=== PATIENT | male | born 1940 | race Caucasian/White ===

== ENCOUNTER 2018-09-04 10:40 | Inpatient (IN) | payer OTHER ==
[2018-09-04] MEDS ORDERED: NA CHLORIDE 0.9% 1,000 ML ONE (11:19)
[2018-09-04 11:30] LABS: Absolute Lymphocytes (CBC) 0.4 K/uL (0.7-4.9); Absolute Neutrophil 5.5 K/uL (1.8-8.0); Basophils % 0.4 % (0-1.3); Eosinophils % 0.8 % (0-4.4); Hematocrit 43.5 % (39.6-49.0); Lymphocytes % 6.2 % (15.3-44.8); Monocytes % 0.5 % (3.3-12.3); RBC Red Blood Cell Count 4.56 M/uL (4.33-5.43)
[2018-09-04 11:34] LABS: Protime INR 1.05
--- NOTE | 2018-09-04 11:40 | RAD REPORT ---
EXAM DESCRIPTION: RAD - Chest Single View - 09/04/2018 11:25 am CLINICAL HISTORY: COUGH Chest pain. COMPARISON: Chest Single View dated 07/28/2016; Chest Single View dated 06/23/2016; CHEST PA AND LAT 2 VIEW dated 10/09/2015; CHEST SINGLE VIEW dated 02/13/2015 FINDINGS: Portable technique limits examination quality. The lungs are grossly clear. Calcifications in the left lobe appear unchanged. The heart is normal in size with changes of prior CABG seen. IMPRESSION: No acute intrathoracic process suspected.
[2018-09-04 12:14] LABS: ALT/SGPT 27 U/L (12-78); AST/SGOT 22 U/L (15-37); Albumin 3.4 g/dL (3.4-5.0); Alkaline Phosphatase 58 U/L (45-117); BUN Blood Urea Nitrogen 27 mg/dL (7-18); Bicarbonate 23 mmol/L (21-32); Bilirubin Direct 0.2 mg/dL (0-0.2); Bilirubin Total 0.5 mg/dL (0.2-1.0); Glucose Level 130 mg/dL (74-106); NT PRO-BNP 237 pg/mL (<450); Potassium 3.4 mmol/L (3.5-5.1); Protein, Total 7.3 g/dL (6.4-8.2); Sodium Level 141 mmol/L (136-145); Troponin (Emerg Dept Use Only) < 0.02 ng/mL (0.0-0.045)
[2018-09-04 12:16] LABS: Blood Morphology Comment NOTED (NOT SEEN); Magnesium 1.1 mg/dL (1.8-2.4); Platelet Estimate ADEQ; Platelets, Giant FEW; Polychromasia 1+
[2018-09-04 13:46] LABS: Urine Bacteria >50 /HPF (NONE SEEN); Urine Culture Reflex Order REFLEXED; Urine RBC <5 /HPF (NONE SEEN)
[2018-09-04] MEDS ORDERED: POTASSIUM 25 MEQ EFFERV TAB ONE (13:47)
[2018-09-04] MEDS ORDERED: VANCOMYCIN 0 GM/0 ML BAG ONE (13:47)
[2018-09-04] MEDS ORDERED: LEVALBUTEROL 1.25 MG/3 ML NEB ONE (13:47)
[2018-09-04] MEDS ORDERED: NA CHLORIDE 0.9% 2,000 ML ONE (13:48)
[2018-09-04] MEDS ORDERED: CEFEPIME 0 GM/0 ML BAG IV ONE (13:48)
[2018-09-04] MEDS ORDERED: Magnesium Sulfate 2gm IVPB 2 G/50 ML BAG IV ONE (13:48)
--- NOTE | 2018-09-04 14:01 | EDPHYS ---
Physician Documentation [facility] Name: Ruel Kumari Age: 78 yrs Sex: Male : 1940 Arrival Date: 09/04/2018 Time: 10:40 Bed 6 Private MD: ED Physician Shaun Tomlinson HPI: 09/04 10:52 This 78 yrs old Male presents to ER via EMS with complaints of cough. cp 10:55 The patient or guardian reports cough, that is intermittent. cp 10:55 Onset: The symptoms/episode began/occurred this morning. Severity of symptoms: in the emergency department the symptoms are unchanged, despite home interventions. Associated signs and symptoms: Pertinent positives: pain bilateral leg. 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 - Social history:: Smoking status: Patient/guardian denies using tobacco. - Ebola Screening: : Patient negative for fever greater than or equal to 101.5 degrees Fahrenheit, and additional compatible Ebola Virus Disease symptoms Patient denies exposure to infectious person Patient denies travel to an Ebola-affected area in the 21 days before illness onset No symptoms or risks identified at this time. ROS: 11:00 Constitutional: Positive for low grade fever, Negative for body aches, poor PO intake. cp 11:00 Eyes: Negative for injury, pain, redness, and discharge. cp 11:00 Cardiovascular: Negative for chest pain, edema, palpitations. cp 11:00 Respiratory: Positive for cough, Negative for shortness of breath, wheezing. 11:00 Abdomen/GI: Positive for vomiting, diarrhea, Negative for abdominal pain, constipation, anorexia, dysphagia, black/tarry stool, rectal bleeding. 11:00 Back: Negative for pain at rest, pain with movement, radiated pain. 11:00 : Negative for hematuria, burning with urination. 11:00 Skin: Negative for cellulitis, rash. 11:00 Neuro: Positive for general weakness, Negative for altered mental status, headache. 11:00 ENT: Negative for drainage from ear(s), ear pain, sore throat, difficulty swallowing, cp difficulty handling secretions. 11:00 All other systems are negative. Exam: 11:03 ECG was reviewed by the Attending Physician. cp 11:05 Constitutional: The patient appears in no acute distress, alert, awake, cp non-diaphoretic, non-toxic, well developed, well nourished. 11:05 Head/Face: Normocephalic, atraumatic. cp 11:05 Eyes: Periorbital structures: appear normal, Pupils: equal, round, and reactive to light and accomodation, Extraocular movements: intact throughout, Conjunctiva: normal, no exudate, no injection, Sclera: no appreciated abnormality, Lids and lashes: appear normal, bilaterally. 11:05 ENT: External ear(s): are unremarkable, Ear canal(s): are normal, clear, TM's: bulging, is not appreciated, bilaterally, dullness, bilaterally, erythema, is not appreciated, bilaterally, Nose: is normal, Mouth: Lips: moist, Oral mucosa: moist, Posterior pharynx: Airway: no evidence of obstruction, patent, Tonsils: are normal in appearance, Uvula: midline, swelling, is not appreciated, erythema, is not appreciated, exudate, is not appreciated. 11:05 Neck: ROM/movement: is normal, is supple, without pain, no range of motions limitations, no meningismus, no nuchal rigidity. 11:05 Chest/axilla: Inspection: normal, Palpation: is normal, no crepitus, no tenderness. 11:05 Cardiovascular: Rate: tachycardic, Rhythm: regular, Heart sounds: murmur, not appreciated, Edema: is not appreciated, JVD: is not appreciated. 11:05 Respiratory: the patient does not display signs of respiratory distress, Respirations: normal, no use of accessory muscles, no retractions, no splinting, no tachypnea, labored breathing, is not present, Breath sounds: decreased breath sounds, that are mild, are located in both bases, rhonchi, are not appreciated, stridor, is not appreciated, wheezing: is not appreciated. 11:05 Abdomen/GI: Inspection: abdomen appears normal, Bowel sounds: normal, in all quadrants, Palpation: abdomen is soft and non-tender, in all quadrants, rebound tenderness, is not appreciated, involuntary guarding, is not appreciated. 11:05 Skin: cellulitis, is not appreciated, no rash present. 11:05 Neuro: Orientation: is normal, Mentation: is normal, Motor: no acute changes, weakness noted left arm and left leg from previous CVA. Vital Signs: 10:46 BP 171 / 76; Pulse 112; Resp 24; Temp 100.0; Pulse Ox 91% on R/A; Weight 72.57 kg; bp Height 5 ft. 6 in. (167.64 cm); 11:21 BP 129 / 80; Pulse 105; Resp 22 S; Pulse Ox 93% on 3 lpm NC; jl7 12:00 BP 120 / 64; Pulse 98; Resp 16 S; Pulse Ox 99% on 3 lpm NC; jl7 13:00 BP 139 / 80; Pulse 99; Resp 16 S; Pulse Ox 98% on R/A; jl7 14:00 BP 123 / 81; Pulse 98; Resp 16 S; Pulse Ox 98% on 3 lpm NC; jl7 14:30 BP 121 / 68; Pulse 98; Resp 16; Pulse Ox 100% on 3 lpm NC; jl7 15:00 BP 121 / 57; Pulse 96; Resp 16; Pulse Ox 98% on 3 lpm NC; jl7 16:00 BP 123 / 64; Pulse 102; Resp 18 S; Pulse Ox 96% on R/A; jl7 10:46 Body Mass Index 25.82 (72.57 kg, 167.64 cm) bp MDM: 10:45 Patient medically screened. mariah 14:00 Physician consultation: A Uri AL was contacted at 13:55, regarding admission, cp patient's condition, would like medications started, Levaquin and Metronidazole. 14:00 Data reviewed: vital signs, nurses notes, lab test result(s), EKG, radiologic studies, cp plain films, and as a result, I will admit patient. Test interpretation: by ED physician or midlevel provider: ECG, plain radiologic studies. Response to treatment: the patient's symptoms have markedly improved after treatment. 09/04 10:51 Order name: Lactate; Complete Time: 12:18 cp 09/04 12:18 Interpretation: Abnormal: LAC 3.3. cp 09/04 10:51 Order name: Influenza Screen (a \T\ B); Complete Time: 11:47 cp 09/04 12:07 Interpretation: Reviewed. cp 09/04 10:51 Order name: Basic Metabolic Panel; Complete Time: 12:18 cp 09/04 12:45 Interpretation: Normal except: K 3.4; GLUC 130; BUN 27; GFR 62; CA 8.3. cp / 10:51 Order name: CBC with Diff; Complete Time: 12:18 cp 09/04 11:48 Interpretation: Normal except: BERRY% 92.1; LYM% 6.2; MN% 0.5; LYMA 0.4; MNA 0.0. cp / 10:51 Order name: LFT's; Complete Time: 12:18 cp 09/04 10:51 Order name: Magnesium; Complete Time: 12:18 cp 09/04 12:45 Interpretation: Abnormal: MG 1.1. cp 09/04 10:51 Order name: NT PRO-BNP; Complete Time: 12:18 cp 09/04 10:51 Order name: PT-INR; Complete Time: 11:47 cp 09/04 10:51 Order name: Troponin (emerg Dept Use Only); Complete Time: 12:18 cp 09/04 10:51 Order name: Procalcitonin; Complete Time: 12:16 cp 09/04 12:16 Interpretation: Normal except: Procalcitonin 1.39. cp 09/04 10:51 Order name: Blood Culture Adult (2) cp / 12:16 Order name: Manual Differential; Complete Time: 12:18 EDMS 09/04 13:14 Order name: Urine Microscopic Only; Complete Time: 13:51 cp 09/04 10:51 Order name: XRAY Chest (1 view); Complete Time: 11:47 cp 09/04 11:47 Interpretation: Report review. cp 09/04 13:14 Order name: Urine Culture cp 09/04 13:17 Order name: Urine Dipstick--Ancillary (enter results) 09/04 13:59 Order name: Stool Culture cp 09/04 13:59 Order name: CDIFF 09/04 14:35 Order name: Basic Metabolic Panel EDMS 09/04 14:35 Order name: Basic Metabolic Panel EDMS 09/04 14:35 Order name: CBC with Automated Diff EDMS 09/04 14:35 Order name: CBC with Automated Diff EDMS 09/04 10:51 Order name: EKG; Complete Time: 10:52 cp 09/04 10:51 Order name: Cardiac monitoring; Complete Time: 11:23 cp 09/04 10:51 Order name: EKG - Nurse/Tech; Complete Time: 11:23 cp 09/04 10:51 Order name: IV Saline Lock; Complete Time: 11:23 cp 09/04 10:51 Order name: Labs collected and sent; Complete Time: 11:23 cp 09/04 10:51 Order name: O2 Per Protocol; Complete Time: 11:23 cp 09/04 10:51 Order name: O2 Sat Monitoring; Complete Time: 11:23 cp 09/04 11:52 Order name: Urine Dipstick-Ancillary (obtain specimen); Complete Time: 13:19 cp 09/04 12:32 Order name: Cath; Complete Time: 13:19 cp 09/04 13:59 Order name: Diet Regular; Complete Time: 14:00 cp EC:03 Rate is 113 beats/min. Rhythm is regular. [place] interval is normal. QRS interval is cp prolonged at 122 msec. QT interval is normal. T waves are Inverted in leads V2, V3. Interpreted by me. Reviewed by me. Administered Medications: 11:21 Drug: NS 0.9% 500 ml Route: IV; Rate: bolus; Site: right antecubital; jl7 12:00 Follow up: IV Status: Completed infusion jl7 11:21 Drug: NS 0.9% 1000 ml Route: IV; Rate: 100 ml/hr; Site: right antecubital; jl7 16:23 Follow up: IV Status: Infusion continued upon admission jl7 12:33 CANCELLED (Physician Discretion): NS 0.9% 1000 ml IV at 1 bolus Per protocol; 1000 mL cp bolus 13:30 Drug: NS 0.9% (30 ml/kg) 30 ml/kg Route: IV; Rate: bolus; Site: right antecubital; 7 15:30 Follow up: IV Status: Completed infusion [facility] 13:57 Not Given (Physician Discretion): Cefepime 1 grams IVPB at 200 ml/hr once over 30 mins; cp (mix in NS 100 mL) 13:57 Not Given (Physician Discretion): vancoMYCIN 1 grams IVPB once over 2 hrs cp 13:58 Drug: Potassium Effervescent Tablet 25 mEq Route: PO; jl7 15:30 Follow up: Response: No adverse reaction jl7 14:27 Drug: Magnesium Sulfate 2 grams Route: IVPB; Infused Over: 2 hrs; Site: right 7 antecubital; 15:30 Follow up: IV Status: Completed infusion [facility] 15:00 Drug: Xopenex (3) 1.25 mg Route: Inhalation; [facility] 15:29 Drug: LevaQUIN 750 mg Volume: 150 ml; Route: IVPB; Infused Over: 90 mins; Site: right 7 antecubital; 16:23 Follow up: Response: No adverse reaction; IV Status: Completed infusion 7 15:29 Drug: metroNIDAZOLE 500 mg Volume: 100 ml; Route: IVPB; Infused Over: 30 mins; Site: [facility] right antecubital; 15:59 Follow up: Response: No adverse reaction; IV Status: Completed infusion 7 Disposition: 09/05 09:18 Co-signature as Attending Physician, Shaun Tomlinson MD I agree with the assessment and mariah plan of care. Disposition: 09/04/18 14:00 Hospitalization ordered by Salma Grewal for Inpatient Admission. Preliminary diagnosis are Other specified sepsis, Diarrhea, unspecified, Hypomagnesemia, Vomiting, Urinary tract infection, site not specified. - Bed requested for Telemetry/MedSurg (Inpatient). - Status is Inpatient Admission. jl7 - Condition is Stable. - Problem is new. - Symptoms have improved. UTI on Admission? Yes Signatures: Dispatcher [employer] Chrystal Perea RN RN dw Anderson, Corey, MD MD cha Page, Corey, PA PA cp Leal, Jahala, RN RN jl7 Moy Perez RN RN bp Corrections: (The following items were deleted from the chart) 02/03 11:48 11:47 Normal except: BERRY% 92.1; LYM% 6.2; MN% 0.5; LYMA 0.4. cp cp 12:16 11:40 CBC Smear Scan ordered. EDMS EDMS 12:33 12:17 NS 0.9% 1000 ml IV at 1 bolus Per protocol; 1000 mL bolus ordered. cp cp 12:45 12:18 Normal except: K 3.4; GLUC 130; BUN 27; GFR 62. cp cp 14: 14:00 Hospitalization Ordered by A Uri AL for Inpatient Admission. Preliminary cp diagnosis is Other specified sepsis; Diarrhea, unspecified. Bed requested for Telemetry/MedSurg (Inpatient). Status is Inpatient Admission. Condition is Stable. Problem is new. Symptoms have improved. UTI on Admission? No. cp 14:16 14:01 09/04/2018 14:00 Hospitalization Ordered by A Uri AL for Inpatient Admission. cp Preliminary diagnosis is Other specified sepsis; Diarrhea, unspecified; Hypomagnesemia; Vomiting. Bed requested for Telemetry/MedSurg (Inpatient). Status is Inpatient Admission. Condition is Stable. Problem is new. Symptoms have improved. UTI on Admission? No. cp 15:18 14:16 09/04/2018 14:00 Hospitalization Ordered by A Uri AL for Inpatient Admission. dw Preliminary diagnosis is Other specified sepsis; Diarrhea, unspecified; Hypomagnesemia; Vomiting; Urinary tract infection, site not specified. Bed requested for Telemetry/MedSurg (Inpatient). Status is Inpatient Admission. Condition is Stable. Problem is new. Symptoms have improved. UTI on Admission? Yes. cp 16:30 15:18 09/04/2018 14:00 Hospitalization Ordered by A Uri AL for Inpatient Admission. jl7 Preliminary diagnosis is Other specified sepsis; Diarrhea, unspecified; Hypomagnesemia; Vomiting; Urinary tract infection, site not specified. Bed requested for Telemetry/MedSurg (Inpatient). Status is Inpatient Admission. Condition is Stable. Problem is new. Symptoms have improved. UTI on Admission? Yes. dw 09/05 14:23 11:00 Constitutional: Negative for body aches, chills, fever, poor PO intake, cp cp 14:23 11:00 Eyes: Negative for injury, pain, redness, and discharge, cp cp 14:23 11:00 ENT: Negative for drainage from ear(s), ear pain, sore throat, difficulty cp swallowing, difficulty handling secretions, cp 11:00 Cardiovascular: Negative for chest pain, edema, palpitations, cp cp 14 11: Neck: Negative for pain with movement, pain at rest, stiffness, tenderness, cp cp : Respiratory: Positive for cough, Negative for shortness of breath, wheezing, cp cp : Abdomen/GI: Positive for vomiting, diarrhea, Negative for abdominal pain, cp constipation, anorexia, black/tarry stool, rectal bleeding, cp Back: Negative for pain at rest, pain with movement, radiated pain, cp cp : Negative for hematuria, burning with urination, testicular pain cp cp Skin: Negative for cellulitis, diaphoresis, rash, cp cp Neuro: Positive for general weakness, Negative for altered mental status, cp headache, cp : All other systems are negative, cp cp
--- NOTE | 2018-09-04 14:01 | ER ---
Nurse's Notes [facility] Name: Ruel Kumari Age: 78 yrs Sex: Male : 1940 Arrival Date: 09/04/2018 Time: 10:40 Bed 6 Private MD: Diagnosis: Other specified sepsis;Diarrhea, unspecified;Hypomagnesemia;Vomiting;Urinary tract infection, site not specified Presentation: 09/04 10:41 Presenting complaint: EMS states: NAUSEA, VOMITING AND DIARRHEA SINCE 0900. Transition bp of care: patient was not received from another setting of care. Onset of symptoms was September 04, 2018 at 09:00. Risk Assessment: Do you want to hurt yourself or someone else? Patient reports no desire to harm self or others. Initial Sepsis Screen: Does the patient meet any 2 criteria? HR > 90 bpm. Does the patient have a suspected source of infection? No. Patient's initial sepsis screen is negative. Care prior to arrival: Medication(s) given: zofran 4 mg, IV initiated. 20 GA, in the right antecubital area, Glucose check: 180 Oxygen administered. via nasal cannula. 10:41 Method Of Arrival: EMS: [facility] bp 10:41 Acuity: MARLIN 3 bp Triage Assessment: 10:47 General: Appears in no apparent distress. comfortable, Behavior is cooperative, bp appropriate for age, anxious. Pain: Denies pain. GI: Reports diarrhea, nausea, vomiting. 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 - Social history:: Smoking status: Patient/guardian denies using tobacco. - Ebola Screening: : Patient negative for fever greater than or equal to 101.5 degrees Fahrenheit, and additional compatible Ebola Virus Disease symptoms Patient denies exposure to infectious person Patient denies travel to an Ebola-affected area in the 21 days before illness onset No symptoms or risks identified at this time. Screenin:49 Abuse screen: Denies threats or abuse. Denies injuries from another. Nutritional bp screening: No deficits noted. Tuberculosis screening: No symptoms or risk factors identified. Fall Risk None identified. Assessment: 10:48 General: SEE TRIAGE NOTE. GI: Abdomen is non-distended, Bowel sounds present X 4 quads. bp 12:00 Reassessment: Patient appears in no apparent distress at this time. No changes from 7 previously documented assessment. Patient and/or family updated on plan of care and expected duration. Pain level reassessed. Patient is alert, oriented x 3, equal unlabored respirations, skin warm/dry/pink. 13:00 Reassessment: Patient appears in no apparent distress at this time. Patient and/or jl7 family updated on plan of care and expected duration. Pain level reassessed. Patient is alert, oriented x 3, equal unlabored respirations, skin warm/dry/pink. 14:00 Reassessment: Patient appears in no apparent distress at this time. No changes from jl7 previously documented assessment. Patient and/or family updated on plan of care and expected duration. Pain level reassessed. Patient is alert, oriented x 3, equal unlabored respirations, skin warm/dry/pink. 15:00 Reassessment: Patient appears in no apparent distress at this time. No changes from jl7 previously documented assessment. Patient and/or family updated on plan of care and expected duration. Pain level reassessed. Patient is alert, oriented x 3, equal unlabored respirations, skin warm/dry/pink. Vital Signs: 10:46 BP 171 / 76; Pulse 112; Resp 24; Temp 100.0; Pulse Ox 91% on R/A; Weight 72.57 kg; bp Height 5 ft. 6 in. (167.64 cm); 11:21 BP 129 / 80; Pulse 105; Resp 22 S; Pulse Ox 93% on 3 lpm NC; jl7 12:00 BP 120 / 64; Pulse 98; Resp 16 S; Pulse Ox 99% on 3 lpm NC; jl7 13:00 BP 139 / 80; Pulse 99; Resp 16 S; Pulse Ox 98% on R/A; jl7 14:00 BP 123 / 81; Pulse 98; Resp 16 S; Pulse Ox 98% on 3 lpm NC; jl7 14:30 BP 121 / 68; Pulse 98; Resp 16; Pulse Ox 100% on 3 lpm NC; jl7 15:00 BP 121 / 57; Pulse 96; Resp 16; Pulse Ox 98% on 3 lpm NC; jl7 16:00 BP 123 / 64; Pulse 102; Resp 18 S; Pulse Ox 96% on R/A; jl7 10:46 Body Mass Index 25.82 (72.57 kg, 167.64 cm) bp ED Course: 10:40 Patient arrived in ED. bp 10:42 Triage completed. bp 10:44 Shaun Lozano PA is PHCP. cp 10:45 Shaun Tomlinson MD is Attending Physician. cp 10:48 Arm band placed on. bp 10:49 Patient has correct armband on for positive identification. Placed in gown. Bed in low bp position. Call light in reach. Side rails up X2. 11:03 Rona Talavera RN is Primary Nurse. jl7 11:26 XRAY Chest (1 view) In Process Unspecified. EDMS 13:18 Urine collected: Welch catheter specimen, clear, jaspreet colored. Welch cath inserted, jb1 using sterile technique, 16 Fr., by me, balloon inflated, to gravity drainage, urine specimen collected. 13:20 Maintain EMS IV. Dressing intact. Good blood return noted. Site clean \T\ dry. Gauge \T\ jl 7 site: 20 right AC. 14:00 Salma Grewal MD is Hospitalizing Provider. cp 16:24 No provider procedures requiring assistance completed. Patient admitted, IV remains in jl7 place. intact, No redness/swelling at site. Administered Medications: 11:21 Drug: NS 0.9% 500 ml Route: IV; Rate: bolus; Site: right antecubital; jl7 12:00 Follow up: IV Status: Completed infusion jl7 11:21 Drug: NS 0.9% 1000 ml Route: IV; Rate: 100 ml/hr; Site: right antecubital; jl7 16:23 Follow up: IV Status: Infusion continued upon admission jl7 12:33 CANCELLED (Physician Discretion): NS 0.9% 1000 ml IV at 1 bolus Per protocol; 1000 mL cp bolus 13:30 Drug: NS 0.9% (30 ml/kg) 30 ml/kg Route: IV; Rate: bolus; Site: right antecubital; jl7 15:30 Follow up: IV Status: Completed infusion jl7 13:57 Not Given (Physician Discretion): Cefepime 1 grams IVPB at 200 ml/hr once over 30 mins; cp (mix in NS 100 mL) 13:57 Not Given (Physician Discretion): vancoMYCIN 1 grams IVPB once over 2 hrs cp 13:58 Drug: Potassium Effervescent Tablet 25 mEq Route: PO; jl7 15:30 Follow up: Response: No adverse reaction jl7 14:27 Drug: Magnesium Sulfate 2 grams Route: IVPB; Infused Over: 2 hrs; Site: right 7 antecubital; 15:30 Follow up: IV Status: Completed infusion jl7 15:00 Drug: Xopenex (3) 1.25 mg Route: Inhalation; jl7 15:29 Drug: LevaQUIN 750 mg Volume: 150 ml; Route: IVPB; Infused Over: 90 mins; Site: right jl7 antecubital; 16:23 Follow up: Response: No adverse reaction; IV Status: Completed infusion jl7 15:29 Drug: metroNIDAZOLE 500 mg Volume: 100 ml; Route: IVPB; Infused Over: 30 mins; Site: [facility] right antecubital; 15:59 Follow up: Response: No adverse reaction; IV Status: Completed infusion jl7 Outcome: 14:00 Decision to Hospitalize by Provider. cp 16:29 Admitted to Tele accompanied by tech, family with patient, via stretcher, room 404, jl7 with chart, Report called to RAQUEL Mcqueen 16:29 Condition: stable jl7 16:29 Discharge instructions given to patient, family, Instructed on the need for admit, Demonstrated understanding of instructions. 16:30 Patient left the ED. jl7 Signatures: Dispatcher [employer] EDMS Cesar Castaneda jb1 Shaun Lozano PA PA Rnoa Castro RN RN jl7 Ana, Moy, RN RN bp
[2018-09-04 14:31] LABS: Urine Blood NEGATIVE (NEG); Urine Glucose NEGATIVE (NEG); Urine Protein NEGATIVE (NEG)
[2018-09-04] MEDS ORDERED: ONDANSETRON 4 MG/2 ML VIAL IV PRN ×2 (14:32→17:51)
[2018-09-04] MEDS ORDERED: METRONIDAZOLE 500mg IVPB 500 MG/100 ML BAG IV ONE (14:35)
[2018-09-04] MEDS ORDERED: Levofloxacin 750mg IV 750 MG/150 ML BAG IV ONE (14:35)
[2018-09-04 17:08] VITALS: BMI 24.5
[2018-09-04] MEDS ORDERED: GLUCAGON 1 MG/VIAL IM PRN (17:53)
[2018-09-04] MEDS ORDERED: D50W 25 GM/50 ML SYRINGE IV PRN (17:53)
[2018-09-04] MEDS: ENOXAPARIN 40 MG/0.4 ML SQ SCH (18:00)
[2018-09-04] MEDS: NA CHLORIDE 0.9% 1,000 ML IV SCH (18:27)
[2018-09-04] MEDS: ACETAMINOPHEN 500 MG TAB PO PRN (20:21)
[2018-09-04] MEDS: INSULIN -REGULAR HUMAN 50 UNIT/0.5 ML ML SQ SCH (20:22)
[2018-09-04] MEDS: DIPYRIDAMOLE/ASPIRIN CAP ER PO SCH (20:23)
[2018-09-04] MEDS: METOPROLOL TAR 25 MG TAB PO SCH (20:29)
[2018-09-04] MEDS ORDERED: POTASSIUM 25 MEQ EFFERV TAB PO ONE (21:00)
[2018-09-04] MEDS ORDERED: METOPROLOL TAR 25 MG TAB PO SCH (21:00)
[2018-09-05] MEDS: METRONIDAZOLE 500mg IVPB 500 MG/100 ML BAG IV SCH ×3 (01:28→17:32)
[2018-09-05 03:40] LABS: Absolute Lymphocytes (CBC) 0.7 K/uL (0.7-4.9); Absolute Monocytes 1.1 K/uL (0.1-1.3); Basophils % 0.3 % (0-1.3); Eosinophils % 0.2 % (0-4.4); Hematocrit 39.1 % (39.6-49.0); Lymphocytes % 4.8 % (15.3-44.8); MPV 11.1 fL (7.6-11.3); Monocytes % 7.2 % (3.3-12.3); RBC Red Blood Cell Count 4.06 M/uL (4.33-5.43)
[2018-09-05 03:49] LABS: Magnesium 1.8 mg/dL (1.8-2.4)
[2018-09-05 04:30] LABS: Blood Morphology Comment NOT SEEN (NOT SEEN); Platelet Estimate ADEQ; Urine White Blood Cell Casts OK
[2018-09-05] MEDS ORDERED: MAGNESIUM SULFATE 1 gm IVPB 1 GM/100 ML BAG IV ONE (04:36)
[2018-09-05] MEDS: NA CHLORIDE 0.9% 1,000 ML IV SCH (05:14)
[2018-09-05] MEDS: ACETAMINOPHEN 500 MG TAB PO PRN (05:14)
[2018-09-05] MEDS: NACHLORIDE 0.45% 1,000 ML IV SCH ×2 (07:18→21:20)
--- NOTE | 2018-09-05 07:24 | EKG ---
Test Date: 2018-09-04 Test Time: 10:49:04 Registered Art Therapist: SILVIO MEASUREMENT RESULTS: Intervals: Rate: 113 [place]: 168 QRSD: 122 QT: 370 QTc: 507 [place]: P: 61 AZ: 168 QRS: -51 T: 48 INTERPRETIVE STATEMENTS: Sinus tachycardia Left axis deviation Right bundle branch block Inferior infarct, age undetermined Abnormal ECG Compared to ECG 07/28/2016 14:12:59 Left-axis deviation now present Right bundle-branch block now present Myocardial infarct finding now present Sinus rhythm no longer present Electronically Signed On 09-05-18 07:19:57 [employer]CH SERV[employer]OCIATE by Pramod Galeano
[2018-09-05] MEDS: INSULIN -REGULAR HUMAN 50 UNIT/0.5 ML ML SQ SCH ×4 (07:30→21:00)
[2018-09-05] MEDS ORDERED: Levofloxacin 750mg IV 750 MG/150 ML BAG IV SCH (09:00)
[2018-09-05] MEDS ORDERED: CEFEPIME 1 GM/VIAL IV SCH (09:00)
[2018-09-05] MEDS ORDERED: LISINOPRIL 20 MG TAB PO SCH (09:00)
[2018-09-05] MEDS ORDERED: ROSUVASTATIN 10 MG TAB PO SCH (09:00)
--- NOTE | 2018-09-05 13:27 | RAD REPORT ---
EXAM DESCRIPTION: CTAbdomen Pelvis W Contrast - 09/05/2018 1:17 pm CLINICAL HISTORY: Abdominal pain. sepsis, vomiting, diarrhea COMPARISON: Abdomen Pelvis W Contrast dated 06/23/2016 TECHNIQUE: Biphasic CT imaging of the abdomen and pelvis was performed with 100 ml non-ionic IV cont rast. All CT scans are performed using dose optimization technique as appropriate and may include automated exposure control or mA/KV adjustment according to patient size. FINDINGS: Subsegmental atelectasis is present in both lung bases with small bilateral pleural effusi ons.Moderate axial hiatal hernia is seen. Diffuse fatty liver infiltration is seen. No focal lesion or biliary dilatation. The spleen, pancreas , adrenal glands and kidneys are within normal limits. No bowel obstruction, free air, free fluid or abscess. The appendix is not identified as a discrete structure, however, no secondary findings of appendicitis are identified. No evidence of significan t lymphadenopathy. No suspicious bony findings. Postsurgical changes are present in the right inguinal region. Moderate lumbosacral degenerative changes. IMPRESSION: Subsegmental atelectasis with trace pleural effusions in both lung bases. Diffuse fatty liver.
[2018-09-05] MEDS: ASPIRIN 81 MG CHEWABLE TABLET PO SCH (14:49)
[2018-09-05] MEDS: DIPYRIDAMOLE/ASPIRIN CAP ER PO SCH ×2 (14:49→23:17)
[2018-09-05] MEDS: METOPROLOL TAR 25 MG TAB PO SCH ×2 (14:49→23:18)
[2018-09-05] MEDS: NORTRIPTYLINE HCL 25 MG CAP PO SCH (14:50)
[2018-09-05] MEDS: CEFEPIME/SWI 1gm 1 GM/10 ML SYR IV SCH ×2 (14:50→23:18)
[2018-09-05] MEDS: LISINOPRIL 20 MG TAB PO SCH (14:50)
[2018-09-05] MEDS: MULTIVIT W/ MINERAL TAB PO SCH (14:50)
[2018-09-05] MEDS: ENOXAPARIN 40 MG/0.4 ML SQ SCH (17:00)
[2018-09-05] MEDS: ROSUVASTATIN 10 MG TAB PO SCH (23:17)
[2018-09-06] MEDS: METRONIDAZOLE 500mg IVPB 500 MG/100 ML BAG IV SCH (01:41)
[2018-09-06 04:38] LABS: Absolute Monocytes 1.1 K/uL (0.1-1.3); Absolute Neutrophil 10.6 K/uL (1.8-8.0); Basophils % 0.4 % (0-1.3); Eosinophils % 1.6 % (0-4.4); Hematocrit 41.2 % (39.6-49.0); Lymphocytes % 7.6 % (15.3-44.8); MPV 11.3 fL (7.6-11.3); Monocytes % 8.3 % (3.3-12.3); RBC Red Blood Cell Count 4.33 M/uL (4.33-5.43)
[2018-09-06 04:46] LABS: Bilirubin Total 0.4 mg/dL (0.2-1.0); Magnesium 1.8 mg/dL (1.8-2.4); Potassium 3.9 mmol/L (3.5-5.1); Protein, Total 6.8 g/dL (6.4-8.2)
[2018-09-06] MEDS: INSULIN -REGULAR HUMAN 50 UNIT/0.5 ML ML SQ SCH ×4 (07:30→21:00)
[2018-09-06] MEDS ORDERED: NACHLORIDE 0.45% 1,000 ML IV SCH (08:00)
[2018-09-06] MEDS ORDERED: MAGNESIUM SULFATE 1 gm IVPB 1 GM/100 ML BAG IV ONE (09:00)
[2018-09-06] MEDS ORDERED: POTASSIUM 25 MEQ EFFERV TAB PO ONE (09:00)
[2018-09-06] MEDS: MULTIVIT W/ MINERAL TAB PO SCH (11:00)
[2018-09-06] MEDS: ASPIRIN 81 MG CHEWABLE TABLET PO SCH (11:00)
[2018-09-06] MEDS: SITAGLIPTIN PHOS 100 MG TAB PO SCH (11:01)
[2018-09-06] MEDS: levoFLOXacin 750 MG TAB PO SCH (11:01)
[2018-09-06] MEDS: LISINOPRIL 20 MG TAB PO SCH (11:02)
[2018-09-06] MEDS: METOPROLOL TAR 25 MG TAB PO SCH ×2 (11:02→23:49)
[2018-09-06] MEDS: DIPYRIDAMOLE/ASPIRIN CAP ER PO SCH ×2 (11:03→23:48)
[2018-09-06] MEDS: NORTRIPTYLINE HCL 25 MG CAP PO SCH (11:04)
[2018-09-06] MEDS: PANTOPRAZOLE 40MG TABLET PO SCH ×2 (11:07→23:51)
[2018-09-06] MEDS: AMPICILLIN/SULBACT 3 GM in NA CHLORIDE 0.9% 100 ML IVPB SCH ×3 (13:17→23:48)
[2018-09-06] MEDS: ENOXAPARIN 40 MG/0.4 ML SQ SCH (17:26)
[2018-09-06] MEDS: HOME MED 1 EA UNK (Mirabegron [Myrbetriq] 50 MG) PO SCH (21:00)
[2018-09-06] MEDS: ROSUVASTATIN 10 MG TAB PO SCH (23:48)
--- NOTE | 2018-09-07 00:50 | PN ---
Date of Progress Note: 09/06/2018 Subjective: The patient was seen this morning for followup. He was feeling better this morning. No abdominal pain, nausea, vomiting, or diarrhea. His appetite is good. Yesterday, he did participate well with physical therapy. Denied any shortness of breath. Objective: Vital Signs: Reviewed. HEENT: Examination unremarkable. Lungs: Clear to auscultation. Heart: Sounds normal. Abdomen: Soft. Bowel sounds normal. No guarding, rigidity, tenderness, or distention. Extremities: No leg edema. Laboratory Data: White count 12.9, hemoglobin 13.8, and platelets 164. Urine culture growing Klebsi priscila. Blood culture gram-negative rods. Definite identification and sensitivity result pending. Ch emistry; sodium 141, potassium 3.9, chloride 110, bicarb 22, BUN 12, creatinine 1.02, glucose 201. P rocalcitonin 8.87. Impression: 1.Sepsis, gram-negative. 2.Urinary tract infection. 3.Hypertension. 4.Diabetes mellitus. Plan: We will go ahead and continue Levaquin according to sensitivity result, but change it to oral Levaquin. We will discontinue cefepime and discontinue metronidazole; and according to sensitivity r esult, we will start him on Unasyn. Clinically, the patient is improving. Procalcitonin level is hi gher today compared to time of admission, but I believe that is expected, and next procalcitonin I ex pect it to be normal. Clinically, the patient is improving very well. Ambulation was encouraged. W e will reduce IV fluid, and I will see him tomorrow for followup. Details and plan of treatment disc ussed with him. Plan is to continue IV antibiotic; and depending on the blood culture results, we will decide possible discharge by this weekend with oral antibiotics. KARIN/MODL Voice ID: [id number] Report ID: [id number]
[2018-09-07 05:09] LABS: Potassium 3.8 mmol/L (3.5-5.1)
[2018-09-07] MEDS ORDERED: POTASSIUM 25 MEQ EFFERV TAB PO ONE (05:19)
[2018-09-07 06:04] LABS: Absolute Lymphocytes (CBC) 1.7 K/uL (0.7-4.9); Absolute Monocytes 1.2 K/uL (0.1-1.3); Absolute Neutrophil 6.7 K/uL (1.8-8.0); Basophils % 0.5 % (0-1.3); Eosinophils % 3.5 % (0-4.4); Hematocrit 40.9 % (39.6-49.0); Lymphocytes % 16.9 % (15.3-44.8); MPV 11.4 fL (7.6-11.3); Monocytes % 11.9 % (3.3-12.3); RBC Red Blood Cell Count 4.35 M/uL (4.33-5.43)
[2018-09-07] MEDS: AMPICILLIN/SULBACT 3 GM in NA CHLORIDE 0.9% 100 ML IVPB SCH ×3 (06:07→17:47)
[2018-09-07] MEDS: INSULIN -REGULAR HUMAN 50 UNIT/0.5 ML ML SQ SCH ×4 (07:30→21:00)
[2018-09-07] MEDS: ASPIRIN 81 MG CHEWABLE TABLET PO SCH (09:43)
[2018-09-07] MEDS: METFORMIN HCL 850 MG TAB PO SCH ×2 (09:43→17:16)
[2018-09-07] MEDS: PANTOPRAZOLE 40MG TABLET PO SCH ×2 (09:43→21:08)
[2018-09-07] MEDS: SITAGLIPTIN PHOS 100 MG TAB PO SCH (09:43)
[2018-09-07] MEDS: NORTRIPTYLINE HCL 25 MG CAP PO SCH (09:43)
[2018-09-07] MEDS: levoFLOXacin 750 MG TAB PO SCH (09:43)
[2018-09-07] MEDS: METOPROLOL TAR 25 MG TAB PO SCH ×2 (09:44→21:08)
[2018-09-07] MEDS: MULTIVIT W/ MINERAL TAB PO SCH (09:44)
[2018-09-07] MEDS: DIPYRIDAMOLE/ASPIRIN CAP ER PO SCH ×2 (09:44→21:07)
[2018-09-07] MEDS: LISINOPRIL 20 MG TAB PO SCH (09:44)
[2018-09-07] MEDS: ENOXAPARIN 40 MG/0.4 ML SQ SCH (17:16)
[2018-09-07] MEDS: HOME MED 1 EA UNK (Mirabegron [Myrbetriq] 50 MG) PO SCH (21:00)
[2018-09-07] MEDS: ROSUVASTATIN 10 MG TAB PO SCH (21:08)
--- NOTE | 2018-09-08 00:14 | PN ---
Date of Progress Note: 09/07/2018 Subjective: The patient was seen this morning for followup. Lying in bed, not in any distress. No new complaints or problems reported. Last night, nurse called me regarding a fall and reported small skin tear on the left elbow area. This morning when I talked to the patient, he informs me that he actually was trying to get to open the door as his IV was beeping and he wanted to get some attention from the nursing staff and as he opened the door and was at the door all of a sudden nurse was tryin g to get inside his room and he actually lost his balance and fell down. Denies any pain anywhere fr om this fall. No hip pain, back pain. No head injury. He has a small skin tear on his left elbow, which was covered by Band-Aid yesterday. Objective: Vital Signs: Reviewed. HEENT: Unremarkable. Lungs: Clear to auscultation. Heart: Sounds normal. Abdomen: Soft. Bowel sounds normal. No guarding, rigidity, tenderness, distention. Extremities: No leg edema. Skin: A small skin tear on the left elbow. No active bleeding. No swelling. Laboratory Data: White count 9.9, hemoglobin 14.1, platelets 164. Sodium 142, potassium 3.8, chlori de 110, bicarb 22, BUN 13, creatinine 1.03, glucose 149, procalcitonin 5.59. Urine culture growing K lebsiella. Blood culture growing Enterobacter. Impression: 1.Septicemia, organism Enterobacter. 2.Urinary tract infection, organism Klebsiella. 3.Hypertension. 4.Diabetes mellitus. 5.Skin tear, left arm. Plan: No further intervention except topical application of Neosporin is needed for skin tear on the left elbow region. Continue current antibiotic which is Unasyn and Levaquin. I will see him tomorr ow for followup. Ambulation was encouraged. Possible discharge to go home in later part of this week. KARIN/MODL Voice ID: [id number] Report ID: [id number]
[2018-09-08] MEDS: AMPICILLIN/SULBACT 3 GM in NA CHLORIDE 0.9% 100 ML IVPB SCH ×4 (00:25→16:59)
[2018-09-08] MEDS: INSULIN -REGULAR HUMAN 50 UNIT/0.5 ML ML SQ SCH ×4 (07:30→21:00)
[2018-09-08] MEDS: METFORMIN HCL 850 MG TAB PO SCH ×2 (09:01→16:56)
[2018-09-08] MEDS: LISINOPRIL 20 MG TAB PO SCH (09:46)
[2018-09-08] MEDS: NORTRIPTYLINE HCL 25 MG CAP PO SCH (09:46)
[2018-09-08] MEDS: MULTIVIT W/ MINERAL TAB PO SCH (09:46)
[2018-09-08] MEDS: levoFLOXacin 750 MG TAB PO SCH (09:46)
[2018-09-08] MEDS: PANTOPRAZOLE 40MG TABLET PO SCH ×2 (09:46→21:16)
[2018-09-08] MEDS: ASPIRIN 81 MG CHEWABLE TABLET PO SCH (09:46)
[2018-09-08] MEDS: SITAGLIPTIN PHOS 100 MG TAB PO SCH (09:46)
[2018-09-08] MEDS: DIPYRIDAMOLE/ASPIRIN CAP ER PO SCH ×2 (09:47→21:16)
[2018-09-08] MEDS: METOPROLOL TAR 25 MG TAB PO SCH ×2 (09:47→21:16)
--- NOTE | 2018-09-08 10:55 | HP ---
Date of Admission: 09/05/2018 Chief Complaint: Chills, nausea, vomiting, diarrhea. Admitting Diagnosis: Urinary tract infection. History Of Present Illness: This is a 78-year-old male patient who was doing fine until yesterday, after he took a shower, all of a sudden started to have chills and was brought into the emergency room. reported that he had some nausea, vomiting, and diarrhea as well. Denies any cough, cold, or congestion. No abdominal pain. No urinary complaints. After the patient was evaluated in the emergency room, he was admitted to the hospital with this problem, and he was started on empiric antibiotics, IV fluid as we were concerned about possibility of sepsis after his evaluation in the emergency room. Overnight, after his care that was provided to him in the hospital, he has felt better this morning. When I saw him this morning, his was not present with him and he was by himself, reported that he is feeling better than yesterday. Allergies: NO KNOWN ALLERGIES. Medications: Aggrenox 1 capsule 2 times a day, aspirin 81 mg daily, rosuvastatin 10 mg daily, Januvia 100 mg daily with breakfast, lisinopril 20 mg daily, metformin 850 mg 2 times a day, metoprolol 25 mg 2 times a day, multivitamin daily, nortriptyline 25 mg daily, omeprazole 20 mg daily. He has taken Myrbetriq 50 mg p.o. daily. Review of Systems: Constitutional: As mentioned above. GI: As mentioned above. All other systems reviewed and negative. Past Medical History: Significant for hypertension, mixed hyperlipidemia, type 2 diabetes mellitus, carotid artery stenosis, benign prostatic hypertrophy, overactive bladder, and prior history of stroke, gastroesophageal reflux disease , coronary artery disease. Past Surgical History: Right carotid artery endarterectomy in 2004, coronary artery bypass surgery in 1995, and hernia repair in 2000. Family History: Significant for coronary artery disease, diabetes mellitus, stroke, asbestosis, hypertension. Social History: Negative for smoking and alcohol use. Physical Examination: Vital Signs: His last vital signs this morning, temperature 99.6, pulse 87, respiratory rate 18, blood pressure 126/60. When he first came in yesterday, temperature 100 degrees Fahrenheit, pulse 112, respiratory rate 24, blood pressure 171/76. His height is 5 feet 6 inches, weight 152 pounds. General: Awake, alert, oriented, not in distress. HEENT: Head atraumatic, normocephalic. Conjunctivae nonerythematous. Sclerae white. Mouth, no thrush or edema noted. Ears/Nose, no mass, lesion, discharge noted. Neck: Supple. No JVD, lymph nodes, bruit, thyromegaly noted. Lungs: Bilateral good equal air entry. Clear to auscultation. No rhonchi. No rales. Heart: Normal heart sounds, no murmur or gallop. Abdomen: Soft, bowel sounds normal. No guarding, rigidity, tenderness, mass, hepatosplenomegaly, distention, or bruit noted. Extremities: No leg edema. No calf tenderness. Skin: No rash, ulcer, cellulitis. Lymphatics: No lymph node enlargement in neck, supraclavicular, infraclavicular region. Neuro: Left-sided hemiparesis, which is old and chronic finding. Chest: Unremarkable. External Genitalia: Deferred. Rectal: Deferred. Laboratory Data: Yesterday white count 5.9, hemoglobin 14.8, platelets 206, 92 % neutrophils, and 6% bands. Today, white count 14.9, hemoglobin 13, platelets 162. INR 1.05. Yesterday, sodium 141, potassium 3.4, chloride 107, bicarb 23, BUN 27, creatinine 1.14, glucose 130, magnesium 1.1. Liver function tests unremarkable. Procalcitonin 1.39. Lactic acid was 4.9. This morning, sodium 144, potassium 4, chloride 110, bicarb 26, BUN 18, creatinine 1.16, glucose 151 , magnesium 1.8. Urinalysis from yesterday, more than 50 bacteria, 2+ ketones, otherwise it was negative. Chest x-ray, no acute cardiopulmonary changes noted. Electrocardiogram, no acute ST-T changes. The patient's both sets of blood culture this morning reported as gram-negative rods. Impression: 1. Sepsis. 2. Acute gastroenteritis. 3. Anemia, unspecified. 4. Hypertension. 5. Hypokalemia. 6. Mixed hyperlipidemia. 7. Type 2 diabetes mellitus. 8. Stroke with left-sided hemiparesis. 9. Carotid artery stenosis. 10. Coronary artery disease. 11. Gastroesophageal reflux disease. 12. Benign prostatic hypertrophy. 13. Overactive bladder. Plan: We will go ahead and admit the patient to hospital for further evaluation and management of this problem. The patient is appropriate for inpatient, and is expected to spend 2 midnights in the hospital. We will continue IV fluid. He received 2 L of IV fluid in the emergency room and then we were giving him normal saline at 75 cc/hour. We will change it to half- normal saline at 75 cc/hour after looking at this morning's chemistry results. Home medications will be continued per order. Diabetes will be managed with sliding scale. The patient was started on Levaquin and metronidazole yesterday. We will continue those 2 antibiotics and add cefepime as per ordered this morning. DVT prophylaxis will be given using Lovenox. We will consult Physical Therapy, and we will get a CAT scan of abdomen and pelvis done today, we will follow up on that result, and stool for C diff and culture is pending. Urine culture, preliminary results more than 100,000 colony, definite identification and sensitivity result pending. We will see the patient tomorrow for followup. Details and plan of treatment discussed with him. KARIN/LAUREN Voice ID: [id number]
[2018-09-08] MEDS: ENOXAPARIN 40 MG/0.4 ML SQ SCH (16:56)
[2018-09-08] MEDS: HOME MED 1 EA UNK (Mirabegron [Myrbetriq] 50 MG) PO SCH (21:00)
[2018-09-08] MEDS: ROSUVASTATIN 10 MG TAB PO SCH (21:16)
[2018-09-09] MEDS: AMPICILLIN/SULBACT 3 GM in NA CHLORIDE 0.9% 100 ML IVPB SCH ×5 (00:49→23:35)
[2018-09-09 06:26] LABS: Absolute Lymphocytes (CBC) 1.7 K/uL (0.7-4.9); Absolute Monocytes 1.2 K/uL (0.1-1.3); Basophils % 0.7 % (0-1.3); Eosinophils % 6.7 % (0-4.4); Hematocrit 39.8 % (39.6-49.0); MPV 10.2 fL (7.6-11.3); Monocytes % 11.7 % (3.3-12.3); RBC Red Blood Cell Count 4.18 M/uL (4.33-5.43)
[2018-09-09 06:30] LABS: Magnesium 1.7 mg/dL (1.8-2.4); Potassium 3.8 mmol/L (3.5-5.1)
[2018-09-09] MEDS ORDERED: MAGNESIUM SULFATE 1 gm IVPB 1 GM/100 ML BAG IV ONE (06:45)
[2018-09-09] MEDS ORDERED: POTASSIUM CL SA 10 MEQ TAB PO ONE (06:48)
[2018-09-09] MEDS: INSULIN -REGULAR HUMAN 50 UNIT/0.5 ML ML SQ SCH ×4 (07:30→21:00)
--- NOTE | 2018-09-09 07:52 | PN ---
Date of Progress Note: 09/08/2018 Subjective: The patient was seen this morning for followup. His was present with him. Objective: Vital Signs: Reviewed. General: He feels fine. Afebrile. Good appetite. HEENT Examination: Unremarkable. Lungs: Clear to auscultation. Heart: Sounds normal. Abdomen: Soft. Bowel sounds normal. No guarding, rigidity, tenderness, distention. Extremities: No leg edema. Impression: 1.Septicemia. 2.Urinary tract infection. 3.Stroke. 4.Hypertension. 5.Type 2 diabetes mellitus. Plan: We will continue current medications and antibiotics. Physical therapy to continue to help am bulate the patient. Plan is to discharge him to go home either Wednesday or Wednesday, and until that po int we will continue current antibiotics. Details and plan of treatment discussed with the patient a nd his . I also informed them that on outpatient basis continue to follow up with urologist for further evaluation and management of this urinary tract infection. I suspect that his urinary tract infection leading to this septicemia is likely due to probably him not able to empty his bladder com pletely, likely due to underlying enlarged prostate, and all these details were discussed with the patient as well as patient's . I will refer him to see urologist on outpatien t basis. KARIN/MODL Voice ID: [id number] Report ID: [id number]
[2018-09-09] MEDS: METFORMIN HCL 850 MG TAB PO SCH ×2 (11:14→16:41)
[2018-09-09] MEDS: LISINOPRIL 20 MG TAB PO SCH (11:15)
[2018-09-09] MEDS: MULTIVIT W/ MINERAL TAB PO SCH (11:15)
[2018-09-09] MEDS: DIPYRIDAMOLE/ASPIRIN CAP ER PO SCH ×2 (11:15→21:34)
[2018-09-09] MEDS: NORTRIPTYLINE HCL 25 MG CAP PO SCH (11:15)
[2018-09-09] MEDS: PANTOPRAZOLE 40MG TABLET PO SCH ×2 (11:15→21:36)
[2018-09-09] MEDS: levoFLOXacin 750 MG TAB PO SCH (11:16)
[2018-09-09] MEDS: METOPROLOL TAR 25 MG TAB PO SCH ×2 (11:16→21:34)
[2018-09-09] MEDS: ASPIRIN 81 MG CHEWABLE TABLET PO SCH (11:16)
[2018-09-09] MEDS: SITAGLIPTIN PHOS 100 MG TAB PO SCH (11:17)
[2018-09-09] MEDS: ENOXAPARIN 40 MG/0.4 ML SQ SCH (16:41)
[2018-09-09] MEDS: HOME MED 1 EA UNK (Mirabegron [Myrbetriq] 50 MG) PO SCH (21:00)
[2018-09-09] MEDS: ROSUVASTATIN 10 MG TAB PO SCH (21:35)
--- NOTE | 2018-09-09 23:03 | PN ---
Date of Progress Note: 09/09/2018 Subjective: Patient was seen this morning for followup. No new complaints or problems reported by edwina desai. Objective: GENERAL: Lying in bed, not in distress. VITAL SIGNS: Reviewed. HEENT: Unremarkable. LUNGS: Clear to auscultation. HEART: Sounds normal. ABDOMEN: Soft. Bowel sounds normal. No guarding, rigidity, tenderness, or distention. EXTREMITIES: No leg edema. Laboratory Data: White count 10.7, hemoglobin 13.6, platelets 233. Procalcitonin 1.51. Sodium 139, potassium 3.8, chloride 107, bicarb 24, BUN 20, creatinine 1.14, glucose 138, magnesium 1.7. Impression: 1.Septicemia. 2.Urinary tract infection. 3.Hypomagnesemia. 4.Hypertension. 5.Type 2 diabetes mellitus. Plan: We will continue current antibiotics. The patient's procalcitonin level is improving very wel l with appropriate antibiotic therapy. We will continue current medications and I will see him tomor row for followup. Replace magnesium per protocol. KARIN/MODL Voice ID: [id number] Report ID: [id number]
[2018-09-10] MEDS: AMPICILLIN/SULBACT 3 GM in NA CHLORIDE 0.9% 100 ML IVPB SCH ×3 (05:44→17:06)
[2018-09-10 06:48] LABS: Magnesium 1.9 mg/dL (1.8-2.4); Potassium 3.4 mmol/L (3.5-5.1)
[2018-09-10] MEDS: INSULIN -REGULAR HUMAN 50 UNIT/0.5 ML ML SQ SCH ×4 (07:30→20:37)
[2018-09-10] MEDS ORDERED: POTASSIUM CL SA 10 MEQ TAB PO ONE (09:00)
[2018-09-10] MEDS: METOPROLOL TAR 25 MG TAB PO SCH ×2 (09:32→20:36)
[2018-09-10] MEDS: METFORMIN HCL 850 MG TAB PO SCH ×2 (09:32→17:06)
[2018-09-10] MEDS: levoFLOXacin 750 MG TAB PO SCH (09:32)
[2018-09-10] MEDS: NORTRIPTYLINE HCL 25 MG CAP PO SCH (09:32)
[2018-09-10] MEDS: DIPYRIDAMOLE/ASPIRIN CAP ER PO SCH ×2 (09:32→20:36)
[2018-09-10] MEDS: LISINOPRIL 20 MG TAB PO SCH (09:33)
[2018-09-10] MEDS: ASPIRIN 81 MG CHEWABLE TABLET PO SCH (09:33)
[2018-09-10] MEDS: MULTIVIT W/ MINERAL TAB PO SCH (09:33)
[2018-09-10] MEDS: PANTOPRAZOLE 40MG TABLET PO SCH ×2 (09:33→20:36)
[2018-09-10] MEDS: SITAGLIPTIN PHOS 100 MG TAB PO SCH (09:33)
--- NOTE | 2018-09-10 13:30 | PN ---
Date of Progress Note: 09/10/2018 Subjective: The patient was seen this morning for followup. No new complaints or problems reported by patient. Lying in bed, not in distress. Objective: Vital Signs: Reviewed. HEENT: Unremarkable. Lungs: Clear to auscultation. Heart: Sounds normal. Abdomen: Soft. Bowel sounds normal. No guarding, rigidity, tenderness, distention. Extremity: No leg edema. Laboratory Data: Sodium 141, potassium 3.4, chloride 105, bicarb 27, BUN 21, creatinine 1.11, glucos e 139, magnesium 1.9. Impression: 1.Sepsis. 2.Urinary tract infection. 3.Hypokalemia. 4.Hypertension. 5.Type 2 diabetes mellitus. Plan: We will continue current antibiotic, which is Unasyn and Levaquin p.o. Replace potassium per protocol. We will repeat blood work tomorrow and if his condition is stable tomorrow, our plan is to discharge him to go home with oral antibiotics tomorrow. KARIN/MODL Voice ID: [id number] Report ID: [id number]
[2018-09-10] MEDS: ENOXAPARIN 40 MG/0.4 ML SQ SCH (17:06)
[2018-09-10] MEDS: ROSUVASTATIN 10 MG TAB PO SCH (20:36)
[2018-09-10] MEDS: HOME MED 1 EA UNK (Mirabegron [Myrbetriq] 50 MG) PO SCH (20:37)
[2018-09-11 04:35] VITALS: O2SAT 95
[2018-09-11] MEDS: AMPICILLIN/SULBACT 3 GM in NA CHLORIDE 0.9% 100 ML IVPB SCH ×4 (04:59→11:27)
[2018-09-11 06:14] LABS: Absolute Lymphocytes (CBC) 1.9 K/uL (0.7-4.9); Absolute Monocytes 1.4 K/uL (0.1-1.3); Absolute Neutrophil 8.1 K/uL (1.8-8.0); Basophils % 0.3 % (0-1.3); Eosinophils % 4.5 % (0-4.4); Hematocrit 39.9 % (39.6-49.0); Lymphocytes % 15.7 % (15.3-44.8); MPV 9.5 fL (7.6-11.3); Monocytes % 11.8 % (3.3-12.3); RBC Red Blood Cell Count 4.13 M/uL (4.33-5.43)
[2018-09-11 07:04] LABS: Potassium 3.6 mmol/L (3.5-5.1)
[2018-09-11] MEDS: INSULIN -REGULAR HUMAN 50 UNIT/0.5 ML ML SQ SCH ×2 (07:30→11:30)
[2018-09-11] MEDS ORDERED: POTASSIUM 25 MEQ EFFERV TAB PO ONE (09:00)
[2018-09-11] MEDS: ASPIRIN 81 MG CHEWABLE TABLET PO SCH (09:47)
[2018-09-11] MEDS: DIPYRIDAMOLE/ASPIRIN CAP ER PO SCH (09:47)
[2018-09-11] MEDS: LISINOPRIL 20 MG TAB PO SCH (09:47)
[2018-09-11] MEDS: MULTIVIT W/ MINERAL TAB PO SCH (09:48)
[2018-09-11] MEDS: PANTOPRAZOLE 40MG TABLET PO SCH (09:48)
[2018-09-11] MEDS: levoFLOXacin 750 MG TAB PO SCH (09:48)
[2018-09-11] MEDS: METOPROLOL TAR 25 MG TAB PO SCH (09:48)
[2018-09-11] MEDS: METFORMIN HCL 850 MG TAB PO SCH (09:49)
[2018-09-11] MEDS: NORTRIPTYLINE HCL 25 MG CAP PO SCH (09:49)
[2018-09-11] MEDS: SITAGLIPTIN PHOS 100 MG TAB PO SCH (09:55)
[2018-09-11 11:48] LABS: Absolute Lymphocytes (CBC) 1.6 K/uL (0.7-4.9); Absolute Monocytes 1.2 K/uL (0.1-1.3); Basophils % 0.6 % (0-1.3); Eosinophils % 3.6 % (0-4.4); Hematocrit 42.2 % (39.6-49.0); Lymphocytes % 14.2 % (15.3-44.8); MPV 9.8 fL (7.6-11.3); Monocytes % 10.3 % (3.3-12.3); RBC Red Blood Cell Count 4.41 M/uL (4.33-5.43)
[2018-09-11 13:15] VITALS: BP 137/73; TEMP 97.6
[2018-09-11] MEDS ORDERED: AMPICILLIN/SULBACT 3 GM in NA CHLORIDE 0.9% 100 ML IVPB SCH (14:00)
== END 2018-09-11 14:31 | disposition home or self-care (01) | DRG 872 ==
LOC: ER 10:40 → ERHOLD 14:31 → 4TH 15:54
PROVIDERS: ADMIT Internal Medicine; ATTEND Internal Medicine
DX: A41.9 Sepsis, unspecified organism (principal); N39.0 Urinary tract infection, site not specified; I69.354 Hemiplegia and hemiparesis following cerebral infarction affecting left non-dominant side; E78.2 Mixed hyperlipidemia; E11.9 Type 2 diabetes mellitus without complications; Z79.4 Long term (current) use of insulin; I65.29 Occlusion and stenosis of unspecified carotid artery; N40.0 Benign prostatic hyperplasia without lower urinary tract symptoms; N32.81 Overactive bladder; Z86.73 Personal history of transient ischemic attack (TIA), and cerebral infarction without residual deficits; K21.9 Gastro-esophageal reflux disease without esophagitis; I25.10 Atherosclerotic heart disease of native coronary artery without angina pectoris; Z95.1 Presence of aortocoronary bypass graft; K52.9 Noninfective gastroenteritis and colitis, unspecified; D64.9 Anemia, unspecified; E87.6 Hypokalemia; I10 Essential (primary) hypertension; E83.42 Hypomagnesemia
CPT/HCPCS: 36415; 51702; 71045; 74177; 80048; 80053; 80076; 81003; 81015; 82962; 83605; 83735; 83880; 84132; 84145; 84484; 85025; 85610; 87040; 87077; 87086; 87088; 87186; 87205; 87804; 93005; 96361; 96365; 96367; 97112; 97116; 97163; 97530; 99285; J0295; J0692; J1650; J3370; J3475; J7030; Q9967

== ENCOUNTER 2019-11-03 09:06 | Emergency (ER) | payer OTHER ==
--- NOTE | 2019-11-03 09:55 | RAD REPORT ---
EXAM DESCRIPTION: RAD - Elbow Left 2 View - 11/03/2019 9:50 am CLINICAL HISTORY: Left elbow pain status fall. FINDINGS: No fracture or dislocation is seen.
--- NOTE | 2019-11-03 09:59 | RAD REPORT ---
EXAM DESCRIPTION: RAD - Pelvis - 11/03/2019 9:51 am CLINICAL HISTORY: Pelvic pain status post injury FINDINGS: No fracture or dislocation is seen. Bones are osteoporotic If the patient continues to have symptoms to suggest an occult fracture then MRI would be recommended A 3 centimeter vague density abuts the proximal left femoral diaphysis. The border is sclerotic. It l ikely is benign. It is recommended that the patient have a followup x-ray of the proximal left femur in 3 months to assess stability
--- NOTE | 2019-11-03 10:04 | RAD REPORT ---
EXAM DESCRIPTION: RAD - Hip Left 2 View - 11/03/2019 9:51 am CLINICAL HISTORY: Left hip pain FINDINGS: No fracture or dislocation is seen. Bones are osteoporotic If the patient continues to have symptoms to suggest an occult fracture then MRI would be recommended A 3 centimeter vague density abuts the proximal left femoral diaphysis. The border is sclerotic. It l ikely is benign. It is recommended that the patient have a followup x-ray of the proximal left femur in 3 months to assess stability .
[2019-11-03 10:20] LABS: Absolute Lymphocytes (CBC) 1.8 K/uL (0.7-4.9); Basophils % 0.9 % (0-1.3); Hematocrit 38.8 % (39.6-49.0); Lymphocytes % 18.5 % (15.3-44.8); MPV 10.5 fL (7.6-11.3); RBC Red Blood Cell Count 4.01 M/uL (4.33-5.43)
[2019-11-03 10:36] LABS: Protime INR 0.94
--- NOTE | 2019-11-03 10:57 | ER ---
Nurse's Notes [facility] Name: Ruel Kumari Age: 79 yrs Sex: Male : 1940 Arrival Date: 11/03/2019 Time: 09:09 Bed 6 Private MD: Salma Grewal C Diagnosis: Contusion of left hip;Contusion of left elbow;Dehydration Presentation: 11/02 09:27 Chief complaint: Spouse and/or significant other states: pt had a fall last Wednesday, iw has been c/o pain to left hip since then, tripped and fell backwards last night, and again this morning, denies hitting head, also has pain and swelling to left elbow. Coronavirus screen: Patient denies fever greater than 100.4F, cough, shortness of breath, or difficulty breathing. Proceed with normal triage process. Ebola Screen: Patient negative for fever greater than or equal to 101.5 degrees Fahrenheit, and additional compatible Ebola Virus Disease symptoms Patient denies exposure to infectious person. Patient denies travel to an Ebola-affected area in the 21 days before illness onset. No symptoms or risks identified at this time. Initial Sepsis Screen: Does the patient meet any 2 criteria? No. Patient's initial sepsis screen is negative. Does the patient have a suspected source of infection? No. Patient's initial sepsis screen is negative. Risk Assessment: Do you want to hurt yourself or someone else? Patient reports no desire to harm self or others. 09:27 Method Of Arrival: Wheelchair iw 09:27 Acuity: MARLIN 4 iw Historical: - Allergies: 09:29 Bactrim; iw - Family history:: not pertinent. - Hospitalizations: : No recent hospitalization is reported. Screenin:50 Abuse screen: Denies threats or abuse. Nutritional screening: No deficits noted. em Tuberculosis screening: No symptoms or risk factors identified. Fall Risk Fall in past 12 months (25 points). IV access (20 points). Total Reeves Fall Scale indicates High Risk Score (45 or more points). Fall prevention measures have been instituted. Placed Close to Nursing Station 1:1 Attendant Assigned. Assessment: 09:37 Reassessment: currently in radiology. em 09:50 Reassessment: Patient appears in no apparent distress at this time. returned from em radiology. 09:50 General: Appears in no apparent distress. comfortable, Behavior is calm, cooperative, em Reports reports falling 2 days ago Denies fever. Pain: Complains of pain in pelvis and left elbow Pain currently is 4 out of 10 on a pain scale. at worst was 10 out of 10 on a pain scale. Pain began 2-3 days ago. Neuro: Level of Consciousness is awake, alert, obeys commands, Oriented to person, place, time, situation, Appropriate for age. Cardiovascular: Capillary refill < 3 seconds Patient's skin is warm and dry. Respiratory: Airway is patent Respiratory effort is even, unlabored, Respiratory pattern is regular, symmetrical. GI: Abdomen is flat. Derm: Skin is intact, is healthy with good turgor, Skin is pink, warm \T\ dry. 09:50 Musculoskeletal: Capillary refill < 3 seconds, Range of motion: limited in left hip. em 11:26 Reassessment: pending completion of IV NS, notified of pt discharge. em Vital Signs: 09:27 Pulse 72; Resp 16; Temp 97.9; Pulse Ox 100% on R/A; Weight 73.94 kg; Height 5 ft. 6 in. iw (167.64 cm); 09:45 BP 127 / 75; Pulse 72; Resp 18; Pulse Ox 99% on R/A; em 10:59 BP 137 / 74; Pulse 72; Resp 18; Pulse Ox 100% on R/A; em 09:27 Body Mass Index 26.31 (73.94 kg, 167.64 cm) iw ED Course: 09:09 Patient arrived in ED. ag5 09:10 Salma Grewal MD is Private Physician. ag5 09:12 Shiv Martinez MD is Attending Physician. rn 09:24 Rona Talavera RN is Primary Nurse. jl7 09:29 Triage completed. iw 09:45 XRAY Hip LEFT 2 view In Process Unspecified. EDMS 09:45 XRAY Pelvis In Process Unspecified. EDMS 09:45 Elbow Left 2 View In Process Unspecified. EDMS 09:45 Patient has correct armband on for positive identification. Bed in low position. Call em light in reach. Side rails up X2. Pulse ox on. NIBP on. 10:00 Initial lab(s) drawn, by me, sent to lab. Inserted saline lock: 22 gauge in right em antecubital area, using aseptic technique. Blood collected. 10:55 Salma Grewal MD is Referral Physician. rn 12:00 No provider procedures requiring assistance completed. IV discontinued, intact, em bleeding controlled, No redness/swelling at site. Pressure dressing applied. Administered Medications: 11:07 Drug: NS 0.9% 500 ml Route: IV; Rate: bolus; Site: right antecubital; em 12:00 Follow up: IV Status: Completed infusion; IV Intake: 500ml em Intake: 12:00 IV: 500ml; Total: 500ml. em Outcome: 10:57 Discharge ordered by MD. rn 12:00 Discharged to home via wheelchair. em 12:00 Condition: good 12:00 Discharge instructions given to patient, Instructed on discharge instructions, follow up and referral plans. Demonstrated understanding of instructions, follow-up care. 12:01 Patient left the ED. em Signatures: Dispatcher [employer] Blaze Hunt RN RN em Williams, Irene, RN RN iw Nieto, Roman, MD MD rn Leal, Jahala, RN RN jl7 G[place]in, Ajare [facility] [place]
--- NOTE | 2019-11-03 10:57 | EDPHYS ---
Physician Documentation [facility] Name: Ruel Kumari Age: 79 yrs Sex: Male : 1940 Arrival Date: 11/03/2019 Time: 09:09 Bed 6 Private MD: Salma Grewal C ED Physician Shiv Martinez HPI: 11/02 09:24 This 79 yrs old Male presents to ER via Unassigned with complaints of Fall rn Injury, Hip Pain. 09:24 Details of fall: The patient fell from an upright position, while walking. Onset: The rn symptoms/episode began/occurred 1 week(s) ago. Associated injuries: The patient sustained left hip and left elbow. Severity of symptoms: At their worst the symptoms were moderate, in the emergency department the symptoms are unchanged. The patient has not experienced similar symptoms in the past. Reports several falls over last week, big fall when tripped over floor fidencio, landed on left side, has been hurting since, daughter reports more falls since then. Reports isolated left hip and left elbow pain. No head or nieck/back injury or pain. No LOC. Takes aggrenox. . Historical: - Allergies: 09:29 Bactrim; iw - Family history:: not pertinent. - Hospitalizations: : No recent hospitalization is reported. ROS: 09:24 Constitutional: Negative for fever, chills, and weight loss, Eyes: Negative for injury, rn pain, redness, and discharge, Neck: Negative for injury, pain, and swelling, Cardiovascular: Negative for chest pain, palpitations, and edema, Respiratory: Negative for shortness of breath, cough, wheezing, and pleuritic chest pain, Abdomen/GI: Negative for abdominal pain, nausea, vomiting, diarrhea, and constipation, Back: Negative for injury and pain, MS/Extremity: + left hip injury and pain, + left elbow pain Skin: Negative for injury, rash, and discoloration, Neuro: Negative for headache, weakness, numbness, tingling, and seizure. Exam: 09:24 Constitutional: This is a well developed, well nourished patient who is awake, alert, rn and in no acute distress. Slow to move from wheelchair to bed. Head/Face: Normocephalic, atraumatic. Eyes: Pupils equal round and reactive to light, extra-ocular motions intact. Lids and lashes normal. Conjunctiva and sclera are non-icteric and not injected. Cornea within normal limits. Periorbital areas with no swelling, redness, or edema. Neck: Trachea midline, no thyromegaly or masses palpated, and no cervical lymphadenopathy. Supple, full range of motion without nuchal rigidity, or vertebral point tenderness. No Meningismus. Cardiovascular: Regular rate and rhythm. No pulse deficits. Respiratory: No increased work of breathing, no retractions or nasal flaring. Abdomen/GI: soft, non-tender Back: No spinal tenderness. No costovertebral tenderness. Full range of motion. MS/ Extremity: Pulses equal, no cyanosis. + able to stand with assistance, + mild left elbow pain and swelling, + left lateral hip tenderness without ecchymosis or swelling. No open wounds. Neuro: Awake and alert, GCS 15, oriented to person, place, time, and situation. Cranial nerves II-XII grossly intact. Motor strength 5/5 in all extremities. Sensory grossly intact. Cerebellar exam normal. Normal gait. Vital Signs: 09:27 Pulse 72; Resp 16; Temp 97.9; Pulse Ox 100% on R/A; Weight 73.94 kg; Height 5 ft. 6 in. iw (167.64 cm); 09:45 BP 127 / 75; Pulse 72; Resp 18; Pulse Ox 99% on R/A; em 10:59 BP 137 / 74; Pulse 72; Resp 18; Pulse Ox 100% on R/A; em 09:27 Body Mass Index 26.31 (73.94 kg, 167.64 cm) iw MDM: 09:14 Patient medically screened. rn 10:05 ED course: No fracture/dislocation of hip/pelvis/elbow. Scerlotic area on femur, unit manager rn reports likely benign, notified patient of incidental finding and given copies of xray reads. . 10:50 Differential diagnosis: contusion, fracture, sprain, strain. Data reviewed: vital rn signs, nurses notes, lab test result(s), radiologic studies, plain films, and as a result, I will discharge patient. Counseling: I had a detailed discussion with the patient and/or guardian regarding: the historical points, exam findings, and any diagnostic results supporting the discharge/admit diagnosis, lab results, radiology results, the need for outpatient follow up, to return to the emergency department if symptoms worsen or persist or if there are any questions or concerns that arise at home. Special discussion: I discussed with the patient/guardian in detail that at this point there is no indication for admission to the hospital. It is understood, however, that if the symptoms persist or worsen the patient needs to return immediately for re-evaluation. Based on the history and exam findings, there is no indication for further emergent testing or inpatient evaluation. I discussed with the patient/guardian the need to see the primary care provider for further evaluation of the symptoms. 11/02 09:24 Order name: CBC with Diff; Complete Time: 10:48 rn 11/02 09:24 Order name: Protime (+inr); Complete Time: 10:48 rn 11/02 09:24 Order name: Ptt, Activated; Complete Time: 10:48 rn 11/02 09:24 Order name: XRAY Hip LEFT 2 view; Complete Time: 10:05 rn 11/02 09:24 Order name: XRAY Pelvis; Complete Time: 10:05 rn 11/02 09:24 Order name: Basic Metabolic Panel; Complete Time: 10:48 rn 11/02 09:24 Order name: IV Start; Complete Time: 09:59 rn 11/02 09:44 Order name: Elbow Left 2 View; Complete Time: 10:05 EDMS Administered Medications: 11:07 Drug: NS 0.9% 500 ml Route: IV; Rate: bolus; Site: right antecubital; em 12:00 Follow up: IV Status: Completed infusion; IV Intake: 500ml em Disposition: 11/03/19 10:57 Discharged to Home. Impression: Contusion of left hip, Contusion of left elbow, Dehydration. - Condition is Stable. - Discharge Instructions: Contusion, Dehydration, Adult, Elbow Contusion. - Medication Reconciliation Form, Thank You Letter, Antibiotic Education, Prescription Opioid Use form. - Follow up: Salma Grewal MD; When: As needed; Reason: Recheck today's complaints, Re-evaluation by your physician. - Problem is new. - Symptoms have improved. Signatures: Dispatcher [employer] EDBlaze Edwards RN RN em Williams, Irene, RN RN iw Shiv Martinez MD MD rn Corrections: (The following items were deleted from the chart) 09:44 09:25 Elbow Left 3 View+RAD.RAD.BRZ ordered. EDMS EDMS 12:01 10:57 11/03/2019 10:57 Discharged to Home. Impression: Contusion of left hip; Contusion em of left elbow; Dehydration. Condition is Stable. Forms are Medication Reconciliation Form, Thank You Letter, Antibiotic Education, Prescription Opioid Use. Follow up: A Grewal; When: As needed; Reason: Recheck today's complaints, Re-evaluation by your physician. Problem is new. Symptoms have improved. rn
[2019-11-03] MEDS ORDERED: NA CHLORIDE 0.9% 500 ML ONE (11:11)
[2019-11-03 12:06] VITALS: TEMP 97.9
[2019-11-03 12:07] VITALS: BP 127/75; O2SAT 99
== END 2019-11-03 12:01 | disposition home or self-care (01) ==
LOC: ER 09:06
DX: S70.02XA Contusion of left hip, initial encounter (principal); S50.02XA Contusion of left elbow, initial encounter; E86.0 Dehydration; M81.0 Age-related osteoporosis without current pathological fracture; M25.852 Other specified joint disorders, left hip; W01.0XXA Fall on same level from slipping, tripping and stumbling without subsequent striking against object, initial encounter; Y93.01 Activity, walking, marching and hiking
CPT/HCPCS: 85025; 80048; 36415; 85610; 85730; 72170; 73502; 73070; 96360; 99284; J7040

== ENCOUNTER 2020-03-24 12:41 | Emergency (ER) | payer OTHER ==
[2020-03-24 14:41] LABS: Absolute Lymphocytes (CBC) 0.6 K/uL (0.7-4.9); Basophils % 0.4 % (0-1.3); Hematocrit 42.7 % (39.6-49.0); Lymphocytes % 6.1 % (15.3-44.8); MPV 10.7 fL (7.6-11.3); RBC Red Blood Cell Count 4.44 M/uL (4.33-5.43)
[2020-03-24 14:55] LABS: Urine Blood NEGATIVE (NEG); Urine Glucose NEGATIVE (NEG); Urine Protein 2+ (NEG); Urine Specific Gravity >1.030 (1.005-1.030); Urine pH 5.5 (5.0-7.0)
[2020-03-24 14:55] LABS: Albumin 3.8 g/dL (3.4-5.0); Bilirubin Total 0.6 mg/dL (0.2-1.0); Potassium 3.6 mmol/L (3.5-5.1); Protein, Total 8.5 g/dL (6.4-8.2)
[2020-03-24 15:00] LABS: Urine Bacteria 20-50 /HPF (NONE SEEN); Urine RBC NONE SEEN /HPF (NONE SEEN)
[2020-03-24 15:01] LABS: Urine Culture Reflex Order REFLEXED; Urine Mucus 2+ /HPF (NONE SEEN)
--- NOTE | 2020-03-24 15:13 | EDPHYS ---
Physician Documentation [facility] Name: Ruel Kumari Age: 80 yrs Sex: Male : 1940 Arrival Date: 03/24/2020 Time: 12:42 Bed 13 Private MD: Salma Grewal C ED Physician Shaun Tomlinson HPI: 03/24 14:07 This 80 yrs old Male presents to ER via Wheelchair with complaints of pm1 Possible UTI. 14:07 The patient presents with urinary symptoms, incontinence of urine. Patient reports that pm1 he does not have any complaints. His forced him to come to the ER for evaluation because she thinks that he has a UTI. He said that he is having urinary incontinence. Since his stroke, he has decreased control of his bladder. He is now wearing diapers. When the urine starts coming out, he has to squeeze the end of penis as he walks to the restroom to prevent getting wet. Historical: - Allergies: 13:15 Bactrim; jl7 - Home Meds: 13:15 Aggrenox 25-200 mg Oral CM12 1 cap 2 times per day [Active]; Crestor 10 mg Oral tab 1 jl7 tab once daily [Active]; nortriptyline 25 mg Oral cap [Active]; metformin 850 mg Oral tab 1 tab 2 times per day [Active]; Januvia 100 mg Oral tab 1 tab once daily [Active]; metoprolol tartrate 25 mg Oral tab 1 tab 2 times per day [Active]; Myrbetriq 50 mg Oral Tb24 1 tab once daily [Active]; lisinopril 20 mg Oral tab 1 tab once daily [Active]; Prilosec 10 mg Oral cpDR [Active]; - PMHx: 13:15 carotid artery sx; Diabetes - NIDDM; Hernia; High Cholesterol; Hypertension; Kidney jl7 stones; left side impairment; stroke; 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 - Social history:: Smoking status: Patient denies any tobacco usage or history of. ROS: 14:07 Constitutional: Negative for fever, chills, and weight loss, Eyes: Negative for injury, pm1 pain, redness, and discharge, ENT: Negative for injury, pain, and discharge, Neck: Negative for injury, pain, and swelling, Cardiovascular: Negative for chest pain, palpitations, and edema, Respiratory: Negative for shortness of breath, cough, wheezing, and pleuritic chest pain, Abdomen/GI: Negative for abdominal pain, nausea, vomiting, diarrhea, and constipation, Back: Negative for injury and pain. 14:07 MS/Extremity: Negative for injury and deformity, Skin: Negative for injury, rash, and discoloration, Neuro: Negative for headache, weakness, numbness, tingling, and seizure. 14:07 : Positive for bladder incontinence Negative for flank pain, burning with urination. Exam: 14:07 Constitutional: This is a well developed, well nourished patient who is awake, alert, pm1 and in no acute distress. Head/Face: Normocephalic, atraumatic. Chest/axilla: Normal chest wall appearance and motion. Nontender with no deformity. No lesions are appreciated. 14:07 Skin: Warm, dry with normal turgor. Normal color with no rashes, no lesions, and no evidence of cellulitis. 14:07 Cardiovascular: Exam negative for acute changes, Rate: normal, Rhythm: regular, Pulses: no pulse deficits are appreciated. 14:07 Respiratory: Exam negative for acute changes, respiratory distress, shortness of breath. 14:07 Abdomen/GI: Exam negative for acute changes, Inspection: abdomen appears normal, Palpation: abdomen is soft and non-tender, in all quadrants. 14:07 Neuro: Orientation: to person, place, situation, Mentation: is normal. Vital Signs: 13:08 BP 137 / 68; Pulse 78; Resp 17; Temp 98.7; Pulse Ox 94% ; Weight 68.04 kg; Pain 0/10; jl7 14:52 BP 120 / 61; Pulse 79; Resp 17 S; Pulse Ox 95% on R/A; jd3 15:31 BP 127 / 61; Pulse 79; Resp 18 S; Pulse Ox 96% on R/A; Pain 0/10; jd3 16:11 Pulse 78; Resp 17 S; Pulse Ox 97% on R/A; jd3 MDM: 14:00 Patient medically screened. pm1 14:29 Data reviewed: vital signs. pm1 15:12 Counseling: I had a detailed discussion with the patient and/or guardian regarding: the pm1 historical points, exam findings, and any diagnostic results supporting the discharge/admit diagnosis, lab results, the need for outpatient follow up, to return to the emergency department if symptoms worsen or persist or if there are any questions or concerns that arise at home. 15:16 ED course: Prior urine culture from September 2018 reviewed. Had sensitivity to pm1 quinolones, bactrim, and Augmentin. Will give the patient Rocephin in the ER. Patient allergic to sulfa. Will discharge home with Augmentin pending urine culture results. Will avoid quinolones due to possible musculoskeletal/connective tissue issues. 03/24 14:06 Order name: Urine Microscopic Only; Complete Time: 15:11 pm1 03/24 14:06 Order name: CBC with Diff pm1 03/24 14:06 Order name: CMP; Complete Time: 14:57 pm1 03/24 14:49 Order name: Urine Dipstick--Ancillary (enter results) ne 03/24 14:50 Order name: Urine Dipstick-Ancillary; Complete Time: 14:57 EDMS 03/24 15:01 Order name: Urine Culture EDWA 03/24 14:06 Order name: Urine Dipstick-Ancillary (obtain specimen); Complete Time: 14:49 pm1 03/24 14:25 Order name: Straight Cath; Complete Time: 14:49 jd3 Administered Medications: 15:24 Drug: Rocephin 1 grams Route: IV; Rate: calculated rate; Site: right antecubital; jd3 16:31 Follow up: Response: No adverse reaction; IV Status: Completed infusion; IV Intake: 23pmkg0 Disposition: 03/25 12:02 Co-signature as Attending Physician, Shaun Tomlinson MD I agree with the assessment and mariah plan of care. Disposition: 03/24/20 15:13 Discharged to Home. Impression: Urinary tract infection, site not specified. - Condition is Stable. - Discharge Instructions: Urinary Tract Infection, Adult. - Prescriptions for Augmentin 875- 125 mg Oral Tablet - take 1 tablet by ORAL route every 12 hours for 10 days; 20 tablet. - Medication Reconciliation Form, Thank You Letter, Antibiotic Education, Prescription Opioid Use form. - Follow up: Emergency Department; When: As needed; Reason: Worsening of condition. Follow up: Salma Grewal MD; When: 2 - 3 days; Reason: Recheck today's complaints, Continuance of care, Re-evaluation by your physician. - Problem is new. - Symptoms have improved. Signatures: Dispatcher [employer] EDMS Shaun Tomlinson, Antelmo Pathak MD, cha, TRADE FACILITATOR TRADE FACILITATOR pm1 Rona Talavera, RN RN jl7 Regis Florence RN RN jd3 Corrections: (The following items were deleted from the chart) 03/24 16:24 15:13 03/24/2020 15:13 Discharged to Home. Impression: Urinary tract infection, site jl7 not specified. Condition is Stable. Forms are Medication Reconciliation Form, Thank You Letter, Antibiotic Education, Prescription Opioid Use. Follow up: Emergency Department; When: As needed; Reason: Worsening of condition. Follow up: A Grewal; When: 2 - 3 days; Reason: Recheck today's complaints, Continuance of care, Re-evaluation by your physician. Problem is new. Symptoms have improved. pm1
--- NOTE | 2020-03-24 15:13 | ER ---
Nurse's Notes [facility] Name: Ruel Kumari Age: 80 yrs Sex: Male : 1940 Arrival Date: 03/24/2020 Time: 12:42 Bed 13 Private MD: Salma Grewal C Diagnosis: Urinary tract infection, site not specified Presentation: 03/24 13:08 Chief complaint: Spouse and/or significant other states: Mrs. Hoffmann reports urinary jl7 frequency "I think he has a UTI and is dehydrated. He was dizzy on Wednesday and weak yesterday. He seems to be taking longer to process things. 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 PT A\\T\\Ox2 to self and place in triage. Pt denies urinary symptoms. Coronavirus screen: Client denies travel out of the [place] in the last 14 days. At this time, the client does not indicate any symptoms associated with coronavirus-19. Ebola Screen: No symptoms or risks identified at this time. Initial Sepsis Screen: Does the patient meet any 2 criteria? No. Patient's initial sepsis screen is negative. Does the patient have a suspected source of infection? No. Patient's initial sepsis screen is negative. Risk Assessment: Do you want to hurt yourself or someone else? Patient reports no desire to harm self or others. Onset of symptoms was March 22, 2020. Care prior to arrival: None. Transition of care: patient was not received from another setting of care. 13:08 Method Of Arrival: Wheelchair jl7 13:08 Acuity: MARLIN 3 jl7 Triage Assessment: 13:15 General: Appears in no apparent distress. uncomfortable, Behavior is calm, cooperative, jl7 appropriate for age. Pain: Denies pain. Neuro: Level of Consciousness is awake, alert, obeys commands, Oriented to person, place. Cardiovascular: Patient's skin is warm and dry. Respiratory: Airway is patent Respiratory effort is even, unlabored, Respiratory pattern is regular, symmetrical. : Parent/caregiver report the patient having urinary frequency. Derm: Skin is pink, warm \\T\\ dry. Historical: - Allergies: 13:15 Bactrim; jl7 - Home Meds: 13:15 Aggrenox 25-200 mg Oral CM12 1 cap 2 times per day [Active]; Crestor 10 mg Oral tab 1 jl7 tab once daily [Active]; nortriptyline 25 mg Oral cap [Active]; metformin 850 mg Oral tab 1 tab 2 times per day [Active]; Januvia 100 mg Oral tab 1 tab once daily [Active]; metoprolol tartrate 25 mg Oral tab 1 tab 2 times per day [Active]; Myrbetriq 50 mg Oral Tb24 1 tab once daily [Active]; lisinopril 20 mg Oral tab 1 tab once daily [Active]; Prilosec 10 mg Oral cpDR [Active]; - PMHx: 13:15 carotid artery sx; Diabetes - NIDDM; Hernia; High Cholesterol; Hypertension; Kidney jl7 stones; left side impairment; stroke; 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 - Social history:: Smoking status: Patient denies any tobacco usage or history of. Screenin:50 Abuse screen: Denies threats or abuse. Nutritional screening: No deficits noted. jd3 Tuberculosis screening: No symptoms or risk factors identified. Fall Risk Ambulatory Aid- None/Bed Rest/Nurse Assist (0 pts). Gait- Normal/Bed Rest/Wheelchair (0 pts) Mental Status- Oriented to own ability (0 pts). Total Reeves Fall Scale indicates No Risk (0-24 pts). Assessment: 13:59 General: Appears in no apparent distress. comfortable, unkempt, Behavior is calm, jd3 cooperative, appropriate for age. Pain: Denies pain. Neuro: Level of Consciousness is awake, alert, obeys commands, confused, Oriented to person, place, pt appears at baseline. Cardiovascular: Capillary refill < 3 seconds Patient's skin is warm and dry. Respiratory: Airway is patent Respiratory effort is even, unlabored, Respiratory pattern is regular, symmetrical, Denies cough, shortness of breath. GI: No signs and/or symptoms were reported involving the gastrointestinal system. : Denies problem with system Parent/caregiver report the patient having pt's report pt with urinary frequency. EENT: No signs and/or symptoms were reported regarding the EENT system. Derm: Skin is intact, Skin is dry, Skin is normal, Skin temperature is warm. Musculoskeletal: No signs and/or symptoms reported regarding the musculoskeletal system. 15:29 Reassessment: Patient appears in no apparent distress at this time. No changes from jd3 previously documented assessment. Patient and/or family updated on plan of care and expected duration. Pain level reassessed. pt reports understanding of discharge instructions. awaiting family. will report discharge instructions to family as well on discharge. 16:11 Reassessment: Patient appears in no apparent distress at this time. Patient and/or jd3 family updated on plan of care and expected duration. Pain level reassessed. awaiting family for discharge. Vital Signs: 13:08 BP 137 / 68; Pulse 78; Resp 17; Temp 98.7; Pulse Ox 94% ; Weight 68.04 kg; Pain 0/10; jl7 14:52 BP 120 / 61; Pulse 79; Resp 17 S; Pulse Ox 95% on R/A; jd3 15:31 BP 127 / 61; Pulse 79; Resp 18 S; Pulse Ox 96% on R/A; Pain 0/10; jd3 16:11 Pulse 78; Resp 17 S; Pulse Ox 97% on R/A; jd3 ED Course: 12:42 Patient arrived in ED. ag5 12:43 Salma Grewal MD is Private Physician. ag5 13:14 Triage completed. jl7 13:15 Arm band placed on right wrist. Patient placed in waiting room, in a wheelchair, in jl7 view of staff members, Patient notified of wait time. 13:47 Regis Florence, RAQUEL is Primary Nurse. jd3 14:00 Antelmo Fernandes NP is PHCP. pm1 14:00 Shaun Tomlinson MD is Attending Physician. pm1 14:34 Inserted saline lock: 20 gauge in right antecubital area, using aseptic technique. jd3 Blood collected. 14:35 CBC with Diff Sent. jd3 14:35 CMP Sent. jd3 14:49 Straight cath inserted, using sterile technique, 16 Fr. Specimen obtained. Returned jd3 clear yellow urine. Patient tolerated well. 14:52 Patient has correct armband on for positive identification. Placed in gown. Bed in low jd3 position. Call light in reach. Side rails up X 1. Pulse ox on. NIBP on. 15:12 Salma Grewal MD is Referral Physician. pm1 16:30 No provider procedures requiring assistance completed. IV discontinued, intact, jd3 bleeding controlled, No redness/swelling at site. Pressure dressing applied. Administered Medications: 15:24 Drug: Rocephin 1 grams Route: IV; Rate: calculated rate; Site: right antecubital; jd3 16:31 Follow up: Response: No adverse reaction; IV Status: Completed infusion; IV Intake: [id number] Intake: 16:31 IV: 10ml; Total: 10ml. jd3 Outcome: 15:13 Discharge ordered by MD. pm1 16:24 Patient left the ED. jl7 16:30 Discharged to home via wheelchair, with family. jd3 16:30 Condition: stable 16:30 Discharge instructions given to patient, family, Instructed on discharge instructions, follow up and referral plans. medication usage, Demonstrated understanding of instructions, follow-up care, medications, Prescriptions given X 1. Signatures: Antelmo Fernandes NP CIVIL PREPAREDNESS TRAINING OFFICER pm1 Rona Talavera RN RN jl7 Regis Florence RN RN jd3 Lavon Parra ag5 Corrections: (The following items were deleted from the chart) 14:52 13:59 Neuro: Level of Consciousness is awake, alert, obeys commands, confused, Oriented jd3 to person, place, jd3 14:52 13:59 : Parent/caregiver report the patient having pt's report pt with urinary jd3 frequency jd3
[2020-03-24] MEDS ORDERED: CEFTRIAXONE/SWI 1gm 1 GM/10 ML SYR ONE (15:27)
[2020-03-24 17:10] LABS: Blood Morphology Comment NOT SEEN (NOT SEEN); Platelet Estimate ADEQ; Urine White Blood Cell Casts OK
== END 2020-03-24 16:24 | disposition home or self-care (01) ==
LOC: ER 12:41
DX: N39.0 Urinary tract infection, site not specified (principal); I10 Essential (primary) hypertension; E78.00 Pure hypercholesterolemia, unspecified; E11.9 Type 2 diabetes mellitus without complications; Z86.73 Personal history of transient ischemic attack (TIA), and cerebral infarction without residual deficits
CPT/HCPCS: 87088; 85025; 87086; 36415; 80053; J0696; 51702; 81003; 81015; 96365; 99284

== ENCOUNTER 2020-08-18 14:01 | Emergency (ER) | payer OTHER ==
--- NOTE | 2020-08-18 19:10 | ER ---
Nurse's Notes [facility] Name: Ruel Kumari Age: 80 yrs Sex: Male : 1940 Arrival Date: 08/18/2020 Time: 14:06 Bed 8 Private MD: Salma Grewal C Diagnosis: Urinary tract infection, site not specified Presentation: 08/18 14:16 Chief complaint: Patient states: Urinary frequency for a few days. His wrote that ll1 he gets frequent UTI's and responds well to Cipro. No pain or N/V/D. Coronavirus screen: Client denies travel out of the [place] in the last 14 days. At this time, the client does not indicate any symptoms associated with coronavirus-19. Ebola Screen: Patient denies travel to an Ebola-affected area in the 21 days before illness onset. Initial Sepsis Screen: Does the patient meet any 2 criteria? No. Patient's initial sepsis screen is negative. Does the patient have a suspected source of infection? Yes: Dysuria/Frequency/Urgency/UTI. Risk Assessment: Do you want to hurt yourself or someone else? Patient reports no desire to harm self or others. Onset of symptoms is unknown. 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 - Social history:: Smoking status: Patient denies any tobacco usage or history of. Screenin:45 Abuse screen: Denies threats or abuse. Nutritional screening: No deficits noted. em Tuberculosis screening: No symptoms or risk factors identified. Fall Risk None identified. Assessment: 15:50 General: Appears in no apparent distress. comfortable, Behavior is calm, cooperative, em appropriate for age, Denies fever. Pain: Denies pain. Neuro: Level of Consciousness is awake, alert, obeys commands, Oriented to person, place, time, situation, Appropriate for age. Cardiovascular: Capillary refill < 3 seconds Patient's skin is warm and dry. Respiratory: Airway is patent Respiratory effort is even, unlabored, Respiratory pattern is regular, symmetrical. : Reports inability to void, since 2 hours. Derm: Skin is intact, is healthy with good turgor, Skin is pink, warm \T\ dry. Musculoskeletal: Capillary refill < 3 seconds, Range of motion: intact in all extremities. 16:04 Reassessment: unable to void, bladder scan shows 0 mL, provider notified. em 17:17 Reassessment: pt reports he is unable to give UA at this time, provider notified, at em bedside. 18:38 Reassessment: Patient appears in no apparent distress at this time. pt unable to void em at this time, provider notified. 18:52 Reassessment: unable to void, bladder scan shows 201 mL, provider notified, received VO em for straight cath. Vital Signs: 14:16 BP 143 / 82; Pulse 75; Resp 16; Temp 97.1; Pulse Ox 94% on R/A; Weight 67.13 kg; Height ll1 5 ft. 6 in. (167.64 cm); Pain 0/10; 16:16 BP 138 / 76; Pulse 74; Resp 18; Pulse Ox 99% on R/A; em 18:50 BP 178 / 87; Pulse 78; Resp 18; Pulse Ox 99% on R/A; Pain 0/10; em 19:19 BP 166 / 87; Pulse 80; Resp 18; Temp 97.1; Pulse Ox 100% on R/A; mg2 14:16 Body Mass Index 23.89 (67.13 kg, 167.64 cm) ll1 ED Course: 14:06 Patient arrived in ED. rg4 14:06 Salma Grewal MD is Private Physician. rg4 14:17 Triage completed. ll1 14:17 Arm band placed on. ll1 15:26 Antelmo Fernandes NP is PHCP. pm1 15:26 Junior Hawk MD is Attending Physician. pm1 15:38 Blaze Leos, RAQUEL is Primary Nurse. em 15:45 Patient has correct armband on for positive identification. Adult w/ patient. em 19:05 Straight cath inserted, using sterile technique, 16 Fr. Specimen obtained. Returned em clear yellow urine. Patient tolerated well. 19:08 Urine Microscopic Only Sent. dh3 19:19 No provider procedures requiring assistance completed. Patient did not have IV access mg2 during this emergency room visit. Administered Medications: No medications were administered Outcome: 15:09 Discharge ordered by . kb 19:09 Discharge ordered by . pm1 19:19 Discharged to home ambulatory. mg2 19:19 Condition: stable 19:19 Discharge instructions given to patient, Instructed on discharge instructions, follow up and referral plans. medication usage, Demonstrated understanding of instructions, follow-up care, medications, Prescriptions given X 1. 19:20 Patient left the ED. mg2 Addendum: 08/21/2020 12:58 Addendum: Culture Results: Positive urine culture. No further action required. Bacteria s s sensitive to prescribed antibiotic. Signatures: Cinthia Miller, OUTPATIENT PROGRAM COORDINATOR-C OUTPATIENT PROGRAM COORDINATOR-Ckb Blaze Leos, RN RN em Sheyla Palomino RN RN ss Antelmo Fernandes, DAVY MANAGER FORMS pm1 Yeimy Lantigua 4 Vanesa Alarcon 3 Gume Guerrero RN RN mg2 John Quiles RN RN ll1
--- NOTE | 2020-08-18 19:10 | EDPHYS ---
Physician Documentation [facility] Name: Ruel Kumari Age: 80 yrs Sex: Male : 1940 Arrival Date: 08/18/2020 Time: 14:06 Bed 8 Private MD: Salma Grewal C ED Physician Junior Hawk HPI: 08/18 15:37 This 80 yrs old Male presents to ER via Ambulatory with complaints of Urinary pm1 Problem. 15:38 The patient presents with urinary symptoms, urinary frequency. Onset: The pm1 symptoms/episode began/occurred 2 day(s) ago. Modifying factors: The symptoms are alleviated by nothing, the symptoms are aggravated by nothing. Associated signs and symptoms: Pertinent negatives: abdominal pain, constipation, diarrhea, fever, nausea, vomiting, back pain. Severity of symptoms: in the emergency department the symptoms are unchanged. The patient has experienced similar episodes in the past, multiple times. 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 - Social history:: Smoking status: Patient denies any tobacco usage or history of. ROS: 15:38 Constitutional: Negative for fever, chills, and weight loss, Cardiovascular: Negative pm1 for chest pain, palpitations, and edema, Respiratory: Negative for shortness of breath, cough, wheezing, and pleuritic chest pain, Abdomen/GI: Negative for abdominal pain, nausea, vomiting, diarrhea, and constipation, Back: Negative for injury and pain. 15:38 MS/Extremity: Negative for injury and deformity. 15:38 : Positive for urinary frequency, Negative for flank pain, burning with urination. Exam: 15:38 Constitutional: This is a well developed, well nourished patient who is awake, alert, pm1 and in no acute distress. Head/Face: Normocephalic, atraumatic. 15:38 Back: No spinal tenderness. No costovertebral tenderness. Full range of motion. Skin: Warm, dry with normal turgor. Normal color with no rashes, no lesions, and no evidence of cellulitis. 15:38 Cardiovascular: Exam negative for acute changes, Rate: normal, Rhythm: regular, Pulses: no pulse deficits are appreciated. 15:38 Respiratory: Exam negative for acute changes, respiratory distress, shortness of breath. 15:38 Abdomen/GI: Inspection: abdomen appears normal, Palpation: abdomen is soft and non-tender. 15:38 Neuro: Exam negative for acute changes, Orientation: is normal, Mentation: is normal. Vital Signs: 14:16 BP 143 / 82; Pulse 75; Resp 16; Temp 97.1; Pulse Ox 94% on R/A; Weight 67.13 kg; Height ll1 5 ft. 6 in. (167.64 cm); Pain 0/10; 16:16 BP 138 / 76; Pulse 74; Resp 18; Pulse Ox 99% on R/A; em 18:50 BP 178 / 87; Pulse 78; Resp 18; Pulse Ox 99% on R/A; Pain 0/10; em 19:19 BP 166 / 87; Pulse 80; Resp 18; Temp 97.1; Pulse Ox 100% on R/A; mg2 14:16 Body Mass Index 23.89 (67.13 kg, 167.64 cm) ll1 MDM: 15:09 Patient medically screened. kb 15:37 Data reviewed: vital signs. pm1 19:07 ED course: Patient with complaints of urinary frequency. He wanted to provide a urine pm1 sample and leave with a prescription for cipro. Patient with difficulty providing a urine sample and did not want catherization initially which explains the long duration of his ER visit. 19:09 Counseling: I had a detailed discussion with the patient and/or guardian regarding: the pm1 historical points, exam findings, and any diagnostic results supporting the discharge/admit diagnosis, lab results, the need for outpatient follow up, to return to the emergency department if symptoms worsen or persist or if there are any questions or concerns that arise at home. 08/18 14:20 Order name: Urine Microscopic Only kb 08/18 19:15 Order name: Urine Dipstick--Ancillary (enter results) eb 08/18 14:20 Order name: Urine Dipstick-Ancillary (obtain specimen); Complete Time: 19:07 kb 08/18 19:07 Order name: Straight Cath; Complete Time: 19:08 em Administered Medications: No medications were administered Disposition: 08/18/20 19:09 Discharged to Home. Impression: Urinary tract infection, site not specified. - Condition is Stable. - Discharge Instructions: Urinary Tract Infection, Adult. - Prescriptions for Cipro 500 mg Oral Tablet - take 1 tablet by ORAL route every 12 hours for 7 days; 14 tablet. - Medication Reconciliation Form, Thank You Letter, Antibiotic Education, Prescription Opioid Use form. - Follow up: Emergency Department; When: As needed; Reason: Worsening of condition. Follow up: Private Physician; When: 2 - 3 days; Reason: Recheck today's complaints, Continuance of care, Re-evaluation by your physician. - Problem is new. - Symptoms have improved. Addendum: 08/19/2020 20:10 Co-signature as Attending Physician, Junior Hawk MD. m a2 Signatures: Dispatcher [employer] EDCinthia Acuna, SWAPNA-C ACCOUNTING MANAGER-Blaze Garcia, RN RN em Antelmo Fernandes, DAVY SOCIAL WORK ASSISTANT pm1 Junior Hawk MD MD ma2 Gume Guerrero RN RN mg2 John Quiles RN RN ll1 Corrections: (The following items were deleted from the chart) 08/18 15:09 15:09 08/18/2020 15:09 Discharged to Home. Impression: Synovial cyst of popliteal space kb [Nick], left knee. Condition is Stable. Forms are Medication Reconciliation Form, Thank You Letter, Antibiotic Education, Prescription Opioid Use. Follow up: Emergency Department; When: As needed; Reason: Worsening of condition. Follow up: Private Physician; When: 2 - 3 days; Reason: Recheck today's complaints, Continuance of care, Re-evaluation by your physician. kb 19:20 19:09 08/18/2020 19:09 Discharged to Home. Impression: Urinary tract infection, site mg2 not specified. Condition is Stable. Discharge Instructions: Urinary Tract Infection, Adult. Prescriptions for Cipro 500 mg Oral Tablet - take 1 tablet by ORAL route every 12 hours for 7 days; 14 tablet. and Forms are Medication Reconciliation Form, Thank You Letter, Antibiotic Education, Prescription Opioid Use. Follow up: Emergency Department; When: As needed; Reason: Worsening of condition. Follow up: Private Physician; When: 2 - 3 days; Reason: Recheck today's complaints, Continuance of care, Re-evaluation by your physician. Problem is new. Symptoms have improved. pm1
[2020-08-18 19:21] LABS: Urine Blood TRACE (NEG); Urine Glucose NEGATIVE (NEG); Urine Protein NEGATIVE (NEG)
[2020-08-18 19:27] VITALS: TEMP 97.1
[2020-08-18 19:31] LABS: Urine Bacteria 20-50 /HPF (NONE SEEN); Urine RBC <5 /HPF (NONE SEEN)
[2020-08-18 19:32] VITALS: BP 166/87; O2SAT 100
== END 2020-08-18 19:20 | disposition home or self-care (01) ==
LOC: ER 14:01
DX: N39.0 Urinary tract infection, site not specified (principal); I10 Essential (primary) hypertension; Z86.73 Personal history of transient ischemic attack (TIA), and cerebral infarction without residual deficits; Z88.1 Allergy status to other antibiotic agents
CPT/HCPCS: 51702; 81003; 81015; 87077; 87086; 87088; 87186; 99283

== ENCOUNTER 2021-02-15 15:07 | Emergency (ER) | payer OTHER ==
--- NOTE | 2021-02-15 16:19 | RAD REPORT ---
EXAM DESCRIPTION: RAD - Chest Single View - 02/15/2021 4:06 pm CLINICAL HISTORY: possible covid COMPARISON: Chest Single View dated 09/04/2018; Chest Single View dated 07/28/2016; Chest Single View dated 06/23/2016; CHEST PA AND LAT 2 VIEW dated 10/09/2015 FINDINGS: No evidence of edema or pneumonia. Several calcified nodules are present in the left lung. The heart size is within normal limits.No acute osseous abnormality. No significant pleural effusio ns or pneumothorax. Sternotomy. IMPRESSION: No acute cardiopulmonary disease.
[2021-02-15 16:37] LABS: Absolute Lymphocytes (CBC) 1.1 K/uL (0.7-4.9); Basophils % 0.7 % (0-1.3); Lymphocytes % 16.7 % (15.3-44.8); MPV 10.1 fL (7.6-11.3); RBC Red Blood Cell Count 4.49 M/uL (4.33-5.43)
[2021-02-15 17:00] LABS: Potassium 3.9 mmol/L (3.5-5.1)
[2021-02-15] MEDS ORDERED: METHYLPREDNISOLONE 125 MG INJ ONE (18:37)
[2021-02-15] MEDS ORDERED: NA CHLORIDE 0.9% 500 ML ONE (18:37)
--- NOTE | 2021-02-15 19:37 | RAD REPORT ---
EXAM DESCRIPTION: CT - Thorax Wo Con - 02/15/2021 7:25 pm CLINICAL HISTORY: COVID COMPARISON: Chest Single View dated 02/15/2021 FINDINGS: There are some scattered wedge-shaped ground-glass opacities in the right lung, most focal ly within the medial aspect of the right lower lobe. . The left lung is clear. No edema is identified . Sternotomy. Multivessel coronary artery disease. Small moderate hiatal hernia. Cardiomegaly. Puncta te nonobstructing stone left kidney. Sternotomy. No acute fractures are identified. IMPRESSION: Scattered nonspecific ground-glass opacities in the right lung could reflect pneumonia, including Covid-19 though it is typically bilateral. No pulmonary edema or other acute findings iden tified.
[2021-02-15 20:18] LABS: Urine Blood Negative (Negative); Urine Glucose Negative (Negative); Urine Protein Negative (Negative); Urine pH 5.5 (5.0-7.0)
[2021-02-15] MEDS ORDERED: LIDOCAINE VISCOUS 2% SOLN 15 ML UDC ONE (20:23)
--- NOTE | 2021-02-15 21:10 | RAD REPORT ---
EXAM DESCRIPTION: CT - Head Brain Wo Cont - 02/15/2021 9:00 pm CLINICAL HISTORY: CONFUSED COMPARISON: Abdomen Pelvis W Contrast dated 12/23/2020; Abdomen Pelvis W Contrast dated 12/12/2020 ; Abdomen Pelvis W Contrast dated 10/05/2020; Abdomen Pelvis W Contrast dated 09/22/2020Head Brain W o Cont dated 07/28/2016; HEAD BRAIN W O CONTRAST dated 02/13/2015 FINDINGS: No acute intracranial hemorrhage. Sequela of remote basal ganglia and chou radiata infar cts which are predominantly on the right side. No acute large vascular territory infarct identified. No hemorrhage is seen. No mass effect or midline shift. No hydrocephalus. No mastoid effusion. Parana tahir sinuses are well aerated. IMPRESSION: No acute intracranial abnormality. Remote infarcts.
[2021-02-15 21:11] LABS: Protime INR 0.97
[2021-02-15] MEDS ORDERED: CEFTRIAXONE/SWI 1gm 1 GM/10 ML SYR ONE (21:15)
[2021-02-15] MEDS ORDERED: AZITHROMYCIN 500 MG INJ IVPB ONE (21:15)
[2021-02-15] MEDS ORDERED: NA CHLORIDE 0.9% 250 ML ONE (21:15)
[2021-02-15 21:16] LABS: Urine Bacteria >50 /HPF (NONE SEEN); Urine RBC <5 /HPF (NONE SEEN)
[2021-02-15 21:20] LABS: ALT/SGPT 33 U/L (12-78); AST/SGOT 27 U/L (15-37); Albumin 3.1 g/dL (3.4-5.0); Alkaline Phosphatase 38 U/L (45-117); Bilirubin Direct 0.1 mg/dL (0-0.2); Bilirubin Total 0.3 mg/dL (0.2-1.0); Protein, Total 6.9 g/dL (6.4-8.2); Troponin (Emerg Dept Use Only) < 0.02 ng/mL (0.0-0.045)
--- NOTE | 2021-02-16 00:24 | ER ---
Nurse's Notes [facility] Name: Ruel Kumari Age: 80 yrs Sex: Male : 1940 Arrival Date: 02/15/2021 Time: 15:11 Bed 6 Private MD: Salma Grewal C Diagnosis: COVID, Pneumonia, Confusion Presentation: 02/15 15:27 Chief complaint: Patient states: Lethargic, no appetite, confusion for 3 days. No ll1 fever. History of UTI's. tested positive for covid this past week. Coronavirus screen: Client denies travel out of the [place] in the last 14 days. At this time, the client does not indicate any symptoms associated with coronavirus-19. Ebola Screen: Patient denies travel to an Ebola-affected area in the 21 days before illness onset. Initial Sepsis Screen: Does the patient meet any 2 criteria? No. Patient's initial sepsis screen is negative. Does the patient have a suspected source of infection? No. Patient's initial sepsis screen is negative. Risk Assessment: Do you want to hurt yourself or someone else? Patient reports no desire to harm self or others. Onset of symptoms was February 13, 2021. 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 Flu vaccine is not up to date. - Social history:: Smoking status: Patient denies any tobacco usage or history of. - Family history:: not pertinent. - Hospitalizations: : No recent hospitalization is reported. Screenin:33 Abuse screen: Denies threats or abuse. Denies injuries from another. Nutritional hb screening: No deficits noted. Tuberculosis screening: No symptoms or risk factors identified. Fall Risk Total Reeves Fall Scale indicates Low Risk Score (25-44 pts). Fall prevention measures have been instituted. Side Rails Up X 2 Frequent Obs/Assesments occuring As available Patient and Family Educated on Fall Prevention Program and strategies. Assessment: 16:00 General: Appears in no apparent distress. Behavior is calm, cooperative. Pain: Denies hb pain. Neuro: Level of Consciousness is confused, lethargic, Oriented to person, place. Cardiovascular: Patient's skin is warm and dry. Respiratory: Respiratory effort is even, unlabored, Respiratory pattern is regular, symmetrical. GI: No signs and/or symptoms were reported involving the gastrointestinal system. : No signs and/or symptoms were reported regarding the genitourinary system. EENT: No signs and/or symptoms were reported regarding the EENT system. Derm: Skin is pink, warm \T\ dry. Musculoskeletal: No signs and/or symptoms reported regarding the musculoskeletal system. 17:27 Reassessment: Patient appears in no apparent distress at this time. No changes from hb previously documented assessment. Patient and/or family updated on plan of care and expected duration. Pain level reassessed. 18:34 Reassessment: Patient appears in no apparent distress at this time. No changes from hb previously documented assessment. Patient and/or family updated on plan of care and expected duration. Pain level reassessed. 19:23 Reassessment: wheeled to CT. em 20:00 Reassessment: Patient appears in no apparent distress at this time. No changes from em previously documented assessment. Patient and/or family updated on plan of care and expected duration. Pain level reassessed. Patient states feeling better. 22:37 Reassessment: Patient appears in no apparent distress at this time. No changes from em previously documented assessment. Patient is alert, oriented x 3, equal unlabored respirations, skin warm/dry/pink. 23:59 Reassessment: pending acceptance from a facility that will take covid pts, none em available at this time. 02/16 01:13 Reassessment: report given to RAQUEL Coats at [facility], pending EMS transportation. em 02:50 Reassessment: report given to [facility]. em Vital Signs: 02/15 15:27 BP 129 / 62; Pulse 73; Resp 17; Temp 97.4; Pulse Ox 95% on R/A; Weight 65.77 kg; Height ll1 5 ft. 9 in. (175.26 cm); Pain 0/10; 17:28 BP 133 / 83; Pulse 75; Resp 17; Pulse Ox 100% on R/A; tw2 18:35 BP 139 / 64; Pulse 74; Resp 15; Pulse Ox 97% on R/A; hb 21:12 BP 137 / 73; Pulse 78; Resp 18; Pulse Ox 100% on R/A; em 22:37 BP 111 / 57; Pulse 77; Resp 16; Pulse Ox 96% on R/A; em 02/16 00:01 BP 131 / 67; Pulse 76; Resp 16; Pulse Ox 96% on R/A; em 02/15 15:27 Body Mass Index 21.41 (65.77 kg, 175.26 cm) ll1 ED Course: 02/15 15:11 Patient arrived in ED. ds1 15:11 Salma Grewal MD is Private Physician. ds1 15:13 Bed in low position. Call light in reach. route jumper on. Pulse ox on. NIBP on. tw2 15:20 Janine Tariq, RN is Primary Nurse. hb 15:25 Shiv Martinez MD is Attending Physician. rn 15:29 Triage completed. ll1 15:29 Arm band placed on Patient placed in an exam room, on a stretcher. ll1 16:06 XRAY Chest (1 view) In Process Unspecified. EDMS 16:18 Inserted saline lock: 20 gauge in right antecubital area, using aseptic technique. dh4 Blood collected. 19:02 Attending Physician role handed off by Shiv Martinez MD 7 19:02 Román Duffy MD is Attending Physician. mh7 19:25 CT Chest Wo Con In Process Unspecified. EDMS 20:10 Straight cath inserted, using sterile technique, 16 Fr. Specimen obtained. Returned em clear yellow urine. Patient tolerated well. 20:50 EKG done, by ED staff, reviewed by Román Duffy MD. em 21:01 CT Head Brain wo Cont In Process Unspecified. EDMS 23:49 Initiated transfer at [facility] with Susanna Iglesias. tt3 02/16 00:06 Call was connected with Dr. Duffy for consultation. tt3 00:11 Susanna Iglesias gave admin approval. The accepting physician is Dr. Charles. The pt is tt3 going to [facility]. Nurse to call report to . Face sheet and MOT to be faxed to per Susanna's request. 00:25 No provider procedures requiring assistance completed. em 02:59 Patient transferred, IV remains in place. em Administered Medications: 02/15 16:32 Drug: NS 0.9% 500 ml Route: IV; Rate: bolus; Site: right antecubital; hb 20:26 Follow up: IV Status: Completed infusion; IV Intake: 500ml em 18:35 Drug: SOLU-Medrol (methylPrednisoLONE) 125 mg Route: IVP; Site: left antecubital; hb 20:26 Follow up: Response: No adverse reaction em 18:36 Drug: NS 0.9% 500 ml Route: IV; Rate: bolus; Site: left antecubital; hb 20:26 Follow up: IV Status: Completed infusion; IV Intake: 500ml em 21:40 Drug: Rocephin (cefTRIAXone) 1 grams Route: IV; Rate: per protocol; Site: right em antecubital; 22:52 Follow up: Response: No adverse reaction; IV Status: Completed infusion; IV Intake: 10mlem 21:42 Drug: Zithromax (azithromycin) 500 mg Route: IVPB; Infused Over: 1 hrs; Site: right em antecubital; 22:53 Follow up: Response: No adverse reaction; IV Status: Completed infusion; IV Intake: em 250ml 02/16 00:29 Not Given (Physician Discretion): Ivermectin 12 mg PO once; as a single dose em Intake: 02/15 20:26 IV: 500ml; Total: 500ml. em 20:26 IV: 500ml; Total: 1000ml. em 22:52 IV: 10ml; Total: 1010ml. em 22:53 IV: 250ml; Total: 1260ml. em Outcome: 02/16 00:24 ER care complete, transfer ordered by mhElliot 02:58 Transferred by ground EMS Transfer form completed. X-rays sent w/ patient. Note: [facility] jessica Wesley 02:58 Condition: stable 02:58 Instructed on the need for admit, Demonstrated understanding of instructions. 03:00 Patient left the ED. em Addendum: 02/19/2021 08:55 Addendum: Culture Results: Positive urine culture. Phone call Attempt #1 Faxed culture s s report to [facility]. Signatures: Dispatcher [employer] EDBlaze Edwards RN RN Pilar Dempsey ds1 Shiv Martinez MD MD rn Smirch, Shelby, RN RN ss Baxter, Heather, RN RN Gely Torres RN RN 2 James Driver [facility] John Quiles RN RN 1 Román Duffy MD MD mh7 Kenton Garnett tt3 Corrections: (The following items were deleted from the chart) 02/16 00:14 02/15 23:49 Initiated transfer at [facility] with tt3 tt3 02/16 00:25 02/15 20:50 EKG done, by ED staff, reviewed by Janine Tariq RN em
--- NOTE | 2021-02-16 00:24 | EDPHYS ---
Physician Documentation [facility] Name: Ruel Kumari Age: 80 yrs Sex: Male : 1940 Arrival Date: 02/15/2021 Time: 15:11 Bed 6 Private MD: Salma Grewal C ED Physician Román Duffy HPI: 02/15 15:34 This 80 yrs old Male presents to ER via Wheelchair with complaints of rn Confusion, Lethargic. 15:34 The patient presents with confusion, disorientation. Onset: The symptoms/episode rn began/occurred 3 day(s) ago. Possible causes: unknown. Associated signs and symptoms: Pertinent positives: confusion, fatigue, Pertinent negatives: abdominal pain, chest pain, diarrhea, headache, seizure, vomiting. Current symptoms: In the emergency department the patient's symptoms are unchanged from the initial presentation. The patient has experienced similar episodes in the past. The patient has not recently seen a physician. Family reports confusion and weakness for 3 days or so, tested + for COVID today, patient reports fatigue, generalized weakness, decreased appetite. No chest or abdominal pain. No vomiting/diarrhea. No sob.. 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 Flu vaccine is not up to date. - Social history:: Smoking status: Patient denies any tobacco usage or history of. - Family history:: not pertinent. - Hospitalizations: : No recent hospitalization is reported. ROS: 15:34 Constitutional: Negative for fever, chills, and weight loss, Eyes: Negative for injury, rn pain, redness, and discharge, ENT: Negative for injury, pain, and discharge, Neck: Negative for injury, pain, and swelling, Cardiovascular: Negative for chest pain, palpitations, and edema, Respiratory: Negative for shortness of breath, cough, wheezing, and pleuritic chest pain, Abdomen/GI: Negative for abdominal pain, nausea, vomiting, diarrhea, and constipation, Back: Negative for injury and pain, MS/Extremity: Negative for injury and deformity, Skin: Negative for injury, rash, and discoloration, Neuro: Negative for headache, numbness, tingling, and seizure. Exam: 15:34 Constitutional: This is a well developed, well nourished patient who is awake, alert, rn and in no acute distress. Head/Face: Normocephalic, atraumatic. Eyes: Periorbital areas with no swelling, redness, or edema. ENT: Dry MM, no stridor Cardiovascular: Regular rate and rhythm. No pulse deficits. Respiratory: No increased work of breathing, no retractions or nasal flaring. Abdomen/GI: Soft, non-tender Skin: Warm, dry MS/ Extremity: Pulses equal, no cyanosis Neuro: Awake and alert, GCS 15, oriented to person, place. Vital Signs: 15:27 BP 129 / 62; Pulse 73; Resp 17; Temp 97.4; Pulse Ox 95% on R/A; Weight 65.77 kg; Height ll1 5 ft. 9 in. (175.26 cm); Pain 0/10; 17:28 BP 133 / 83; Pulse 75; Resp 17; Pulse Ox 100% on R/A; tw2 18:35 BP 139 / 64; Pulse 74; Resp 15; Pulse Ox 97% on R/A; hb 21:12 BP 137 / 73; Pulse 78; Resp 18; Pulse Ox 100% on R/A; em 22:37 BP 111 / 57; Pulse 77; Resp 16; Pulse Ox 96% on R/A; em 02/16 00:01 BP 131 / 67; Pulse 76; Resp 16; Pulse Ox 96% on R/A; em 02/15 15:27 Body Mass Index 21.41 (65.77 kg, 175.26 cm) ll1 MDM: 02/15 15:25 Patient medically screened. rn 18:24 Differential Diagnosis: electrolyte abnormality, hypoglycemia, pneumonia, sepsis, UTI, rn volume depletion, COVID. Data reviewed: vital signs, nurses notes, lab test result(s), radiologic studies, plain films, and as a result, I will admit patient. Counseling: I had a detailed discussion with the patient and/or guardian regarding: the historical points, exam findings, and any diagnostic results supporting the discharge/admit diagnosis, lab results, radiology results, the need for further work-up and treatment in the hospital. Response to treatment: There is no appreciated change of the patient's symptoms at this time, and as a result, I will admit patient. Admission orders: after a detailed discussion of the patient's condition and case, the admit orders are written by me. ED course: Pt reevaluated, COVID +, + mild dehydration, more lethargic than when came in, family states altered, will admit for COVID and delirium/dehydration.. 18:34 ED course: Consulted with Dr. Grewal, states believes has current UTI, to give rocephin rn if UA shows UTI, requests CT chest to see if infiltrate, and if needs admission to consult with household appliance mechanic if need for transfer. . 02/15 15:32 Order name: CBC with Diff; Complete Time: 16:46 02/15 15:32 Order name: Basic Metabolic Panel; Complete Time: 17:32 02/15 15:32 Order name: Urine Culture 02/15 15:32 Order name: Urine Microscopic Only; Complete Time: 21:19 02/15 15:32 Order name: Procalcitonin; Complete Time: 18:14 02/15 15:32 Order name: Blood Culture Adult (2) 02/15 15:32 Order name: Lactate; Complete Time: 17:32 02/15 17:32 Order name: SARS-COV-2 RT PCR; Complete Time: 17:32 [facility] 02/15 20:15 Order name: Lactate Sepsis 2 HR Follow-up; Complete Time: 20:18 [facility] 02/15 20:18 Order name: Urine Dipstick-Ancillary; Complete Time: 20:19 [facility] 02/15 20:20 Order name: LFT's; Complete Time: 21:21 [facility] 02/15 20:20 Order name: Protime (+inr); Complete Time: 21:21 [facility] 02/15 20:20 Order name: Ptt, Activated; Complete Time: 21:21 [facility] 02/15 15:32 Order name: IV Start; Complete Time: 16:18 02/15 15:32 Order name: Urine Dipstick-Ancillary (obtain specimen); Complete Time: 20:26 02/15 15:32 Order name: XRAY Chest (1 view); Complete Time: 16:46 02/15 18:35 Order name: CT Chest Wo Con; Complete Time: 19:59 rn 02/15 20:19 Order name: CT Head Brain wo Cont; Complete Time: 21:11 [facility] 02/15 20:20 Order name: Troponin (emerg Dept Use Only); Complete Time: 21:21 [facility] 02/15 20:20 Order name: EKG - Nurse/Tech; Complete Time: 20:50 [facility] 02/15 20:21 Order name: Cath; Complete Time: 20:21 em Administered Medications: 16:32 Drug: NS 0.9% 500 ml Route: IV; Rate: bolus; Site: right antecubital; hb 20:26 Follow up: IV Status: Completed infusion; IV Intake: 500ml em 18:35 Drug: SOLU-Medrol (methylPrednisoLONE) 125 mg Route: IVP; Site: left antecubital; hb 20:26 Follow up: Response: No adverse reaction em 18:36 Drug: NS 0.9% 500 ml Route: IV; Rate: bolus; Site: left antecubital; hb 20:26 Follow up: IV Status: Completed infusion; IV Intake: 500ml em 21:40 Drug: Rocephin (cefTRIAXone) 1 grams Route: IV; Rate: per protocol; Site: right em antecubital; 22:52 Follow up: Response: No adverse reaction; IV Status: Completed infusion; IV Intake: 10mlem 21:42 Drug: Zithromax (azithromycin) 500 mg Route: IVPB; Infused Over: 1 hrs; Site: right em antecubital; 22:53 Follow up: Response: No adverse reaction; IV Status: Completed infusion; IV Intake: em 250ml 02/16 00:29 Not Given (Physician Discretion): Ivermectin 12 mg PO once; as a single dose em Disposition Summary: 02/16/21 00:24 Transfer Ordered Transfer Location: Other Acute Care Facility [facility] Reason: Higher level of care [facility] Condition: Stable mh Problem: new mh7 Symptoms: have improved mh7 Accepting Physician: Dr. Charles(02/16/21 03:00) em Diagnosis - COVID, Pneumonia, Confusion mh7 Discharge Instructions: - Discharge Summary Sheet rn - COVID-19 rn - 10 Things You Can Do to Manage Your COVID-19 Symptoms at Home - [facility] [place] rn Forms: - Medication Reconciliation Form 7 - SBAR form mh7 Prescriptions: - Prednisone 20 mg Oral Tablet - take 1 tablet by ORAL route as directed for 14 days Take 2 tablets by mouth rn daily for 7 days, followed by 1 tablet by mouth daily for 7 days, total of 14 days.; 21 tablet; Refills: 0, Product Selection Permitted Signatures: Dispatcher [employer] [facility] Blaze Leos RN RN em Nieto, Roman, MD MD rn Baxter, Heather, RN RN John Quiles RN RN [facility] Román Duffy MD MD 7 Corrections: (The following items were deleted from the chart) 02/15 16:42 15:33 CORONAVIRUS+MR.LAB.BRZ ordered. [facility] 18:29 15:34 Constitutional: This is a well developed, well nourished patient who is awake, rn alert, and in no acute distress. Head/Face: Normocephalic, atraumatic. Eyes: Periorbital areas with no swelling, redness, or edema. ENT: Dry MM, no stridor Cardiovascular: Regular rate and rhythm. No pulse deficits. Respiratory: No increased work of breathing, no retractions or nasal flaring. Abdomen/GI: Soft, non-tender Skin: Warm, dry MS/ Extremity: Pulses equal, no cyanosis Neuro: Awake and alert, GCS 15, oriented to person, place. Cranial nerves II-XII grossly intact. Motor strength 4/5 in all extremities. Sensory grossly intact. Cerebellar exam normal. rn 02/16 03:00 00:24 Dr. Charles mh7
[2021-02-16 03:30] VITALS: TEMP 98.7
[2021-02-16 03:37] VITALS: BP 107/63; O2SAT 96
== END 2021-02-16 03:00 ==
LOC: ER 15:07
DX: U07.1 COVID-19 (principal); J12.82 Pneumonia due to coronavirus disease 2019; I10 Essential (primary) hypertension; Z88.1 Allergy status to other antibiotic agents; Z95.1 Presence of aortocoronary bypass graft
CPT/HCPCS: 96365; 96361; 93005; 87040 ×2; 87088; 85025; 87086; 80048; 36415; 85610; 80076; 83605 ×2; 85730; 87077; 87186; 84484; 84145; 70450; 71250; 71045; 51702; 96375; 99285; U0003; J0456; J0696; J7050; J7040; J2930; 81003; 81015

== ENCOUNTER 2021-02-21 08:48 | Inpatient (IN) | payer OTHER ==
--- NOTE | 2021-02-27 16:34 | R.PREADM ---
PRE-ADMISSION SCREENING FORM SCREENING DATE AND TIME 02/27/2021 13:54 (CDT) ANTICIPATED REHAB ADMISSION DATE 03/01/2021 REFERRING FACILITY [facility] REFERRAL DATE AND TIME 02/20/2021 13:54 (CDT) REFERRAL ROOM# 521T ACUTE ADMIT DATE 02/28/2021 Previous Rehabilitation(s): No. 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 CLINICAL LIAISON Maddison Burroughs PHYSICIAN REVIEWER Dr. Jamaal Madrigal M.D. MR# [id number] NAME SIMON BRANDT ADDRESS [address] [address] [facility] [id number] DATE OF 1940 AGE 81 SSN# [id number] GENDER male MARITAL STATUS ADMIT FROM 02 - [facility] PRE-HOSPITAL LIVING SETTING 01 - Home (private home/apt. board/care, assisted living, chcf, transitional living) HOME TYPE AND DETAILS Type of home: single family house # of levels in the residence: 1 # of steps within the residence: 0 # of steps to enter the residence: 0 PRE-HOSPITAL LIVING WITH Family/Relatives FAMILY SUPPORT Yes PRIMARY FAMILY CONTACT NAME FILEMON BRANDT PRIMARY FAMILY CONTACT PHONE PRIMARY FAMILY CONTACT RELATIONSHIP Spouse PHONE PRIMARY FAMILY CONTACT ON ADM.? no IS PRIMARY FAMILY CONTACT AUTH. REP.? no 1ST EMERGENCY CONTACT FILEMON BRANDT 1ST CONTACT PHONE 1ST CONTACT RELATIONSHIP Spouse PHONE 1ST CONTACT ON ADM. no IS 1ST CONTACT AUTH. REP.? no PHONE 2ND CONTACT ON ADM.? no PATIENT EMPLOYMENT STATUS Retired (for age) PATIENT EMPLOYER No Employer PAYOR INFORMATION: 1ST PAYOR NAME Jose 1ST PAYOR PHONE [phone] 1ST PAYOR INJURY/ILLNESS DUE TO ACCIDENT? No ANOTHER [employer] PARTY RESPONSIBLE? No PRIMARY REHAB/ACUTE DIAGNOSIS: POST COVID-19 ONSET DATE 02/16/2021 REHAB IMPAIRMENT CATEGORY (UYEN): 15 Pulmonary does NOT meet 60% rule PRIMARY DIAGNOSIS-RELATED SURGERIES: N/A COMORBID REHAB/ACUTE DIAGNOSES: - Non-Tiered COVID-19 (U07.1) WEAKNESS AMS SUMMARY OF ACUTE HOSPITALIZATION: Pt. is a 81 yo Right-handed male. On 02/16/2021 he was admitted to [facility] with diagnosis POST COVID-19. His impairment category is Pulmonary Disorders 10 - Other Pulmonary Disorders (10.9). Pre-morbidly, Pt. was independent/mod-I in Safety Awareness, Balance, Communication, and Self-Care; a nd he had good Endurance, Self-Care, Sphincter Control, and Transfers Control. Currently, he has deficits of Locomotion, Safety Awareness, Transfers Control, Self-Care, Communicati on, and Balance. Pt. is now referred to [facility] for acute in-patient rehabilitation in order to maximize patient's functional independence in activities of daily living, strength, ROM, and mobi lity. Patient has realistic goal of being discharged at assistance level 7-Ind to reside at Home with Fami ly/Relatives. PAST MEDICAL HISTORY AMS COVID-19 (U07.1) WEAKNESS HISTORY OF CVA ( LEFT SIDE) HISTORY OF CORONARY DISEASE HYPERLIPIDEMIA MEDICATION ALLERGIES: No Known Drug Allergies (NKDA) ENVIRONMENTAL ALLERGIES: - Substance Allergies None Known - Other Allergies None Known CODE STATUS: Full code WEIGHT/HEIGHT/BMI: WEIGHT 142 lbs BMI N/A DIET: - Diet Type Regular - Diet - Solid Texture Regular - Diet - Liquid Texture Regular - Tube Feed N/A REVIEW OF SYSTEMS: - Gen Alert and awake Lying in bed No apparent distress Oriented to: person, time, and place - Vital Signs Temperature: 94.5 F SBP/DBP: 133/75 Pulse: 65 Resp: 18 Vital signs stable, afebrile - CVS RRR VITAL SIGNS Temperature: 94.5 F SBP/DBP: 133/75 Pulse: 65 Resp: 18 Vital signs stable, afebrile MEDICATIONS/TREATMENT: Other- See attached MAR (Medication Administration Record). CURRENT SPHINCTER CONTROL: Pre-hospital bladder status: unspecified # of bladder accidents in the last 7 days prior to screenin Pre-hospital bowel status: unspecified # of bowel accidents in the last 7 days prior to screenin Last Bowel Movement Date: 02/27/2021 CURRENT LOCOMOTION STATUS: distance walked 35 feet with rolling walker DETAILED CURRENT FUNCTIONAL STATUS: - Bladder accident frequency: 7-Ind - No accidents in the past 7 days - Bowel accident frequency: 7-Ind - No accidents in the past 7 days - Walking score based on distance walked: 0(N/A) - Wheelchair score based on distance traveled: 0(N/A) QI SCORES: - Self-Care A. Eating 03-Partial/moderate assistance B. Oral hygiene 03-Partial/moderate assistance C. Toileting hygiene 03-Partial/moderate assistance E. Shower/bathe self 02-Substantial/maximal assistance F. Upper body dressing 03-Partial/moderate assistance G. Lower body dressing 02-Substantial/maximal assistance H. Putting on/taking off footwear 88-Not attempted due to medical condition or safety concerns - Mobility A. Roll left and right 03-Partial/moderate assistance B. Sit to lying 03-Partial/moderate assistance C. Lying to sitting on side of bed 03-Partial/moderate assistance D. Sit to stand 03-Partial/moderate assistance E. Chair/[id number] transfer 03-Partial/moderate assistance F. Toilet transfer 02-Substantial/maximal assistance G. Car transfer 88-Not attempted due to medical condition or safety concerns I. Walk 10 feet 02-Substantial/maximal assistance J. Walk 50 feet with two turns 88-Not attempted due to medical condition or safety concerns K. Walk 150 feet 88-Not attempted due to medical condition or safety concerns L. Walking 10 feet on uneven surfaces 88-Not attempted due to medical condition or safety concerns M. 1 step (curb) 88-Not attempted due to medical condition or safety concerns N. 4 steps 88-Not attempted due to medical condition or safety concerns O. 12 steps 88-Not attempted due to medical condition or safety concerns P. Picking up object 88-Not attempted due to medical condition or safety concerns R. Wheel 50 feet with two turns 88-Not attempted due to medical condition or safety concerns S. Wheel 150 feet 88-Not attempted due to medical condition or safety concerns - Bladder and Bowel Bladder continence Bowel continence - Endurance Fair - Balance Fair - Safety Awareness Fair CURRENT FUNC. DEFICITS: Self-Care, Mobility, Endurance, Balance, and Safety Awareness CURRENT / PREVIOUS ASSISTIVE DEVICES: Rolling Walker HISTORY OF FALLS. HAS THE PATIENT HAD TWO OR MORE FALLS IN THE PAST YEAR OR ANY FALL WITH INJURY IN T HE PAST YEAR?: No PRIOR SURGERY. DID THE PATIENT HAVE MAJOR SURGERY DURING THE 100 DAYS PRIOR TO ADMISSION?: No THERAPY NOTES FROM ACUTE CARE: Attached. SPECIAL NEEDS: - Safety Concerns Skin breakdown precautions needed due to skin breakdown risk PATIENT NEEDS ACTIVE AND ONGOING THERAPEUTIC INTERVENTION OF MULTIPLE THERAPY DISCIPLINES, INCLUDING: - Dietary and Nutrition Adequate Nutrition. Nutritional Education. Nutritional Supplements. PATIENT NEEDS CLOSE MEDICAL SUPERVISION BY A REHABILITATION PHYSICIAN FOR: Coordination of Treatment Team Medical and Co-Morbidity Management PATIENT REQUIRES 24X7 REHAB NURSING FOR MEDICAL AND FUNCTIONAL MGT. OF THE FOLLOWING DEFICITS: Disease Management Medication Management Patient/Family Education Providing Safe Environment PATIENT REQUIRES INTENSIVE, COORDINATED INTERDISCIPLINARY APPROACH TO REHAB: Arranging Home Equipment/Services Discharge Planning Family Intervention/Training Bookseamer Blindstitch/Case Management PATIENT REHAB POTENTIAL: Annabel BRANDT is able and expected to receive 3 hours of individualized therapy daily on at least 5 of every 7 days Annabel BRANDT's prognosis for significant practical improvement within a reasonable period of time appe ars Good Expected level of measurable improvement will be of a practical value to Annabel BRANDT's functional cap acity or adaptations to impairments Has a viable Discharge Plan Medically appropriate; condition is sufficiently stable to participate in intensive rehab program DISCHARGE PLAN: - Estimated Length of Stay (days) 11. - Consensus on plan Discharge plan has not been discussed with primary caregiver. Patient/Family is in agreement with the plan. Primary caregiver is in agreement with the plan. - Patient/Family Goals Return home independently. - Planned Living Setting Upon Discharge Home, to live with Family/Relatives. Transitional Living. RECOMMENDED CARE LEVEL: IRF RECOMMENDATION DETAILS: Recommended Admission to Comprehensive Rehabilitation Program to Increase Functional [facility] SCREENER'S COMPLETENESS CONFIRMATION: - Screening Confirmation The patient data collection on this preadmission screening form is finished PHYSICIANS REVIEW AND ADMISSION DETERMINATION Admit - Based on my review of the Pre-Admission Screening results, in my medical judgment and experie nce, I concur with the findings and recommend admission to [facility], as this patient requires an IRF level of care. SIGNATURE PANEL: Director Of Sports Performance - [electronically] signed by Maddison Burroughs on 02/27/2021 at 15:28 (CDT) Director Of Sports Performance - [electronically] signed by Pablo Carrion PT on 02/27/2021 at 15:38 (CDT) Physician Reviewer - [electronically] signed by Dr. Jamaal Madrigal M.D. on 02/27/2021 at 16:33 (CDT )
--- OUTSIDE RECORDS SUMMARY | 2021-02-27 19:47 | XMS REPORT | Continuity of Care Document ---
:1940 Author Organization [facility] t Address [address] [place] [address] Care Team Providers Name Role Phone Salma Merrill Attending Clinician Unavailable Garfield, Salma Admitting Clinician Unavailable Payers Payer Name Policy Type Policy Number Effective Date Expiration Date S ource Problems This patient has no known problems. Allergies, Adverse Reactions, Alerts Allergy Allergy Status Severity Reaction(s) Onset Inactive Treating Comm ents Source Name Type Date Date Clinician sulfamet DA Active MO 0 [facility] - [facility] 00:00: d 00 [facility] trimetho DA Active MO 0 [facility] prim 02-16 [facility] 00:00: d 00 [facility] Medications This patient has no known medications. Procedures This patient has no known procedures. Encounters Start End Encounter Admission Attending Care Care Encounter Source Date/Time Date/Time Type Type Clinicians Facility Department ID 2021-02-16 2021-02-27 Inpatient EM DEL MerrillJUNIOR CARD [id number] [facility] 04:54:00 18:50:00 Juve [id number] [facility] Results Test Description Test Time Test Comments Results Result Comments Source GLUBED 2021-02-27 16:39:00 Test Item Value Reference Range Interpretation Comme nts GLUBED (test code = GLUBED) 313 MG/DL 74-106 H [id number] 13:02:00 Test Item Value Reference Range Interpretation Comments GLUBED (test code = GLUBED) 275 MG/DL 74-106 H [id number] 05:42:00 Test Item Value Reference Range Interpretation Comments GLUBED (test code = GLUBED) 114 MG/DL 74-106 H [id number] 20:42:00 Test Item Value Reference Range Interpretation Comments GLUBED (test code = GLUBED) 212 MG/DL 74-106 H [id number] 17:55:00 Test Item Value Reference Range Interpretation Comments GLUBED (test code = GLUBED) 211 MG/DL 74-106 H [id number] 16:14:00 Test Item Value Reference Range Interpretation Comments GLUBED (test code = GLUBED) 314 MG/DL 74-106 H [id number] 12:45:00 Test Item Value Reference Range Interpretation Comments GLUBED (test code = GLUBED) 360 MG/DL 74-106 H COMPREHENSIVE METABOLIC [id number] 06:31:00 Test Item Value Reference Range Interpretation Comments SODIUM (test code = 139 mmol/L 137-145 N NA) POTASSIUM (test code 3.4 mmol/L 3.4-5.0 N = K) CHLORIDE (test code 106 mmol/L 98-107 N = CL) CARBON DIOXIDE (test 24 mmol/L 22-30 N code = CO2) GLUCOSE (test code = 118 mg/dL 74-106 H GLU) BLOOD UREA NITROGEN 32 mg/dL 9-20 H (test code = BUN) GLOMERULAR 86 >60 The estimated FILTRATION RATE glomerular f iltration (test code = GFR) rate is co mputed usingpatient ra ce, age (>18), sex, and serum creatinine. If anyof the needed data elements are mi ssing the Laboratory cannot compute an doroteo mation of the glomerul ar filtration rate . CREATININE (test 0.9 mg/dL 0.7-1.3 N code = CREAT) TOTAL PROTEIN (test 6.8 g/dL 6.3-8.2 N code = PROT) " A positive bias m ay occur for patients ta merced Eltrombopag(a b one marrow stimulan t used to treat thrombocytopeni a andaplastic anemia)." ALBUMIN (test code = 3.2 g/dL 3.5-5.0 L ALB) CALCIUM (test code = 8.1 mg/dL 8.4-10.2 L CA) BILIRUBIN TOTAL 0.4 mg/dL 0.2-1.3 N "A positive bias may (test code = BILT) occur for patients taking Eltrombo pag(a bone marrow sti mulant used to treat thrombocytopeni a andaplastic ane justo)." BILIRUBIN CONJUGATED 0 mg/dL 0-0.3 N "A posi tive bias may (test code = BILCON) occur f or patients taking Eltrombo pag(a bone marrow sti mulant used to treat thrombocytopeni a andaplastic ane justo)." C ONJUGATE D BILIRUBIN IS THE REPLACEMENT ASS AY FOR DIRECTBILIRUBIN . BILIRUBIN 0.4 mg/dL 0-1.1 N UNCONJUGATED (test code = BILUNC) SGOT/AST (test code 38 U/L 15-46 N = AST) SGPT/ALT (test code 31 U/L 0-34 N = ALT) ALKALINE PHOSPHATASE 52 U/L 38-126 N (test code = ALKP) COMPREHENSIVE METABOLIC [id number] 06:18:00 Test Item Value Reference Range Interpretation Comments SODIUM (test code = 139 mmol/L 137-145 N NA) POTASSIUM (test code 3.4 mmol/L 3.4-5.0 N = K) CHLORIDE (test code 106 mmol/L 98-107 N = CL) CARBON DIOXIDE (test 24 mmol/L 22-30 N code = CO2) GLUCOSE (test code = 118 mg/dL 74-106 H GLU) BLOOD UREA NITROGEN 32 mg/dL 9-20 H (test code = BUN) GLOMERULAR 86 >60 The estimated FILTRATION RATE glomerular f iltration (test code = GFR) rate is co mputed usingpatient ra ce, age (>18), sex, and serum creatinine. If anyof the needed data elements are mi ssing the Laboratory cannot compute an doroteo mation of the glomerul ar filtration rate . CREATININE (test 0.9 mg/dL 0.7-1.3 N code = CREAT) TOTAL PROTEIN (test 6.8 g/dL 6.3-8.2 N code = PROT) " A positive bias m ay occur for patients ta merecd Eltrombopag(a b one marrow stimulan t used to treat thrombocytopeni a andaplastic anemia)." ALBUMIN (test code = 3.2 g/dL 3.5-5.0 L ALB) CALCIUM (test code = 8.1 mg/dL 8.4-10.2 L CA) BILIRUBIN TOTAL 0.4 mg/dL 0.2-1.3 N "A positive bias may (test code = BILT) occur for patients taking Eltrombo pag(a bone marrow sti mulant used to treat thrombocytopeni a andaplastic ane justo)." BILIRUBIN CONJUGATED 0 mg/dL 0-0.3 N "A posi tive bias may (test code = BILCON) occur f or patients taking Eltrombo pag(a bone marrow sti mulant used to treat thrombocytopeni a andaplastic ane justo)." C ONJUGATE D BILIRUBIN IS THE REPLACEMENT ASS AY FOR DIRECTBILIRUBIN . BILIRUBIN 0.4 mg/dL 0-1.1 N UNCONJUGATED (test code = BILUNC) SGOT/AST (test code 38 U/L 15-46 N = AST) SGPT/ALT (test code U/L 0-34 = ALT) ALKALINE PHOSPHATASE 52 U/L 38-126 N (test code = ALKP) [id number] 05:56:00 Test Item Value Reference Range Interpretation Comments GLUBED (test code = GLUBED) 115 MG/DL 74-106 H CBC W/AUTO [id number] 05:52:00 Test Item Value Reference Range Interpretation Comments WHITE BLOOD CELL (test code = 13.1 x10 3/uL 5.0-12.0 H WBC) RED BLOOD CELL (test code = 3.87 x10 6/uL 4.70-6.10 L RBC) HEMOGLOBIN (test code = HGB) 12.5 g/dL 14.0-18.0 L HEMATOCRIT (test code = HCT) 35.7 % 37.0-49.0 L MEAN CELL VOLUME (test code = 92 fL 80-94 N MCV) MEAN CELL HGB (test code = 32.3 pg 27-31 H MCH) MEAN CELL HGB CONCENTRATION 35.0 g/dL 33-37 N (test code = MCHC) RED CELL DISTRIBUTION WIDTH 12.4 % 11.5-15.5 N (test code = RDW) PLATELET COUNT (test code = 347 x10 3/uL 130-400 N PLT) MEAN PLATELET VOLUME (test 11.0 fL 9.4-16.4 N code = MPV) NEUTROPHIL % (test code = NT%) 79.5 % 43-65 H IMMATURE GRANULOCYTE % (test 0.5 % 0.0-2.0 N code = IG%) LYMPHOCYTE % (test code = LY%) 12.0 % 20.5-45.5 L MONOCYTE % (test code = MO%) 7.6 % 5.5-11.7 N EOSINOPHIL % (test code = EO%) 0.2 % 0.9-2.9 L BASOPHIL % (test code = BA%) 0.2 % 0.2-1.0 N NUCLEATED RBC % (test code = 0.0 % 0-1.0 N NRBC%) NEUTROPHIL # (test code = NT#) 10.44 x10 3/uL 2.2-4.8 H IMMATURE GRANULOCYTE # (test 0.06 x10 3/uL 0-0.03 H code = IG#) LYMPHOCYTE # (test code = LY#) 1.58 x10 3/uL 1.3-2.9 N MONOCYTE # (test code = MO#) 1.00 x10 3/uL 0.3-0.8 H EOSINOPHIL # (test code = EO#) 0.02 x10 3/uL 0.0-0.2 N BASOPHIL # (test code = BA#) 0.02 x10 3/uL 0.0-0.1 N [id number] 20:38:00 Test Item Value Reference Range Interpretation Comments GLUBED (test code = GLUBED) 245 MG/DL 74-106 H [id number] 16:58:00 Test Item Value Reference Range Interpretation Comments GLUBED (test code = GLUBED) 304 MG/DL 74-106 H - XR CHEST 1 [id number] 16:35:00 [facility] WOODName: SIMON BRANDT : 1940 Sex: M FAX: Roman Vaughn [place]: St: ADM FAX: Jaden King MD [phone] Name: SIMON BRANDT [facility] : 1940 Age/S: 81/M [address] Unit #: [id number] Loc: [address] [place] [address] Phys: Jaden Oliva MD Acct: [id number] Dis Date: Status: ADM IN PHONE #: [phone] Exam Date: 02/25/2021 1610 FAX #: [phone] Reason: pnuemonia EXAMS: CPT CODE: [id number] XR CHEST 1 V 74435 EXAM: - XR CHEST 1 V Location code:C3 HISTORY: Pneumonia COMPARISON: 02/22/2021 FINDINGS: Single AP view of the chest is provided. Multiple bilateral pulmonary opacities are again seen. There is no pneumothorax or significant effusion. No additional interval change. IMPRESSION: 1. No significant interval change. at 8552 Reported and signed by: Roverto Matta MD CC: Roman Gayle MD; Jaden Oliva MD Technologist: Mariely Boss [facility] Date/Time/By: 02/25/2021 (9492) : By: [email or web address] PAGE 1 Signed Report FAX:Roman Vaughn [place]: St: [facility] FAX: Jaden Dave MD [phone] Name: SIMON BRANDT [facility] Maryjane : 1940 Age/S: 81/M [address] Unit #: [id number] Loc: Abhinav[address] [place] [address] Phys: Jaden Oliva MD Acct: [id number] Dis Date: Status: ADM IN PHONE #: [phone] Exam Date: 02/25/2021 1610 FAX #: [phone] Reason: pnuemonia EXAMS: CPT CODE: [id number] XR CHEST 1 V 16320 <Continued> Orig Print D/T: S: 02/25/2021 (3012) PAGE2 Signed [id number] 12:24:00 Test Item Value Reference Range Interpretation Comments GLUBED (test code = GLUBED) 233 MG/DL 74-106 H COMPREHENSIVE METABOLIC [id number] 05:49:00 Test Item Value Reference Range Interpretation Comments SODIUM (test code = 140 mmol/L 137-145 N NA) POTASSIUM (test code 3.6 mmol/L 3.4-5.0 N = K) CHLORIDE (test code 104 mmol/L 98-107 N = CL) CARBON DIOXIDE (test 25 mmol/L 22-30 N code = CO2) GLUCOSE (test code = 99 mg/dL 74-106 N GLU) BLOOD UREA NITROGEN 35 mg/dL 9-20 H (test code = BUN) GLOMERULAR 76 >60 The estimated FILTRATION RATE glomerular f iltration (test code = GFR) rate is co mputed usingpatient ra ce, age (>18), sex, and serum creatinine. If anyof the needed data elements are mi ssing the Laboratory cannot compute an doroteo mation of the glomerul ar filtration rate . CREATININE (test 1.0 mg/dL 0.7-1.3 N code = CREAT) TOTAL PROTEIN (test 7.4 g/dL 6.3-8.2 N code = PROT) " A positive bias m ay occur for patients ta merced Eltrombopag(a b one marrow stimulan t used to treat thrombocytopeni a andaplastic anemia)." ALBUMIN (test code = 3.5 g/dL 3.5-5.0 N ALB) CALCIUM (test code = 8.6 mg/dL 8.4-10.2 N CA) BILIRUBIN TOTAL 0.4 mg/dL 0.2-1.3 N "A positive bias may (test code = BILT) occur for patients taking Eltrombo pag(a bone marrow sti mulant used to treat thrombocytopeni a andaplastic ane justo)." BILIRUBIN CONJUGATED 0 mg/dL 0-0.3 N "A posi tive bias may (test code = BILCON) occur f or patients taking Eltrombo pag(a bone marrow sti mulant used to treat thrombocytopeni a andaplastic ane justo)." C ONJUGATE D BILIRUBIN IS THE REPLACEMENT ASS AY FOR DIRECTBILIRUBIN . BILIRUBIN 0.4 mg/dL 0-1.1 N UNCONJUGATED (test code = BILUNC) SGOT/AST (test code 41 U/L 15-46 N = AST) SGPT/ALT (test code 34 U/L 0-34 N = ALT) ALKALINE PHOSPHATASE 65 U/L 38-126 N (test code = ALKP) CBC W/AUTO [id number] 05:17:00 Test Item Value Reference Range Interpretation Comments WHITE BLOOD CELL (test code = 13.9 x10 3/uL 5.0-12.0 H WBC) RED BLOOD CELL (test code = 4.21 x10 6/uL 4.70-6.10 L RBC) HEMOGLOBIN (test code = HGB) 13.4 g/dL 14.0-18.0 L HEMATOCRIT (test code = HCT) 39.3 % 37.0-49.0 N MEAN CELL VOLUME (test code = 93 fL 80-94 N MCV) MEAN CELL HGB (test code = 31.8 pg 27-31 H MCH) MEAN CELL HGB CONCENTRATION 34.1 g/dL 33-37 N (test code = MCHC) RED CELL DISTRIBUTION WIDTH 12.6 % 11.5-15.5 N (test code = RDW) PLATELET COUNT (test code = 368 x10 3/uL 130-400 N PLT) MEAN PLATELET VOLUME (test 11.5 fL 9.4-16.4 N code = MPV) NEUTROPHIL % (test code = NT%) 78.4 % 43-65 H IMMATURE GRANULOCYTE % (test 0.5 % 0.0-2.0 N code = IG%) LYMPHOCYTE % (test code = LY%) 12.8 % 20.5-45.5 L MONOCYTE % (test code = MO%) 8.1 % 5.5-11.7 N EOSINOPHIL % (test code = EO%) 0.1 % 0.9-2.9 L BASOPHIL % (test code = BA%) 0.1 % 0.2-1.0 L NUCLEATED RBC % (test code = 0.0 % 0-1.0 N NRBC%) NEUTROPHIL # (test code = NT#) 10.88 x10 3/uL 2.2-4.8 H IMMATURE GRANULOCYTE # (test 0.07 x10 3/uL 0-0.03 H code = IG#) LYMPHOCYTE # (test code = LY#) 1.78 x10 3/uL 1.3-2.9 N MONOCYTE # (test code = MO#) 1.12 x10 3/uL 0.3-0.8 H EOSINOPHIL # (test code = EO#) 0.02 x10 3/uL 0.0-0.2 N BASOPHIL # (test code = BA#) 0.02 x10 3/uL 0.0-0.1 N [id number] 04:38:00 Test Item Value Reference Range Interpretation Comments GLUBED (test code = GLUBED) 96 MG/DL 74-106 N [id number] 20:14:00 Test Item Value Reference Range Interpretation Comments GLUBED (test code = GLUBED) 198 MG/DL 74-106 H [id number] 17:03:00 Test Item Value Reference Range Interpretation Comments GLUBED (test code = GLUBED) 224 MG/DL 74-106 H [id number] 12:42:00 Test Item Value Reference Range Interpretation Comments GLUBED (test code = GLUBED) 331 MG/DL 74-106 H [id number] 06:49:00 Test Item Value Reference Range Interpretation Comments GLUBED (test code = GLUBED) 132 MG/DL 74-106 H COMPREHENSIVE METABOLIC [id number] 04:03:00 Test Item Value Reference Range Interpretation Comments SODIUM (test code = 137 mmol/L 137-145 N NA) POTASSIUM (test code 3.3 mmol/L 3.4-5.0 L = K) CHLORIDE (test code 103 mmol/L 98-107 N = CL) CARBON DIOXIDE (test 25 mmol/L 22-30 N code = CO2) GLUCOSE (test code = 141 mg/dL 74-106 H GLU) BLOOD UREA NITROGEN 34 mg/dL 9-20 H (test code = BUN) GLOMERULAR 76 >60 The estimated FILTRATION RATE glomerular f iltration (test code = GFR) rate is co mputed usingpatient ra ce, age (>18), sex, and serum creatinine. If anyof the needed data elements are mi ssing the Laboratory cannot compute an doroteo mation of the glomerul ar filtration rate . CREATININE (test 1.0 mg/dL 0.7-1.3 N code = CREAT) TOTAL PROTEIN (test 7.2 g/dL 6.3-8.2 N code = PROT) " A positive bias m ay occur for patients ta merced Eltrombopag(a b one marrow stimulan t used to treat thrombocytopeni a andaplastic anemia)." ALBUMIN (test code = 3.3 g/dL 3.5-5.0 L ALB) CALCIUM (test code = 7.9 mg/dL 8.4-10.2 L CA) BILIRUBIN TOTAL 0.4 mg/dL 0.2-1.3 N "A positive bias may (test code = BILT) occur for patients taking Eltrombo pag(a bone marrow sti mulant used to treat thrombocytopeni a andaplastic ane justo)." BILIRUBIN CONJUGATED 0 mg/dL 0-0.3 N "A posi tive bias may (test code = BILCON) occur f or patients taking Eltrombo pag(a bone marrow sti mulant used to treat thrombocytopeni a andaplastic ane justo)." C ONJUGATE D BILIRUBIN IS THE REPLACEMENT ASS AY FOR DIRECTBILIRUBIN . BILIRUBIN 0.1 mg/dL 0-1.1 N UNCONJUGATED (test code = BILUNC) SGOT/AST (test code 53 U/L 15-46 H = AST) SGPT/ALT (test code 31 U/L 0-34 N = ALT) ALKALINE PHOSPHATASE 50 U/L 38-126 N (test code = ALKP) CBC W/AUTO [id number] 03:46:00 Test Item Value Reference Range Interpretation Comments WHITE BLOOD CELL (test code = 9.9 x10 3/uL 5.0-12.0 N WBC) RED BLOOD CELL (test code = 4.28 x10 6/uL 4.70-6.10 L RBC) HEMOGLOBIN (test code = HGB) 13.7 g/dL 14.0-18.0 L HEMATOCRIT (test code = HCT) 39.0 % 37.0-49.0 N MEAN CELL VOLUME (test code = 91 fL 80-94 N MCV) MEAN CELL HGB (test code = MCH) 32.0 pg 27-31 H MEAN CELL HGB CONCENTRATION 35.1 g/dL 33-37 N (test code = MCHC) RED CELL DISTRIBUTION WIDTH 12.5 % 11.5-15.5 N (test code = RDW) PLATELET COUNT (test code = 323 x10 3/uL 130-400 N PLT) MEAN PLATELET VOLUME (test code 11.3 fL 9.4-16.4 N = MPV) NEUTROPHIL % (test code = NT%) 77.1 % 43-65 H IMMATURE GRANULOCYTE % (test 0.6 % 0.0-2.0 N code = IG%) LYMPHOCYTE % (test code = LY%) 13.1 % 20.5-45.5 L MONOCYTE % (test code = MO%) 9.1 % 5.5-11.7 N EOSINOPHIL % (test code = EO%) 0.0 % 0.9-2.9 L BASOPHIL % (test code = BA%) 0.1 % 0.2-1.0 L NUCLEATED RBC % (test code = 0.0 % 0-1.0 N NRBC%) NEUTROPHIL # (test code = NT#) 7.62 x10 3/uL 2.2-4.8 H IMMATURE GRANULOCYTE # (test 0.06 x10 3/uL 0-0.03 H code = IG#) LYMPHOCYTE # (test code = LY#) 1.30 x10 3/uL 1.3-2.9 N MONOCYTE # (test code = MO#) 0.90 x10 3/uL 0.3-0.8 H EOSINOPHIL # (test code = EO#) 0.00 x10 3/uL 0.0-0.2 N BASOPHIL # (test code = BA#) 0.01 x10 3/uL 0.0-0.1 N [id number] 21:22:00 Test Item Value Reference Range Interpretation Comments GLUBED (test code = GLUBED) 170 MG/DL 74-106 H [id number] 17:14:00 Test Item Value Reference Range Interpretation Comments GLUBED (test code = GLUBED) 222 MG/DL 74-106 H [id number] 12:02:00 Test Item Value Reference Range Interpretation Comments GLUBED (test code = GLUBED) 191 MG/DL 74-106 H COMPREHENSIVE METABOLIC [id number] 05:28:00 Test Item Value Reference Range Interpretation Comments SODIUM (test code = 137 mmol/L 137-145 N NA) POTASSIUM (test code 3.7 mmol/L 3.4-5.0 N = K) CHLORIDE (test code 102 mmol/L 98-107 N = CL) CARBON DIOXIDE (test 23 mmol/L 22-30 N code = CO2) GLUCOSE (test code = 177 mg/dL 74-106 H GLU) BLOOD UREA NITROGEN 26 mg/dL 9-20 H (test code = BUN) GLOMERULAR 76 >60 The estimated FILTRATION RATE glomerular f iltration (test code = GFR) rate is co mputed usingpatient ra ce, age (>18), sex, and serum creatinine. If anyof the needed data elements are mi ssing the Laboratory cannot compute an doroteo mation of the glomerul ar filtration rate . CREATININE (test 1.0 mg/dL 0.7-1.3 N code = CREAT) TOTAL PROTEIN (test 7.9 g/dL 6.3-8.2 N code = PROT) " A positive bias m ay occur for patients ta merced Eltrombopag(a b one marrow stimulan t used to treat thrombocytopeni a andaplastic anemia)." ALBUMIN (test code = 3.7 g/dL 3.5-5.0 N ALB) CALCIUM (test code = 8.2 mg/dL 8.4-10.2 L CA) BILIRUBIN TOTAL 0.7 mg/dL 0.2-1.3 N "A positive bias may (test code = BILT) occur for patients taking Eltrombo pag(a bone marrow sti mulant used to treat thrombocytopeni a andaplastic ane justo)." BILIRUBIN CONJUGATED 0 mg/dL 0-0.3 N "A posi tive bias may (test code = BILCON) occur f or patients taking Eltrombo pag(a bone marrow sti mulant used to treat thrombocytopeni a andaplastic ane justo)." C ONJUGATE D BILIRUBIN IS THE REPLACEMENT ASS AY FOR DIRECTBILIRUBIN . BILIRUBIN 0.2 mg/dL 0-1.1 N UNCONJUGATED (test code = BILUNC) SGOT/AST (test code 60 U/L 15-46 H = AST) SGPT/ALT (test code 37 U/L 0-34 H = ALT) ALKALINE PHOSPHATASE 51 U/L 38-126 N (test code = ALKP) CBC W/AUTO [id number] 04:54:00 Test Item Value Reference Range Interpretation Comments WHITE BLOOD CELL (test code = 8.1 x10 3/uL 5.0-12.0 N WBC) RED BLOOD CELL (test code = 4.17 x10 6/uL 4.70-6.10 L RBC) HEMOGLOBIN (test code = HGB) 13.1 g/dL 14.0-18.0 L HEMATOCRIT (test code = HCT) 39.2 % 37.0-49.0 N MEAN CELL VOLUME (test code = 94 fL 80-94 N MCV) MEAN CELL HGB (test code = MCH) 31.4 pg 27-31 H MEAN CELL HGB CONCENTRATION 33.4 g/dL 33-37 N (test code = MCHC) RED CELL DISTRIBUTION WIDTH 12.8 % 11.5-15.5 N (test code = RDW) PLATELET COUNT (test code = 272 x10 3/uL 130-400 N PLT) MEAN PLATELET VOLUME (test code 11.1 fL 9.4-16.4 N = MPV) NEUTROPHIL % (test code = NT%) 72.5 % 43-65 H IMMATURE GRANULOCYTE % (test 0.4 % 0.0-2.0 N code = IG%) LYMPHOCYTE % (test code = LY%) 16.3 % 20.5-45.5 L MONOCYTE % (test code = MO%) 10.7 % 5.5-11.7 N EOSINOPHIL % (test code = EO%) 0.0 % 0.9-2.9 L BASOPHIL % (test code = BA%) 0.1 % 0.2-1.0 L NUCLEATED RBC % (test code = 0.0 % 0-1.0 N NRBC%) NEUTROPHIL # (test code = NT#) 5.89 x10 3/uL 2.2-4.8 H IMMATURE GRANULOCYTE # (test 0.03 x10 3/uL 0-0.03 N code = IG#) LYMPHOCYTE # (test code = LY#) 1.32 x10 3/uL 1.3-2.9 N MONOCYTE # (test code = MO#) 0.87 x10 3/uL 0.3-0.8 H EOSINOPHIL # (test code = EO#) 0.00 x10 3/uL 0.0-0.2 N BASOPHIL # (test code = BA#) 0.01 x10 3/uL 0.0-0.1 N [id number] 20:46:00 Test Item Value Reference Range Interpretation Comments GLUBED (test code = GLUBED) 177 MG/DL 74-106 H C REACTIVE [id number] 19:08:00 Test Item Value Reference Range Interpretation Comments C REACTIVE PROTEIN (test code = 165.5 mg/L 0-9 H CRP) CBC W/AUTO [id number] 18:30:00 Test Item Value Reference Range Interpretation Comments WHITE BLOOD CELL (test code = 9.6 x10 3/uL 5.0-12.0 N WBC) RED BLOOD CELL (test code = 4.32 x10 6/uL 4.70-6.10 L RBC) HEMOGLOBIN (test code = HGB) 13.9 g/dL 14.0-18.0 L HEMATOCRIT (test code = HCT) 39.8 % 37.0-49.0 N MEAN CELL VOLUME (test code = 92 fL 80-94 N MCV) MEAN CELL HGB (test code = MCH) 32.2 pg 27-31 H MEAN CELL HGB CONCENTRATION 34.9 g/dL 33-37 N (test code = MCHC) RED CELL DISTRIBUTION WIDTH 12.7 % 11.5-15.5 N (test code = RDW) PLATELET COUNT (test code = 260 x10 3/uL 130-400 N PLT) MEAN PLATELET VOLUME (test code 11.2 fL 9.4-16.4 N = MPV) NEUTROPHIL % (test code = NT%) 79.6 % 43-65 H IMMATURE GRANULOCYTE % (test 0.7 % 0.0-2.0 N code = IG%) LYMPHOCYTE % (test code = LY%) 12.4 % 20.5-45.5 L MONOCYTE % (test code = MO%) 6.5 % 5.5-11.7 N EOSINOPHIL % (test code = EO%) 0.6 % 0.9-2.9 L BASOPHIL % (test code = BA%) 0.2 % 0.2-1.0 N NUCLEATED RBC % (test code = 0.0 % 0-1.0 N NRBC%) NEUTROPHIL # (test code = NT#) 7.60 x10 3/uL 2.2-4.8 H IMMATURE GRANULOCYTE # (test 0.07 x10 3/uL 0-0.03 H code = IG#) LYMPHOCYTE # (test code = LY#) 1.19 x10 3/uL 1.3-2.9 L MONOCYTE # (test code = MO#) 0.62 x10 3/uL 0.3-0.8 N EOSINOPHIL # (test code = EO#) 0.06 x10 3/uL 0.0-0.2 N BASOPHIL # (test code = BA#) 0.02 x10 3/uL 0.0-0.1 N COMPREHENSIVE METABOLIC [id number] 18:28:00 Test Item Value Reference Range Interpretation Comments SODIUM (test code = 136 mmol/L 137-145 L NA) POTASSIUM (test code 3.4 mmol/L 3.4-5.0 N = K) CHLORIDE (test code 101 mmol/L 98-107 N = CL) CARBON DIOXIDE (test 26 mmol/L 22-30 N code = CO2) GLUCOSE (test code = 167 mg/dL 74-106 H GLU) BLOOD UREA NITROGEN 25 mg/dL 9-20 H (test code = BUN) GLOMERULAR 76 >60 The estimated FILTRATION RATE glomerular f iltration (test code = GFR) rate is co mputed usingpatient ra ce, age (>18), sex, and serum creatinine. If anyof the needed data elements are mi ssing the Laboratory cannot compute an doroteo mation of the glomerul ar filtration rate . CREATININE (test 1.0 mg/dL 0.7-1.3 N code = CREAT) TOTAL PROTEIN (test 7.6 g/dL 6.3-8.2 N code = PROT) " A positive bias m ay occur for patients ta mer[place] Eltrombopag(a b one marrow stimulan t used to treat thrombocytopeni a andaplastic anemia)." ALBUMIN (test code = 3.6 g/dL 3.5-5.0 N ALB) CALCIUM (test code = 8.3 mg/dL 8.4-10.2 L CA) BILIRUBIN TOTAL 0.4 mg/dL 0.2-1.3 N "A positive bias may (test code = BILT) occur for patients taking Eltrombo pag(a bone marrow sti mulant used to treat thrombocytopeni a andaplastic ane justo)." BILIRUBIN CONJUGATED 0 mg/dL 0-0.3 N "A posi tive bias may (test code = BILCON) occur f or patients taking Eltrombo pag(a bone marrow sti mulant used to treat thrombocytopeni a andaplastic ane justo)." C ONJUGATE D BILIRUBIN IS THE REPLACEMENT ASS AY FOR DIRECTBILIRUBIN . BILIRUBIN 0.2 mg/dL 0-1.1 N UNCONJUGATED (test code = BILUNC) SGOT/AST (test code 56 U/L 15-46 H = AST) SGPT/ALT (test code 36 U/L 0-34 H = ALT) ALKALINE PHOSPHATASE 56 U/L 38-126 N (test code = ALKP) COMPREHENSIVE METABOLIC [id number] 18:27:00 Test Item Value Reference Range Interpretation Comments SODIUM (test code = 136 mmol/L 137-145 L NA) POTASSIUM (test code 3.4 mmol/L 3.4-5.0 N = K) CHLORIDE (test code 101 mmol/L 98-107 N = CL) CARBON DIOXIDE (test 26 mmol/L 22-30 N code = CO2) GLUCOSE (test code = 167 mg/dL 74-106 H GLU) BLOOD UREA NITROGEN 25 mg/dL 9-20 H (test code = BUN) GLOMERULAR 76 >60 The estimated FILTRATION RATE glomerular f iltration (test code = GFR) rate is co mputed usingpatient ra ce, age (>18), sex, and serum creatinine. If anyof the needed data elements are mi ssing the Laboratory cannot compute an doroteo mation of the glomerul ar filtration rate . CREATININE (test 1.0 mg/dL 0.7-1.3 N code = CREAT) TOTAL PROTEIN (test 7.6 g/dL 6.3-8.2 N code = PROT) " A positive bias m ay occur for patients [place] Eltrombopag(a b one marrow stimulan t used to treat thrombocytopeni a andaplastic anemia)." ALBUMIN (test code = 3.6 g/dL 3.5-5.0 N ALB) CALCIUM (test code = 8.3 mg/dL 8.4-10.2 L CA) BILIRUBIN TOTAL 0.4 mg/dL 0.2-1.3 N "A positive bias may (test code = BILT) occur for patients taking Eltrombo pag(a bone marrow sti mulant used to treat thrombocytopeni a andaplastic ane justo)." BILIRUBIN CONJUGATED 0 mg/dL 0-0.3 N "A posi tive bias may (test code = BILCON) occur f or patients taking Eltrombo pag(a bone marrow sti mulant used to treat thrombocytopeni a andaplastic ane justo)." C ONJUGATE D BILIRUBIN IS THE REPLACEMENT ASS AY FOR DIRECTBILIRUBIN . BILIRUBIN 0.2 mg/dL 0-1.1 N UNCONJUGATED (test code = BILUNC) SGOT/AST (test code 56 U/L 15-46 H = AST) SGPT/ALT (test code U/L 0-34 = ALT) ALKALINE PHOSPHATASE 56 U/L 38-126 N (test code = ALKP) [id number] 16:36:00 Test Item Value Reference Range Interpretation Comments GLUBED (test code = GLUBED) 149 MG/DL 74-106 H [id number] 12:34:00 Test Item Value Reference Range Interpretation Comments GLUBED (test code = GLUBED) 162 MG/DL 74-106 H - XR CHEST 1 [id number] 10:35:00 [facility] 1940 Sex: M FAX: Y Roman Guevara [place]: St: ADM Name: SIMON BRANDT [facility] : 1940 Age/S: 81/M [address] Unit #: [id number] Loc: [address] [place] [address] Phys: Rmoan Guevara MD Acct: [id number] Dis Date: Status: ADM IN PHONE #: [phone] Exam Date: 02/22/2021 1027 FAX #: [phone] Reason: RESPIRATORY FAILURE EXAMS: CPT CODE: [id number] XR CHEST 1 V 76065 - XR CHEST 1 V INDICATION:Pneumonia, Covid positive LOCATION: T18 Increasing patchy bilateral lung infiltrates, right greater than left. No pneumothorax. Trace pleural effusions suspected. The cardiomediastinal silhouette is within normal limits. The bony thorax is unremarkable. IMPRESSION: Worsening Covid pneumonia compared with 02/17/2021. at 1035 Reported and signed by: Cesar Brooke DO CC: Roman Gayle MD Technologist: CINDI RAMIRES Trn[place]ord Date/Time/By: 02/22/2021 (3598) : By: Baldev PAGE 1 Signed Report FAX: Y Roman Guevara [place]: St: ADM Name: SIMON BRANDT [facility] : 1940 Age/S: 81/M [address] Unit #: [id number] Loc: [address], [place] [address] Phys: Roman Guevara MD Acct: [id number] Dis Date: Status: ADM IN PHONE #: [phone] Exam Date: 02/22/2021 1028 FAX #: [phone] Reason: RESPIRATORY FAILURE EXAMS: CPT CODE: [id number] XR CHEST 1 V 30861 <Continued> Orig Print D/T: S: 02/22/2021 (1706) PAGE 2 Signed ReportGLUBED 2021-02-22 06:14:00 Test Item Value Reference Range Interpretation Comments GLUBED (test code = GLUBED) 121 MG/DL 74-106 H [id number] 20:50:00 Test Item Value Reference Range Interpretation Comments GLUBED (test code = 126 MG/DL 74-106 H RPT,RBV TO PHYSICIAN GLUBED) [id number] 17:28:00 Test Item Value Reference Range Interpretation Comments GLUBED (test code = GLUBED) 172 MG/DL 74-106 H [id number] 11:40:00 Test Item Value Reference Range Interpretation Comments GLUBED (test code = GLUBED) 181 MG/DL 74-106 H [id number] 05:22:00 Test Item Value Reference Range Interpretation Comments GLUBED (test code = GLUBED) 206 MG/DL 74-106 H [id number] 21:45:00 Test Item Value Reference Range Interpretation Comments GLUBED (test code = GLUBED) 256 MG/DL 74-106 H [id number] 16:46:00 Test Item Value Reference Range Interpretation Comments GLUBED (test code = GLUBED) 159 MG/DL 74-106 H [id number] 13:28:00 Test Item Value Reference Range Interpretation Comments GLUBED (test code = GLUBED) 180 MG/DL 74-106 H COMPREHENSIVE METABOLIC [id number] 10:57:00 Test Item Value Reference Range Interpretation Comments SODIUM (test code = 138 mmol/L 137-145 N NA) POTASSIUM (test code 3.4 mmol/L 3.4-5.0 N = K) CHLORIDE (test code 101 mmol/L 98-107 N = CL) CARBON DIOXIDE (test 24 mmol/L 22-30 N code = CO2) GLUCOSE (test code = 215 mg/dL 74-106 H GLU) BLOOD UREA NITROGEN 23 mg/dL 9-20 H (test code = BUN) GLOMERULAR 68 >60 The estimated FILTRATION RATE glomerular f iltration (test code = GFR) rate is co mputed usingpatient ra ce, age (>18), sex, and serum creatinine. If anyof the needed data elements are mi ssing the Laboratory cannot compute an doroteo mation of the glomerul ar filtration rate . CREATININE (test 1.1 mg/dL 0.7-1.3 N code = CREAT) TOTAL PROTEIN (test 8.3 g/dL 6.3-8.2 H code = PROT) " A positive bias m ay occur for patients ta merced Eltrombopag(a b one marrow stimulan t used to treat thrombocytopeni a andaplastic anemia)." ALBUMIN (test code = 4.1 g/dL 3.5-5.0 N ALB) CALCIUM (test code = 8.7 mg/dL 8.4-10.2 N CA) BILIRUBIN TOTAL 0.7 mg/dL 0.2-1.3 N "A positive bias may (test code = BILT) occur for patients taking Eltrombo pag(a bone marrow sti mulant used to treat thrombocytopeni a andaplastic ane justo)." BILIRUBIN CONJUGATED 0 mg/dL 0-0.3 N "A posi tive bias may (test code = BILCON) occur f or patients taking Eltrombo pag(a bone marrow sti mulant used to treat thrombocytopeni a andaplastic ane justo)." C ONJUGATE D BILIRUBIN IS THE REPLACEMENT ASS AY FOR DIRECTBILIRUBIN . BILIRUBIN 0.4 mg/dL 0-1.1 N UNCONJUGATED (test code = BILUNC) SGOT/AST (test code 52 U/L 15-46 H = AST) SGPT/ALT (test code 36 U/L 0-34 H = ALT) ALKALINE PHOSPHATASE 55 U/L 38-126 N (test code = ALKP) COMPREHENSIVE METABOLIC [id number] 10:51:00 Test Item Value Reference Range Interpretation Comments SODIUM (test code = 138 mmol/L 137-145 N NA) POTASSIUM (test code 3.4 mmol/L 3.4-5.0 N = K) CHLORIDE (test code 101 mmol/L 98-107 N = CL) CARBON DIOXIDE (test 24 mmol/L 22-30 N code = CO2) GLUCOSE (test code = 215 mg/dL 74-106 H GLU) BLOOD UREA NITROGEN 23 mg/dL 9-20 H (test code = BUN) GLOMERULAR 68 >60 The estimated FILTRATION RATE glomerular f iltration (test code = GFR) rate is co mputed usingpatient ra ce, age (>18), sex, and serum creatinine. If anyof the needed data elements are mi ssing the Laboratory cannot compute an doroteo mation of the glomerul ar filtration rate . CREATININE (test 1.1 mg/dL 0.7-1.3 N code = CREAT) TOTAL PROTEIN (test 8.3 g/dL 6.3-8.2 H code = PROT) " A positive bias m ay occur for patients ta merced Eltrombopag(a b one marrow stimulan t used to treat thrombocytopeni a andaplastic anemia)." ALBUMIN (test code = 4.1 g/dL 3.5-5.0 N ALB) CALCIUM (test code = 8.7 mg/dL 8.4-10.2 N CA) BILIRUBIN TOTAL 0.7 mg/dL 0.2-1.3 N "A positive bias may (test code = BILT) occur for patients taking Eltrombo pag(a bone marrow sti mulant used to treat thrombocytopeni a andaplastic ane justo)." BILIRUBIN CONJUGATED 0 mg/dL 0-0.3 N "A posi tive bias may (test code = BILCON) occur f or patients taking Eltrombo pag(a bone marrow sti mulant used to treat thrombocytopeni a andaplastic ane justo)." C ONJUGATE D BILIRUBIN IS THE REPLACEMENT ASS AY FOR DIRECTBILIRUBIN . BILIRUBIN 0.4 mg/dL 0-1.1 N UNCONJUGATED (test code = BILUNC) SGOT/AST (test code 52 U/L 15-46 H = AST) SGPT/ALT (test code U/L 0-34 = ALT) ALKALINE PHOSPHATASE 55 U/L 38-126 N (test code = ALKP) CBC W/AUTO [id number] 10:39:00 Test Item Value Reference Range Interpretation Comments WHITE BLOOD CELL (test code = 8.4 x10 3/uL 5.0-12.0 N WBC) RED BLOOD CELL (test code = 4.94 x10 6/uL 4.70-6.10 N RBC) HEMOGLOBIN (test code = HGB) 16.0 g/dL 14.0-18.0 N HEMATOCRIT (test code = HCT) 45.0 % 37.0-49.0 N MEAN CELL VOLUME (test code = 91 fL 80-94 N MCV) MEAN CELL HGB (test code = MCH) 32.4 pg 27-31 H MEAN CELL HGB CONCENTRATION 35.6 g/dL 33-37 N (test code = MCHC) RED CELL DISTRIBUTION WIDTH 12.8 % 11.5-15.5 N (test code = RDW) PLATELET COUNT (test code = 187 x10 3/uL 130-400 N PLT) MEAN PLATELET VOLUME (test code 12.0 fL 9.4-16.4 N = MPV) NEUTROPHIL % (test code = NT%) 70.3 % 43-65 H IMMATURE GRANULOCYTE % (test 0.4 % 0.0-2.0 N code = IG%) LYMPHOCYTE % (test code = LY%) 18.3 % 20.5-45.5 L MONOCYTE % (test code = MO%) 10.6 % 5.5-11.7 N EOSINOPHIL % (test code = EO%) 0.2 % 0.9-2.9 L BASOPHIL % (test code = BA%) 0.2 % 0.2-1.0 N NUCLEATED RBC % (test code = 0.0 % 0-1.0 N NRBC%) NEUTROPHIL # (test code = NT#) 5.90 x10 3/uL 2.2-4.8 H IMMATURE GRANULOCYTE # (test 0.03 x10 3/uL 0-0.03 N code = IG#) LYMPHOCYTE # (test code = LY#) 1.54 x10 3/uL 1.3-2.9 N MONOCYTE # (test code = MO#) 0.89 x10 3/uL 0.3-0.8 H EOSINOPHIL # (test code = EO#) 0.02 x10 3/uL 0.0-0.2 N BASOPHIL # (test code = BA#) 0.02 x10 3/uL 0.0-0.1 N COVID 19 Asymptomatic IH [id number] 10:12:00 Test Item Value Reference Range Interpretation Comments COVID 19 Asymptomatic IH AG (test POSITIVE Negative A code = COVNONPUIAG) [id number] 04:40:00 Test Item Value Reference Range Interpretation Comments GLUBED (test code = GLUBED) 143 MG/DL 74-106 H [id number] 21:10:00 Test Item Value Reference Range Interpretation Comments GLUBED (test code = GLUBED) 227 MG/DL 74-106 H [id number] 17:30:00 Test Item Value Reference Range Interpretation Comments GLUBED (test code = GLUBED) 200 MG/DL 74-106 H [id number] 15:00:00 Test Item Value Reference Range Interpretation Comments GLUBED (test code = GLUBED) 276 MG/DL 74-106 H [id number] 06:53:00 Test Item Value Reference Range Interpretation Comments GLUBED (test code = GLUBED) 190 MG/DL 74-106 H VITAMIN [id number] 05:36:00 Test Item Value Reference Range Interpretation Comments VITAMIN B12 (test code 577 pg/mL 239-931 N = VITB12) *A positive bias m ay occur for patie nts taking BIOTINsupplemen ts. [id number] 22:16:00 Test Item Value Reference Range Interpretation Comments GLUBED (test code = GLUBED) 281 MG/DL 74-106 H [id number] 17:43:00 Test Item Value Reference Range Interpretation Comments GLUBED (test code = GLUBED) 172 MG/DL 74-106 H [id number] 13:08:00 Test Item Value Reference Range Interpretation Comments GLUBED (test code = GLUBED) 174 MG/DL 74-106 H [id number] 06:52:00 Test Item Value Reference Range Interpretation Comments GLUBED (test code = GLUBED) 168 MG/DL 74-106 H BASIC METABOLIC [id number] 05:22:00 Test Item Value Reference Range Interpretation Comments SODIUM (test code = 136 mmol/L 137-145 L NA) POTASSIUM (test code 3.1 mmol/L 3.4-5.0 L = K) CHLORIDE (test code = 101 mmol/L 98-107 N CL) CARBON DIOXIDE (test 24 mmol/L 22-30 N code = CO2) GLUCOSE (test code = 150 mg/dL 74-106 H GLU) BLOOD UREA NITROGEN 16 mg/dL 9-20 N (test code = BUN) GLOMERULAR FILTRATION 99 >60 The es timated RATE (test code = glomerular filtration GFR) rate is compute d usingpatient ra ce, age (>18), sex, and serum creatinine. If anyof the needed data elements are mi ssing the Laboratory cannot compute an doroteo mation of the glomerul ar filtration rate . CREATININE (test code 0.8 mg/dL 0.7-1.3 N = CREAT) CALCIUM (test code = 8.3 mg/dL 8.4-10.2 L CA) HGBA1C - GLYCOSYLATED [id number] 05:14:00 Test Item Value Reference Range Interpretation Comments GLYCOSYLATED 7.4 % 0-5.9 H Current guideli tisha recommend HEMOGLOBIN (HA1C) a treatmen t goal of <7% (test code = GLYHGB) fordiab etic patients. A1c may be overesti mated in diabeticpatient s exhibiting poor control an d who are alsoheterozygou s or homozygous for HgbS or HgbC. Totalglycohemo globin is a better indicato r of diabetic control inpatie nts with these hemoglobi n variants. CBC W/AUTO [id number] 04:54:00 Test Item Value Reference Range Interpretation Comments WHITE BLOOD CELL (test code = 8.7 x10 3/uL 5.0-12.0 N WBC) RED BLOOD CELL (test code = 4.46 x10 6/uL 4.70-6.10 L RBC) HEMOGLOBIN (test code = HGB) 14.4 g/dL 14.0-18.0 N HEMATOCRIT (test code = HCT) 42.2 % 37.0-49.0 N MEAN CELL VOLUME (test code = 95 fL 80-94 H MCV) MEAN CELL HGB (test code = MCH) 32.3 pg 27-31 H MEAN CELL HGB CONCENTRATION 34.1 g/dL 33-37 N (test code = MCHC) RED CELL DISTRIBUTION WIDTH 13.3 % 11.5-15.5 N (test code = RDW) PLATELET COUNT (test code = 149 x10 3/uL 130-400 N PLT) MEAN PLATELET VOLUME (test code 11.9 fL 9.4-16.4 N = MPV) NEUTROPHIL % (test code = NT%) 69.8 % 43-65 H IMMATURE GRANULOCYTE % (test 0.5 % 0.0-2.0 N code = IG%) LYMPHOCYTE % (test code = LY%) 21.5 % 20.5-45.5 N MONOCYTE % (test code = MO%) 8.0 % 5.5-11.7 N EOSINOPHIL % (test code = EO%) 0.1 % 0.9-2.9 L BASOPHIL % (test code = BA%) 0.1 % 0.2-1.0 L NUCLEATED RBC % (test code = 0.0 % 0-1.0 N NRBC%) NEUTROPHIL # (test code = NT#) 6.08 x10 3/uL 2.2-4.8 H IMMATURE GRANULOCYTE # (test 0.04 x10 3/uL 0-0.03 H code = IG#) LYMPHOCYTE # (test code = LY#) 1.87 x10 3/uL 1.3-2.9 N MONOCYTE # (test code = MO#) 0.70 x10 3/uL 0.3-0.8 N EOSINOPHIL # (test code = EO#) 0.01 x10 3/uL 0.0-0.2 N BASOPHIL # (test code = BA#) 0.01 x10 3/uL 0.0-0.1 N [id number] 22:16:00 Test Item Value Reference Range Interpretation Comments GLUBED (test code = GLUBED) 120 MG/DL 74-106 H [id number] 17:03:00 Test Item Value Reference Range Interpretation Comments GLUBED (test code = GLUBED) 252 MG/DL 74-106 H [id number] 13:25:00 Test Item Value Reference Range Interpretation Comments GLUBED (test code = GLUBED) 227 MG/DL 74-106 H [id number] 05:41:00 Test Item Value Reference Range Interpretation Comments GLUBED (test code = GLUBED) 239 MG/DL 74-106 H [id number] 19:35:00 Test Item Value Reference Range Interpretation Comments GLUBED (test code = GLUBED) 365 MG/DL 74-106 H [id number] 18:57:00 Test Item Value Reference Range Interpretation Comments AMMONIA (test code = AMM) < 9 umol/L 9-30 L UA RFLX MICR CULT IF [id number] 18:52:00 Test Item Value Reference Range Interpretation Comments UA COLOR (test code Straw Yellow = COLU) UA APPEARANCE (test Clear Clear code = APPU) UA GLUCOSE DIPSTICK >=500 (3+) Negative A (test code = DGLUU) UA BILIRUBIN Negative Negative DIPSTICK (test code = BILU) UA KETONE DIPSTICK 15 (1+) mg/dL Negative A (test code = KETU) UA SPECIFIC GRAVITY 1.014 <1.030 (test code = SGU) UA BLOOD DIPSTICK 1+ Negative A (test code = JERMAINE) UA PH DIPSTICK (test 5.0 5.0-8.0 code = MEHNAZ) UA PROTEIN DIPSTICK NEGATIVE mg/dL Negative (test code = PROU) UA UROBILINOGEN Negative mg/dL Negative DIPSTICK (test code = URO) UA NITRITE DIPSTICK Negative Negative (test code = MARIAA) UA LEUKOCYTE NEGATIVE Negative ESTERASE DIPSTICK (test code = LEUU) UA WBC (test code = 0-3 /HPF See_Comment <10 WBC/ HPF = WBCUR) PYURIA ABSENT URINE CULTURE NOT INDICATED [Automated message] The system which generated this result transmit chen reference range : <4-5. The reference range was not used to interpret this result as normal/abnormal . UA RBC (test code = 0-3 /HPF See_Comment [Automa chen RBCU) message] The system which generated this result transmit chen reference range : <4-5. The reference range was not used to interpret this result as normal/abnormal . UA BACTERIA (test None /HPF None-Rare code = BACU) UA SQUAMOUS CELLS 0-5 (RARE) /HPF See_Comment [Autom ated (test code = SQU) message] T he system which generated this result transmit chen reference range : 0-5 (RARE). The reference range was not used to interpret this result as normal/abnormal . Indication for culture: Dysuria/FrequencySOURCE OF URINE: CLEAN CATCH- CTA CHEST FOR [id number] 17:16:00 [facility] 1940 Sex: M FAX: Gumaro Conner MD [phone] [place]: St: ADM Name: SIMON BRANDT [facility] [place] : 1940 Age/S: 80/M [address] Unit: [id number] Loc: [address] [place] [address] Phys: Gumaro Bentley MD Acct: [id number] Dis Date: Status: ADM IN PHONE #: [phone] Exam Date: 02/16/2021 1700 FAX #: [phone] Reason: Rule out PE EXAMS: CPT CODE: [id number] [place] [address] LOCATION: Q15 HISTORY: 80-year-old male with pneumonia. Clinical concern is a pulmonary embolism. COMMENT: Axial imaging the patient's chest was obtained from the thoracic inlet to the upper abdomen with IV contrast utilizing pulmonary embolism protocol. Soft tissue and lung window imageswere submitted in the axial plane. Coronal and sagittal soft tissue reconstructions were included. A chest x-ray obtained concurrently but reported separately is available for comparison. CONTRAST: 100 mL of Isovue 370 nonionic contrast was injected into a right arm vein. Serum creatinine level was 0.9, and the estimated GFR was greater than 60 mL/m. One or more of the following dose reduction techniques were used: Automated exposure control, adjustment of the mA and/or kV according to patient size, and/or utilization of iterative reconstruction technique. DLP: 497.61 mGy-cm FINDINGS: Contrast enhancement of the pulmonary arteries is suboptimal. No suspicious filling defects are seen in the visualized pulmonary arteries. The thoracic aorta demonstrates no evidence of aneurysms or dissections. The great vessels are unremarkable. The cardiac silhouette is unremarkable. A small hiatal hernia is seen. The thoracicinlet, chest wall, and visualized upper abdomen are unremarkable. The lungs demonstrate several low foci of groundglass opacity, concerning for Covid-19 pneumonia. No pneumothoraces are seen and no pleural effusions are seen. PAGE 1 Signed Report (CONTINUED) FAX: Gumaro Conner MD [phone] [place]: St: ADM -- Name: SIMON BRANDT [facility] [place] : 1940 Age/S: 80/M [address] Unit: [id number] Loc: [address] [place] [address] Phys: Gumaro Bentley MD Acct: [id number] Dis Date: Status: ADM IN PHONE #: [phone] Exam Date: 02/16/20211699 FAX #: [phone] Reason: Rule out PE EXAMS: CPT CODE: [id number] [place] [address] <Continued> IMPRESSION: There is no evidence for pulmonary embolism in this CT study of the chest. Multiple groundglass opacities are seen in the lungs, concerning for Covid-19 pneumonia. at 1716 Reported and signed by: Chavo Knight MD CC: Gumaro Bentley MD Technologist: DEIDRA Pool Trnscrd Dt/Tm: 02/16/2021 (7862) [email or web address] Orig Print D/T: S: 02/16/2021 (9939 PAGE 2 Signed ReportTHYROID STIMULATING [id number] 17:08:00 Test Item Value Reference Range Interpretation Comments THYROID STIMULATING 0.355 mIU/L 0.465-4.68 L HORMONE (test code = TSH) A positive b ias may occur for patients taking BIOTINsupplemen ts.* - XR CHEST 1 [id number] 16:57:00 [facility] 1940 Sex: M FAX: Gumaro Conner MD [phone] [place]: St: ADM FAX: Jaden King MD [phone] Name: SIMON BRANDT [facility] : 1940 Age/S: 80/M [address] Unit #: [id number] Loc: [address] [place] [address] Phys: Jaden Oliva MD Acct: [id number] Dis Date: Status: ADM IN PHONE #: [phone] Exam Date: 02/16/2021 [facility] FAX #: [phone] Reason: pnuemonia EXAMS: CPT CODE: [id number] XR CHEST 1 V 06240 Chest Radiograph History: pneumonia Comparison: None at this time Location: [facility] Two frontal views of the chest are submitted. The heart is within normal limits in size. Pulmonary vasculature is unremarkable. There are calcified granulomas in the left lung. The calcified granulomas are superimposed over ribsand left scapula, making evaluation of this area limited. There are minimal patchy opacities in the lung bases bilaterally. The bones appear unremarkable. IMPRESSION: There are minimal patchy opacities in the lung bases bilaterally. This could be due to atelectasis or pneumonia. at 1657 Reported andsigned by: Tre Vaughn MD CC: Gumaro Bentley MD; Jaden Oliva MD Technologist: GLEN KNIGHTndalbina Date/Time/By: 02/16/2021 (6530) : By: [facility] PAGE 1 Signed Report FAX: Gumaro Conner MD [phone] [place]: St: ADM FAX: Jaden Dave MD [phone] Name: SIMON BRANDT [facility] : 1940 Age/S: 80/M [address] Unit #: [id number] Loc: [place], [place] [address] Phys: Jaden Oliva MD Acct: [id number] DisDate: Status: ADM IN PHONE #: [phone] Exam Date: 02/16/2021 1640 FAX #: [phone] Reason: pnuemonia EXAMS: CPT CODE: [id number] XR CHEST 1 V 32168 <Continued> Orig Print D/T:S: 02/16/2021 (2918) PAGE 2 Signed ReportT4 [id number] 12:44:00 Test Item Value Reference Range Interpretation Comments T4 FREE (test code = T4F) 0.99 ng/dL 0.78-2.19 N VITAMIN [id number] 12:29:00 Test Item Value Reference Range Interpretation Comments VITAMIN B12 (test code 415 pg/mL 239-931 N = VITB12) *A positive bias m ay occur for patie nts taking BIOTINsupplemen ts. TSH REFLEX TO [id number] 12:29:00 Test Item Value Reference Range Interpretation Comments TSH REFLEX TO FT4 0.365 MIU/L 0.465-4.68 L (test code = TSHREFLEX) *A positive bias m ay occur for patie nts taking BIOTINsupplemen ts. CARDIAC ENZYMES [id number] 12:17:00 Test Item Value Reference Range Interpretation Comments TROPONIN-I < 0.012 ng/mL 0.012-0.033 L (test code = TROPI) Catherine hawley be advised of the updated reference range s for the new Chemistry instrumentation . * * VITROS TROPONIN I CRITERIANORM AL PATIENT W/O CIRCULATING TNI: 0.012-0.033 ng/mLCIRCULATIN G TNI PRESENT: 0.034- 0.119 ng/mL(MAY BE AT RISK OF AMI)AMI DIAGNOS TIC CUTOFF: >/= 0.1 20 ng/mL~~~~~~~~~~ ~~~~~~~~~~ ~~~~~~~~~~~~~~~ ~~~~~~~~~~ ~~~~~~~~~~~~~~T he use of serial sampling and testing protoco l is arecommended pr actice.An elevated tropon in level alone is often not sufficient manriquez iagnosis of myocardial i nfarction. Troponin result s obtained by different as says may vary.Evaluation of the extent of myoca rdial damage based on increase of troponin wou ld be valid only if similarmethodol ogy is used.~~~~~~~~~~ ~~~~~~~~~~ ~~~~~~~~~~~~~~~ ~~~~~~~~~~ ~~~~~~~~~~~~~~ A POSITIVE BIAS M AY OCCUR FOR PATIENTS TAKING BIOTIN SUPPLEMENTS~~~~ ~~~~~~~~~~ ~~~~~~~~~~~~~~~ ~~~~~~~~~~ ~~~~~~~~~~~~~~~ ~~~~~ Spec Comments: Cancel third set if POC Troponin completed in ED VITAMIN [id number] 12:14:00 Test Item Value Reference Range Interpretation Comments VITAMIN B12 (test code = VITB12) pg/mL 239-931 TSH REFLEX TO [id number] 12:14:00 Test Item Value Reference Range Interpretation Comments TSH REFLEX TO FT4 0.365 MIU/L 0.465-4.68 L (test code = TSHREFLEX) *A positive bias m ay occur for patie nts taking BIOTINsupplemen ts. [id number] 12:08:00 Test Item Value Reference Range Interpretation Comments D-DIMER (test 5862 ng/mLFEU 0-500 HH THE DDIMER ME THOD IS USED code = IN THE EXCLUSIO N OF DEEP DDIMER) VEINTHROMBOSIS AND/OR PULMONARY EMBOL ISM AND THE CLINICAL CUT-OF F VALUE FOR EXCLUSION (500 NG/ML FEU) OF THESE CONDIT IONSIS VALIDATED BY E ABSTRACT CHECKER OF THE METHOD. A NEGATIVE DDIM ER RESULT WHEN COMBINED W ITH A CLINICALASSESSM ENT OF LOW PRETEST PROBABI LITY HAS BEEN SHOWN TO H AVEA HIGH NEGATIVE PREDIC TIVE VALUE OF DVT OR PE. D -DIMER VALUES >500 ng/ mL ARE NOT DIAGNOSTIC FOR DVT,PEOR DIC WITHOUT OTHER C ONFIRMATORY TESTS AND APPROPRIATECLIN ICAL EVALUATIONS. [id number] 11:21:00 Test Item Value Reference Range Interpretation Comments GLUBED (test code = GLUBED) 203 MG/DL 74-106 H BASIC METABOLIC [id number] 05:43:00 Test Item Value Reference Range Interpretation Comments SODIUM (test code = 140 mmol/L 137-145 N NA) POTASSIUM (test code 4.4 mmol/L 3.4-5.0 N = K) CHLORIDE (test code = 103 mmol/L 98-107 N CL) CARBON DIOXIDE (test 24 mmol/L 22-30 N code = CO2) GLUCOSE (test code = 187 mg/dL 74-106 H GLU) BLOOD UREA NITROGEN 24 mg/dL 9-20 H (test code = BUN) GLOMERULAR FILTRATION 87 >60 The es timated RATE (test code = glomerular filtration GFR) rate is compute d usingpatient ra ce, age (>18), sex, and serum creatinine. If anyof the needed data elements are mi ssing the Laboratory cannot compute an doroteo mation of the glomerul ar filtration rate . CREATININE (test code 0.9 mg/dL 0.7-1.3 N = CREAT) CALCIUM (test code = 8.0 mg/dL 8.4-10.2 L CA) LIPID PROFILE (CORONARY RISK)2021-02-16 05:43:00 Test Item Value Reference Range Interpretation Comments TRIGLYCERIDES (test 83 mg/dL TRIGLYCE RIDES code = TRIG) REFERENCE RANGE:Normal: < 150 mg/dLBorderline High: 150-199 mg/dLHi gh: 200-499 mg/dLVe ry High: >=500 mg/ dL CHOLESTEROL (test 104 mg/dL CHOLESTERO L REFERENCE code = CHOL) RANGE:DESIRABLE : < 200 mg/dLBORDER LINE: 200-239 mg/dLHI GH: >=240 mg/dL HDL CHOLESTEROL (test 31 mg/dL 40-59 L code = HDL) LIPOPROTEIN LDL (test 50.80 mg/dL 32-99 N code = LDLC) CORONARY RISK FACTOR 3.35 (test code = RISK) CHOL/HDL RISK MALE: 1/2 AVG 3.43 FEMALE: 1/2 AV G 3.27 AVG 4.97 AVG 4.44 2X AVG 9.55 2X AVG 7.05 3X AVG 23. 39 3X AVG 11.04~~~~~~~~~~ ~~~~~~ ~~~~~~~~~~~~~~~ ~~~~~~ ~~~~~~~~~~~~~~~ ~~~~~~ ~~National Cholesterol Edu cation (NCEP) Guidelines:~~~~ ~~~~~~ ~~~~~~~~~~~~~~~ ~~~~~~ ~~~~~~~~~~~~~~~ ~~~~~~ ~~~~~~~~ HDL Cholesterol<4 0mg/dL : HDL Cholester ol (Major risk fac tor for CHD)>60mg/d L: HDL Cholesterol (Ne gative risk factor for CHD)40-59mg/dL: Borderline Risk LDL Cholesterol<1 00mg/d L: Desirable LD L-C [id number] 0-159m g/dL: Borderlin e High Risk LDL-C [id number] 0-189m g/dL: High risk LDL-C concentration H DL-LDL Cholesterol is affected by a n umber of factors such as smoking, age an d sex.~~~~~~~~~~~ ~~~~~~ ~~~~~~~~~~~~~~~ ~~~~~~ ~~~~~~~~~~~~~~~ ~~~~~~ ~ LIVER FUNCTION [id number] 05:43:00 Test Item Value Reference Range Interpretation Comments TOTAL PROTEIN (test 7.2 g/dL 6.3-8.2 N code = PROT) "A positive bias may occur for patients taking Eltrombopag(a b one marrow stimulan t used to treat thrombocy topenia andaplastic anemia)." ALBUMIN (test code = 3.8 g/dL 3.5-5.0 N ALB) BILIRUBIN TOTAL 0.4 mg/dL 0.2-1.3 N "A positive bias may (test code = BILT) occur for patients taking Eltrombo pag(a bone marrow sti mulant used to treat thrombocytopeni a andaplastic ane justo)." BILIRUBIN CONJUGATED 0 mg/dL 0-0.3 N "A posi tive bias may (test code = BILCON) occur f or patients taking Eltrombo pag(a bone marrow sti mulant used to treat thrombocytopeni a andaplastic ane justo)." CON JUGATED BILIRUBIN IS TH E REPLACEMENT ASS AY FOR DIRECTBILIRUBIN . BILIRUBIN 0.1 mg/dL 0-1.1 N UNCONJUGATED (test code = BILUNC) SGOT/AST (test code 38 U/L 15-46 N = AST) SGPT/ALT (test code 29 U/L 0-34 N = ALT) ALKALINE PHOSPHATASE 37 U/L 38-126 L (test code = ALKP) C REACTIVE [id number] 05:43:00 Test Item Value Reference Range Interpretation Comments C REACTIVE PROTEIN (test code = 27.4 mg/L 0-9 H CRP) BASIC METABOLIC [id number] 05:36:00 Test Item Value Reference Range Interpretation Comments SODIUM (test code = 140 mmol/L 137-145 N NA) POTASSIUM (test code 4.4 mmol/L 3.4-5.0 N = K) CHLORIDE (test code = 103 mmol/L 98-107 N CL) CARBON DIOXIDE (test 24 mmol/L 22-30 N code = CO2) GLUCOSE (test code = 187 mg/dL 74-106 H GLU) BLOOD UREA NITROGEN 24 mg/dL 9-20 H (test code = BUN) GLOMERULAR FILTRATION 87 >60 The es timated RATE (test code = glomerular filtration GFR) rate is compute d usingpatient ra ce, age (>18), sex, and serum creatinine. If anyof the needed data elements are mi ssing the Laboratory cannot compute an doroteo mation of the glomerul ar filtration rate . CREATININE (test code 0.9 mg/dL 0.7-1.3 N = CREAT) CALCIUM (test code = 8.0 mg/dL 8.4-10.2 L CA) LIPID PROFILE (CORONARY RISK)2021-02-16 05:36:00 Test Item Value Reference Range Interpretation Comments TRIGLYCERIDES (test 83 mg/dL TRIGLYCE RIDES code = TRIG) REFERENCE RANGE:Normal: < 150 mg/dLBorderline High: 150-199 mg/dLHi gh: 200-499 mg/dLVe ry High: >=500 mg/ dL CHOLESTEROL (test code 104 mg/dL BERYL STEROL REFERENCE = CHOL) RANGE:DESIRABLE : < 200 mg/dLBORDERLINE : 200-239 mg/dLHI GH: >=240 mg/dL HDL CHOLESTEROL (test 31 mg/dL 40-59 L code = HDL) LIPOPROTEIN LDL (test mg/dL 32-99 code = LDLC) CORONARY RISK FACTOR 3.35 (test code = RISK) CHOL/HDL RISK MALE: 1/2 AVG 3.43 FEMALE: 1/2 AV G 3.27 AVG 4.97 AVG 4.44 2X AVG 9.55 2X AVG 7.05 3X AVG 23.39 3X AVG 11.04~~~~~~~~~~ ~~~~~~~ ~~~~~~~~~~~~~~~ ~~~~~~~ ~~~~~~~~~~~~~~~ ~~~~~~N ational Cholest betina Education (NCEP ) Guidelines:~~~~ ~~~~~~~ ~~~~~~~~~~~~~~~ ~~~~~~~ ~~~~~~~~~~~~~~~ ~~~~~~~ ~~~~~ HDL Cholesterol<4 0mg/dL: HDL Cholesterol (Major risk factor for CHD)>60mg/dL: H DL Cholesterol (Ne gative risk factor for CHD)40-59mg/dL: Borderline Risk L DL Cholesterol<1 00mg/dL : Desirable LDL -C [id number] 0-159mg /dL: Borderline High Risk LDL-C [id number] 0-189mg /dL: High risk LDL-C concentration H DL-LDL Cholesterol is affected by a n umber of factors such as smoking, age an d sex.~~~~~~~~~~~ ~~~~~~~ ~~~~~~~~~~~~~~~ ~~~~~~~ ~~~~~~~~~~~~~~~ ~~~~~ LIVER FUNCTION [id number] 05:36:00 Test Item Value Reference Range Interpretation Comments TOTAL PROTEIN (test 7.2 g/dL 6.3-8.2 N code = PROT) "A positive bias may occur for patients taking Eltrombopag(a b one marrow stimulan t used to treat thrombocy topenia andaplastic anemia)." ALBUMIN (test code = 3.8 g/dL 3.5-5.0 N ALB) BILIRUBIN TOTAL 0.4 mg/dL 0.2-1.3 N "A positive bias may (test code = BILT) occur for patients taking Eltrombo pag(a bone marrow sti mulant used to treat thrombocytopeni a andaplastic ane justo)." BILIRUBIN CONJUGATED 0 mg/dL 0-0.3 N "A posi tive bias may (test code = BILCON) occur f or patients taking Eltrombo pag(a bone marrow sti mulant used to treat thrombocytopeni a andaplastic ane justo)." CON JUGATED BILIRUBIN IS TH E REPLACEMENT ASS AY FOR DIRECTBILIRUBIN . BILIRUBIN 0.1 mg/dL 0-1.1 N UNCONJUGATED (test code = BILUNC) SGOT/AST (test code 38 U/L 15-46 N = AST) SGPT/ALT (test code 29 U/L 0-34 N = ALT) ALKALINE PHOSPHATASE 37 U/L 38-126 L (test code = ALKP) C REACTIVE [id number] 05:36:00 Test Item Value Reference Range Interpretation Comments C REACTIVE PROTEIN (test code = 27.4 mg/L 0-9 H CRP) LACTIC [id number] 05:28:00 Test Item Value Reference Range Interpretation Comments LACTIC ACID (test code = LACT) 1.1 mmol/L 0.7-2.0 N CBC W/AUTO [id number] 05:19:00 Test Item Value Reference Range Interpretation Comments WHITE BLOOD CELL (test code = 4.6 x10 3/uL 5.0-12.0 L WBC) RED BLOOD CELL (test code = 4.22 x10 6/uL 4.70-6.10 L RBC) HEMOGLOBIN (test code = HGB) 13.7 g/dL 14.0-18.0 L HEMATOCRIT (test code = HCT) 39.5 % 37.0-49.0 N MEAN CELL VOLUME (test code = 94 fL 80-94 N MCV) MEAN CELL HGB (test code = MCH) 32.5 pg 27-31 H MEAN CELL HGB CONCENTRATION 34.7 g/dL 33-37 N (test code = MCHC) RED CELL DISTRIBUTION WIDTH 12.9 % 11.5-15.5 N (test code = RDW) PLATELET COUNT (test code = 157 x10 3/uL 130-400 N PLT) MEAN PLATELET VOLUME (test code 11.9 fL 9.4-16.4 N = MPV) NEUTROPHIL % (test code = NT%) 68.4 % 43-65 H IMMATURE GRANULOCYTE % (test 0.4 % 0.0-2.0 N code = IG%) LYMPHOCYTE % (test code = LY%) 27.1 % 20.5-45.5 N MONOCYTE % (test code = MO%) 4.1 % 5.5-11.7 L EOSINOPHIL % (test code = EO%) 0.0 % 0.9-2.9 L BASOPHIL % (test code = BA%) 0.0 % 0.2-1.0 L NUCLEATED RBC % (test code = 0.0 % 0-1.0 N NRBC%) NEUTROPHIL # (test code = NT#) 3.16 x10 3/uL 2.2-4.8 N IMMATURE GRANULOCYTE # (test 0.02 x10 3/uL 0-0.03 N code = IG#) LYMPHOCYTE # (test code = LY#) 1.25 x10 3/uL 1.3-2.9 L MONOCYTE # (test code = MO#) 0.19 x10 3/uL 0.3-0.8 L EOSINOPHIL # (test code = EO#) 0.00 x10 3/uL 0.0-0.2 N BASOPHIL # (test code = BA#) 0.00 x10 3/uL 0.0-0.1 N TROPONIN I [id number] 05:18:00 Test Item Value Reference Range Interpretation Comments TROPONIN I RAPID 0.01 ng/mL 0.00-0.079 N ISTAT (test code = TROPONIN I TROPIRAP) CRITERIA0.00-0. 08 ng/mL - Negative>0.08 n g/mL - Positive The us e of serial sampling and te sting protocol is are commended practice.An lalo vated troponin level alone is often not suffi cient fordiagnosis of myocardial infarction. Meena hinds results obtaine d by different assay s may vary.Evaluation of the extent of myoca rdial damage based on increase of troponin would be valid only if similar methodology is used.
[2021-02-27] MEDS ORDERED: D50W 25 GM/50 ML SYRINGE IV PRN (20:34)
[2021-02-27] MEDS ORDERED: GLUCAGON 1 MG/VIAL IM PRN (20:34)
[2021-02-27 20:59] LABS: Urine Appearance CLEAR (Clear); Urine Bilirubin NEGATIVE (Negative); Urine Blood NEGATIVE (Negative); Urine Color YELLOW (Yellow); Urine Glucose 3+ (Negative); Urine Protein NEGATIVE (Negative); Urine Specific Gravity >=1.030 (1.005-1.030); Urine Urobilinogen 0.2 mg/dL (0.2-1.0)
[2021-02-27] MEDS: NORTRIPTYLINE HCL 25 MG CAP PO SCH (21:00)
[2021-02-27] MEDS: MELATONIN 3 MG TABLET PO PRN (21:02)
[2021-02-27] MEDS: ROSUVASTATIN 10 MG TAB PO SCH (21:02)
[2021-02-27 21:21] LABS: Urine Bacteria <20 /HPF (NONE SEEN); Urine RBC <5 /HPF (NONE SEEN)
[2021-02-28] MEDS: METOPROLOL TAR 25 MG TAB PO SCH ×2 (05:25→17:02)
[2021-02-28 06:39] LABS: Absolute Lymphocytes (CBC) 1.7 K/uL (0.7-4.9); Basophils % 0.7 % (0-1.3); Hematocrit 38.9 % (39.6-49.0); Lymphocytes % 15.4 % (15.3-44.8); MPV 9.2 fL (7.6-11.3); RBC Red Blood Cell Count 4.15 M/uL (4.33-5.43)
[2021-02-28] MEDS: PANTOPRAZOLE 40MG TABLET PO SCH (07:06)
[2021-02-28 07:31] LABS: Albumin 2.5 g/dL (3.4-5.0); Magnesium 2.1 mg/dL (1.8-2.4); Potassium 3.7 mmol/L (3.5-5.1); Prealbumin 16.4 mg/dL (20-40)
[2021-02-28] MEDS: lisinopriL 20 MG TAB PO SCH (08:00)
[2021-02-28] MEDS: INSULIN -REGULAR HUMAN 50 UNIT/0.5 ML ML SQ SCH ×4 (08:42→20:04)
[2021-02-28] MEDS: SITAGLIPTIN PHOS 100 MG TAB PO SCH (08:43)
[2021-02-28] MEDS: METFORMIN HCL 500 MG TAB PO SCH ×2 (08:43→17:02)
[2021-02-28] MEDS: MULTIVITAMIN TAB PO SCH (08:43)
[2021-02-28] MEDS: DIPYRIDAMOLE/ASPIRIN CAP ER PO SCH ×2 (08:45→20:00)
[2021-02-28] MEDS: ENOXAPARIN 40 MG/0.4 ML SQ SCH ×3 (08:45→16:10)
[2021-02-28] MEDS ORDERED: PNEUMOCOCCAL VACCINE 0.5 ML IMVAC ONE (09:00)
--- NOTE | 2021-02-28 09:54 | P.RH.PN ---
Estimated Length of Stay: 14 Expected Discharge Date: 03/12/21 Discharge Disposition Plan: Home Family Support: Yes Senior Care Goal: Mobility, Transfers, Self Care Vital Signs: Last Vital Signs Temp 97.0 F 02/28/21 07:03 Pulse 65 02/28/21 07:03 Resp 18 02/28/21 07:03 BP 118/62 02/28/21 07:03 Pulse Ox 91 02/28/21 07:03 Laboratory: Laboratory Last Values WBC 10.80 K/uL (4.3-10.9) D 02/28/21 06:16 RBC 4.15 M/uL (4.33-5.43) L 02/28/21 06:16 Hgb 13.8 g/dL (13.6-17.9) 02/28/21 06:16 Hct 38.9 % (39.6-49.0) L 02/28/21 06:16 MCV 93.8 fL (80-100) 02/28/21 06:16 MCH 33.2 pg (27.0-35.0) 02/28/21 06:16 MCHC 35.4 g/dL (32.0-36.0) 02/28/21 06:16 RDW 12.9 % (12.1-15.2) 02/28/21 06:16 Plt Count 389 K/uL (152-406) D 02/28/21 06:16 MPV 9.2 fL (7.6-11.3) 02/28/21 06:16 Neutrophils % 73.0 % (41.7-73.7) 02/28/21 06:16 Lymphocytes % 15.4 % (15.3-44.8) 02/28/21 06:16 Monocytes % 10.5 % (3.3-12.3) 02/28/21 06:16 Eosinophils % 0.4 % (0-4.4) 02/28/21 06:16 Basophils % 0.7 % (0-1.3) 02/28/21 06:16 Absolute Neutrophils 7.9 K/uL (1.8-8.0) 02/28/21 06:16 Absolute Lymphocytes 1.7 K/uL (0.7-4.9) 02/28/21 06:16 Absolute Monocytes 1.1 K/uL (0.1-1.3) 02/28/21 06:16 Absolute Eosinophils 0.0 K/uL (0-0.5) 02/28/21 06:16 Absolute Basophils 0.1 K/uL (0-0.5) 02/28/21 06:16 Sodium 139 mmol/L (136-145) 02/28/21 06:16 Potassium 3.7 mmol/L (3.5-5.1) 02/28/21 06:16 Chloride 105 mmol/L (98-107) 02/28/21 06:16 Carbon Dioxide 29 mmol/L (21-32) 02/28/21 06:16 BUN 24 mg/dL (7-18) H 02/28/21 06:16 Creatinine 1.12 mg/dL (0.55-1.3) 02/28/21 06:16 Estimated GFR 63 mL/min (=/>90) L 02/28/21 06:16 Glucose 210 mg/dL (74-106) H 02/28/21 06:16 POC Glucose 311 mg/dL (65-120) H 02/27/21 20:02 Calcium 8.6 mg/dL (8.5-10.1) 02/28/21 06:16 Magnesium 2.1 mg/dL (1.8-2.4) 02/28/21 06:16 Albumin 2.5 g/dL (3.4-5.0) L 02/28/21 06:16 Prealbumin 16.4 mg/dL (20-40) L 02/28/21 06:16 Urine Color Yellow (Yellow) 02/27/21 20:00 Urine Appearance Clear (Clear) 02/27/21 20:00 Urine pH 6.0 (5.0-7.0) 02/27/21 20:00 Ur Specific [place] >=1.030 (1.005-1.030) 02/27/21 20:00 Glucose (UA)(Auto) 3+ (Negative) H 02/27/21 20:00 Urine Ketones Negative (Negative) 02/27/21 20:00 Urine Blood Negative (Negative) 02/27/21 20:00 Urine Nitrite Negative (Negative) 02/27/21 20:00 Urine Bilirubin Negative (Negative) 02/27/21 20:00 Urine Urobilinogen 0.2 mg/dL (0.2-1.0) 02/27/21 20:00 Ur Leukocyte Esterase Negative (Negative) 02/27/21 20:00 Urine RBC <5 /HPF (NONE SEEN) 02/27/21 20:00 Urine WBC <5 /HPF (<5) 02/27/21 20:00 Ur Squamous Epith Cells 5-10 /HPF (NONE SEEN) H 02/27/21 20:00 Urine Bacteria <20 /HPF (NONE SEEN) 02/27/21 20:00 Urine Culture Reflexed Not needed 02/27/21 20:00 Urine Total Protein Negative (Negative) 02/27/21 20:00 Weight: 142 lb Physician Update: Labs reviewed and stable. 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 He uses a hemiwalker and does well. 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 Please see the Rehabilitation Signature page for all necessary signatures.
--- NOTE | 2021-02-28 10:45 | HP ---
Date of Admission: 02/27/2021 Chief Complaint: Generalized weakness. History Of Present Illness: This is an 81-year-old male patient who came to our emergency room on 2020, and was diagnosed as having COVID-19 infection and was transferred to another hospital a s we did not have any beds available for COVID patients at our hospital. At this outside hospital, t he patient received remdesivir. He never required any ventilator support, and over a period of time, he started to recover from this COVID, but now has experienced significant generalized weakness and debility, so he was brought to our inpatient rehab floor yesterday. I was contacted this morning by rehab nurse regarding this admission and I saw him this morning. His daughter was present with him a t bedside. He does not have any fever or shortness of breath. No cough. Allergies: TO SULFA. Medications: Current medications list reviewed. According to outpatient office record, he is on asp irin 81 mg daily, Aggrenox 1 capsule 2 times a day, lisinopril 20 mg daily, metformin 850 mg 2 times a day, metoprolol tartrate 25 mg 2 times a day, Myrbetriq 50 mg daily, nortriptyline 25 mg daily in [facility], omeprazole 20 mg daily, rosuvastatin 10 mg daily, and Januvia 100 daily. Review of Systems: Constitutional: As mentioned above. 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 All other systems reviewed and negative. Past Medical History: Significant for hypertension, mixed hyperlipidemia, type 2 diabetes mellitus, carotid artery stenosis, benign prostatic hypertrophy, overactive bladder, prior history of stroke, g astroesophageal reflux disease, and coronary artery disease. Past Surgical History: Right carotid artery endarterectomy in 2004, carotid artery bypass surgery in 1995, and hernia repair in 2000. Family History: Significant for coronary artery disease, diabetes, stroke, asbestosis, and hypertens ion. Social History: Negative for smoking and alcohol use. Physical Examination: Vital Signs: Temperature 97, pulse 65, respiratory rate 18, blood pressure 118/62, oxygen saturation 91%. Height 5 feet 6 inches, weight 142 pounds. General: Awake, alert, oriented, not in distress. HEENT: Head atraumatic, normocephalic. Conjunctivae nonerythematous. Sclerae white. Mouth, no thr ush or edema noted. Ears/Nose, no mass, lesion, discharge noted. Neck: Supple. No JVD, lymph nodes, bruit, thyromegaly noted. Lungs: Bilateral good equal air entry. Clear to auscultation. No rhonchi. No rales. Heart: Normal heart sounds, no murmur or gallop. Abdomen: Soft, bowel sounds normal. No guarding, rigidity, tenderness, mass, hepatosplenomegaly, dis tention, or bruit noted. Extremities: No leg edema. No calf tenderness. Skin: No rash, ulcer, cellulitis. Lymphatics: No lymph node enlargement in neck, supraclavicular, infraclavicular region. Neuro: Left-sided hemiparesis, which is old and chronic finding. Chest: Unremarkable. External Genitalia: Deferred. Rectal: Deferred. Laboratory Data: White count 10.8, hemoglobin 13.8, platelets 389. His urinalysis 3+ glucose, 5-10 epithelial cells, otherwise urinalysis negative. Chemistry, sodium 139, potassium 3.7, chloride 105, bicarb 29, BUN 24, creatinine 1.12, glucose 210, albumin 2.5. Impression: 1.Generalized weakness. 2.Debility. 3.Diabetes mellitus. 4.Hypertension. 5.Mixed hyperlipidemia. 6.Stroke with left-sided hemiparesis. 7.Carotid artery stenosis. 8.Gastroesophageal reflux disease. 9.Benign prostatic hypertrophy. 10.Overactive bladder. Plan: Admit the patient to hospital for further evaluation and management of this problem. The mana ent is going to be admitted to rehab floor. We will consult Dr. Madrigal from rehab floor for therap y. We will continue his current medications. Add Lovenox for DVT prophylaxis. We will monitor fing erstick blood sugar with sliding scale insulin and continue his current oral hypoglycemic medications . Details and plan of treatment discussed with the patient and the patient's daughter, who was at be dside. I will see him tomorrow for followup. KARIN/MODL Voice ID: [id number]
--- NOTE | 2021-02-28 15:29 | R.HP ---
HISTORY AND PHYSICAL FACILITY: [facility] ENCOUNTER DATE AND TIME: 02/28/2021 15:09 (CDT) MR#: [id number] NAME SIMON BRANDT ADDRESS: [address] [place] [address]: [place] [id number] PHONE: DATE OF : 1940 AGE: 81 SSN# [id number] GENDER: Male MARITAL STATUS PRE-HOSPITAL LIVING SETTING 01 - Home (private home/apt. board/care, assisted living, [place] [facility], transitional living) PRE-HOSPITAL LIVING WITH Family/Relatives ENCOUNTER PHYSICIAN: Dr. Jamaal Madrigal M.D. REFERRING DOCTOR: FRANCHESCA MONTANO MD DATE OF ADMISSION: 02/27/2021 19:42 (CDT) REFERRING FACILITY [facility] HOME TYPE AND DETAILS: Type of home: single family house # of levels in the residence: 1 # of steps within the residence: 0 # of steps to enter the residence: 0 ONSET DATE: 02/16/2021 PRIMARY DIAGNOSIS-RELATED SURGERIES: N/A SECONDARY/COMORBID DIAGNOSES (TIERED): - Non-Tiered COVID-19 (U07.1) WEAKNESS AMS HISTORY OF PRESENT ILLNESS (HPI): Pt. is a 81 yo Right-handed male. On 02/16/2021 he was admitted to [facility] with diagnosis POST COVID-19. His impairment category is Pulmonary Disorders 10 - Other Pulmonary Disorders (10.9). Pre-morbidly, Pt. was independent/mod-I in Safety Awareness, Balance, Communication, and Self-Care; a nd he had good Endurance, Self-Care, Sphincter Control, and Transfers Control. Currently, he has deficits of Locomotion, Safety Awareness, Transfers Control, Self-Care, Communicati on, and Balance. Pt. is now referred to [facility] for acute in-patient rehabilitation in order to maximize patient's functional independence in activities of daily living, strength, ROM, and mobi lity. Patient has realistic goal of being discharged at assistance level 7-Ind to reside at Home with Fami ly/Relatives. MEDICATION ALLERGIES: No Known Drug Allergies (NKDA) ENVIRONMENTAL ALLERGIES: - Substance Allergies None Known - Other Allergies None Known PAST MEDICAL HISTORY: AMS COVID-19 (U07.1) WEAKNESS HISTORY OF CVA ( LEFT SIDE) HISTORY OF CORONARY DISEASE HYPERLIPIDEMIA SOCIAL HISTORY: - Home Living Family/Relatives REVIEW OF SYSTEMS: - Gen No Chills Fatigue No Fever - Eyes No Double Vision No itchiness - ENMT No Difficulty Swallowing - CVS No Chest Discomfort No Chest Pain Fatigue No Weight Gain - Resp No Cough No Shortness of Breath - GI Continent No Abdominal Pain No Constipation No Diarrhea - Continent No Kidney Pain No Painful Urination No Urinary Urgency - MSK No Joint Pain Muscle Cramps No Stiffness - Skin No Itching No Rash No Suspicious Lesions - Neuro Coordination Difficulty No Difficulty with Concentration No Memory Loss No Seizures Weakness - Psych No Anxiety No Depression No HIV Exposure No Persistent Infections No Seasonal Allergies - Endo No Cold/Heat Intolerance No Excessive Hunger No Excessive Thirst No Excessive Urination PHYSICAL EXAM - Gen Alert and awake Lying in bed No apparent distress Oriented to: person, time, and place - Skin No skin breakdown. Normacephalic - Eyes No abnormalities - ENMT No abnormalities - Neck No abnormalities - CVS RRR - Chest No abnormalities - Abd + bowel sounds - GI Soft Deferred - No abnormalities - Ext No significant edema - MSK 1/5 weakness in left upper and 4/5 weakness in left lower extremity. - Neuro 1/5 weakness in left upper and 4/5 weakness in left lower extremity. - Psych No abnormalities VITAL SIGNS Temperature: 97.0 F SBP/DBP: 118/62 Pulse: 60 Resp: 18 NURSING: - Shower allowing shower ACTIVITIES OOB only with supervision QI SCORES: - Self-Care A. Eating 03-Partial/moderate assistance B. Oral hygiene 03-Partial/moderate assistance C. Toileting hygiene 03-Partial/moderate assistance E. Shower/bathe self 02-Substantial/maximal assistance F. Upper body dressing 03-Partial/moderate assistance G. Lower body dressing 02-Substantial/maximal assistance H. Putting on/taking off footwear 88-Not attempted due to medical condition or safety concerns - Mobility A. Roll left and right 03-Partial/moderate assistance B. Sit to lying 03-Partial/moderate assistance C. Lying to sitting on side of bed 03-Partial/moderate assistance D. Sit to stand 03-Partial/moderate assistance E. Chair/hzm-rc-odmuh transfer 03-Partial/moderate assistance F. Toilet transfer 02-Substantial/maximal assistance G. Car transfer 88-Not attempted due to medical condition or safety concerns I. Walk 10 feet 02-Substantial/maximal assistance J. Walk 50 feet with two turns 88-Not attempted due to medical condition or safety concerns K. Walk 150 feet 88-Not attempted due to medical condition or safety concerns L. Walking 10 feet on uneven surfaces 88-Not attempted due to medical condition or safety concerns M. 1 step (curb) 88-Not attempted due to medical condition or safety concerns N. 4 steps 88-Not attempted due to medical condition or safety concerns O. 12 steps 88-Not attempted due to medical condition or safety concerns P. Picking up object 88-Not attempted due to medical condition or safety concerns R. Wheel 50 feet with two turns 88-Not attempted due to medical condition or safety concerns S. Wheel 150 feet 88-Not attempted due to medical condition or safety concerns - Bladder and Bowel Bladder continence Bowel continence - Endurance Fair - Balance Fair - Safety Awareness Fair CURRENT FUNC. DEFICITS: Self-Care, Mobility, Endurance, Balance, and Safety Awareness MEDICATIONS: - Other See attached MAR (Medication Administration Record) ASSESSMENT: Pt. is a 81 yo Right-handed male.On 02/16/2021 he was admitted to [facility] diagnosis POST COVID-19.His impairment category is Pulmonary Disorders 10 - Other Pulmonary Disor ders (10.9).Pre-morbidly, Pt. was independent/mod-I in Safety Awareness, Balance, Communication, and Self-Care; and he had good Endurance, Self-Care, Sphincter Control, and Transfers Control.Currently, he has deficits of Locomotion, Safety Awareness, Transfers Control, Self-Care, Communication, and Bal ance.Pt. is now referred to [facility] for acute in-patient rehabilitation in order to maximize patient's functional independence in activities of daily living, strength, ROM, and mobility.- Rehab Goal Patient has realistic goal of being discharged at assistance level 7-Ind to reside at Home with Fami ly/Relatives. - Physical Therapy Gait dysfunction - to improve, our physical therapists will perform initial evaluation of pt's status upon admission and devise an individualized program for Gait Training, and Wheel Chair mobility Inability to transfer - to improve, our physical therapists will perform initial evaluation of pt's s tatus upon admission and devise an individualized program for Bed mobility Need for home safety evaluation - to improve, our physical therapists will perform initial evaluation of pt's status upon admission and devise an individualized program for Home Evaluation Need in caregiver upon discharge - to improve, our physical therapists will perform initial evaluatio n of pt's status upon admission and devise an individualized program for Caregiver Training Edema - to improve, our physical therapists will perform initial evaluation of pt's status upon admi ssion and devise an individualized program for Elevation Training, and Lymphedema Therapy New precaution - to improve, our physical therapists will perform initial evaluation of pt's status u kayla admission and devise an individualized program for Patient precaution education Poor balance - to improve, our physical therapists will perform initial evaluation of pt's status upo n admission and devise an individualized program for Balance Training Weakness - to improve, our physical therapists will perform initial evaluation of pt's status upon ad mission and devise an individualized program for Aquatic Therapy, Neuromuscular Reeducation, and Stre ngthening Achieving independence - to improve, our physical therapists will perform initial evaluation of pt's status upon admission and devise an individualized program for Community Reintegration Activities - Occupational Therapy ADL deficits - to improve, our occupation therapists will perform initial evaluation of pt's status u kayla admission and devise an individualized program for Bathing, Bed mobility, Community Reintegration , Cooking, Dressing, Eating, Fine Motor Skills, Grooming, Homemaking, Kitchen Mobility, Laundry, Jesusita ent Education, Safety Awareness, Splinting - Positioning, Transfers(Toilet, Tub, Shower), and Wheel C hair Management Need for foster care therapist - to improve, our occupation therapists will perform initial evaluation of pt's s tatus upon admission and devise an individualized program for Caregiver Training Weakness - to improve, our occupation therapists will perform initial evaluation of pt's status upon admission and devise an individualized program for Aquatic Therapy, Balance, Endurance, UE ROM, and U E strengthening MEDICAL PLAN: - Diet Type Start Regular - Diet - Liquid Texture Start Regular - Tube Feed Start N/A - Other See attached MAR (Medication Administration Record) - Diet - Solid Texture Regular - Shower shower DISCHARGE PLAN: - Estimated Length of Stay (days) 11. - Consensus on plan Discharge plan has not been discussed with primary caregiver. Patient/Family is in agreement with the plan. Primary caregiver is in agreement with the plan. - Patient/Family Goals Return home independently. - Planned Living Setting Upon Discharge Home, to live with Family/Relatives. Transitional Living. SIGNATURE PANEL: (CDT)
--- NOTE | 2021-02-28 15:30 | PAPE ---
POST ADMISSION PHYSICIAN EVALUATION PATIENT: [facility] MR# [id number] REFERRING DOCTOR FRANCHESCA MONTANO MD EVALUATION DATE AND TIME 02/28/2021 15:29 (CDT) NAME SIMON BRANDT DATE OF 1940 AGE 81 PHONE N# [id number] GENDER male EVALUATING PHYSICIAN Dr. Jamaal Madrigal M.D. ADMISSION DIAGNOSIS: POST COVID-19 ONSET DATE 02/16/2021 SECONDARY/COMORBID DIAGNOSES TIERED: - Non-Tiered COVID-19 (U07.1) WEAKNESS AMS POST-ADMISSION FUNCTIONAL/MEDICAL STATUS: - Bladder Same accident frequency: 7-Ind - No accidents in the past 7 days - Bowel Same accident frequency: 7-Ind - No accidents in the past 7 days - Walking Same score based on distance walked: 0(N/A) - Wheelchair Same score based on distance traveled: 0(N/A) STATUS CHANGE EVALUATION: No change in Functional or Medical Status is identified compared with Pre-Admission screening. PATIENT NEEDS CLOSE MEDICAL SUPERVISION BY A REHABILITATION PHYSICIAN FOR: Coordination of Treatment Team Medical and Co-Morbidity Management PATIENT REQUIRES 24X7 REHAB NURSING FOR MEDICAL AND FUNCTIONAL MGT. OF THE FOLLOWING DEFICITS: Disease Management Medication Management Patient/Family Education Providing Safe Environment PATIENT REQUIRES INTENSIVE, COORDINATED INTERDISCIPLINARY APPROACH TO REHAB: Arranging Home Equipment/Services Discharge Planning Family Intervention/Training Street Car Mechanic/Case Management LIST OF IDENTIFIED AND POTENTIAL PROBLEMS: Alteration in leisure activities Bladder, Incontinence Bowel, Incontinence Infection, Actual or Potential Mobility Impaired Pain, Alteration in Comfort Self Care Deficit Skin Integrity, Actual or Potential Urinary Tract Infection (UTI), Actual or Potential PATIENT COULD BE AT RISK FOR COMPLICATIONS FROM ADVERSE MEDICAL CONDITIONS DUE TO HIS/HER COMORBIDITI ES AND THE RIGORS OF THE INTENSIVE REHABILLITATION PROGRAM. METHODS OR INTERVENTIONS TO AVOID COMPLIC ATIONS INCLUDE: - Infection Clinical staff to assess and manage the signs and symptoms of infection including fever, redness, war mth, etc. - Urinary Tract Infection - Falls Patient will be evaluated for Fall Precautions and will be placed on Fall Precautions as indicated pe r protocol. - Skin Breakdown Nursing will assess skin daily using assessment tool and will place on Skin Breakdown Precautions as indicated per protocol. - Pain Clinical staff may employ non-medication methods such as massage, distraction, decrease stimulus, etc . as needed. Clinical staff will assess patient's pain level every shift per protocol to assess and e nsure pain management effectiveness. Medications will be given and the pain level re-assessed. PRELIMINARY PLAN OF CARE: - Physical Therapy Patient needs Physical Therapy for a daily minimum of 1.5 hours at least 5 out of 7 days, to improve: Mobility, Strengthening, Transfers, Stretching, ROM, Endurance, Ability to manage stairs, Gait, and Balance. - Speech Therapy Patient needs Speech Therapy for a daily minimum of 0.5 hours at least 5 out of 7 days, to improve: S wallowing, Cognition, Language Skills, and Compensatory Strategies. - Rehabilitation Nursing Patient requires 24x7 Rehabilitation Nursing for: Pain Issues, Identifying and preventing risk factor s, Monitoring and reporting current medical conditions, Assisting with ambulation and transfer, Vidal ting with all ADL-s, Teaching patients about disease process and medications, Family teaching, Provid ing safe environment, Bowel and Bladder Issues, Skin Integrity, and Medication Management. Patient needs Street Car Mechanic and/or Case Management for: Discharge Planning, Arranging Home Equipmen t or Services, and Family Interventions. - Dietary and Nutrition Services Patient needs Dietary and Nutrition Services for: Adequate Nutrition, Nutritional Supplements, and Nu tritional Education. - Occupational Therapy Patient needs Occupational Therapy for a daily minimum of 1.5 hours at least 5 out of 7 days, to impr ove Activities of Daily Living, including: Eating, Grooming, Bathing, Dressing, Toileting, Toilet Tra nsfers, Community Reintegration, Higher functional activities, Adaptive Equipment, Splinting, Househo ld Tasks, and Other activities as determined. QI SCORES: - Self-Care A. Eating 03-Partial/moderate assistance B. Oral hygiene 03-Partial/moderate assistance C. Toileting hygiene 03-Partial/moderate assistance E. Shower/bathe self 02-Substantial/maximal assistance F. Upper body dressing 03-Partial/moderate assistance G. Lower body dressing 02-Substantial/maximal assistance H. Putting on/taking off footwear 88-Not attempted due to medical condition or safety concerns - Mobility A. Roll left and right 03-Partial/moderate assistance B. Sit to lying 03-Partial/moderate assistance C. Lying to sitting on side of bed 03-Partial/moderate assistance D. Sit to stand 03-Partial/moderate assistance E. Chair/mvo-xw-bsuiz transfer 03-Partial/moderate assistance F. Toilet transfer 02-Substantial/maximal assistance G. Car transfer 88-Not attempted due to medical condition or safety concerns I. Walk 10 feet 02-Substantial/maximal assistance J. Walk 50 feet with two turns 88-Not attempted due to medical condition or safety concerns K. Walk 150 feet 88-Not attempted due to medical condition or safety concerns L. Walking 10 feet on uneven surfaces 88-Not attempted due to medical condition or safety concerns M. 1 step (curb) 88-Not attempted due to medical condition or safety concerns N. 4 steps 88-Not attempted due to medical condition or safety concerns O. 12 steps 88-Not attempted due to medical condition or safety concerns P. Picking up object 88-Not attempted due to medical condition or safety concerns R. Wheel 50 feet with two turns 88-Not attempted due to medical condition or safety concerns S. Wheel 150 feet 88-Not attempted due to medical condition or safety concerns - Bladder and Bowel Bladder continence Bowel continence - Endurance Fair - Balance Fair - Safety Awareness Fair POTENTIAL FUNCTIONAL GOALS FOR PATIENT TO ACHIEVE BY DISCHARGE: - Safety Precaution Patient will remain free from falls or injury at time of discharge. - Bed Mobility Patient will perform bed mobility at 4-Nick level of assistance. - Transfers Patient will complete transfers from bed to chair at 4-Nick level of assistance. - Mobility Patient will ambulate 150 ft with 4-Nick level of assistance with RW. PATIENT REHAB POTENTIAL Annabel DOSSTON is able and expected to receive 3 hours of individualized therapy daily on at least 5 of every 7 days Ananbel BRANDT's prognosis for significant practical improvement within a reasonable period of time appe ars Good Expected level of measurable improvement will be of a practical value to Annabel BRANDT's functional cap acity or adaptations to impairments Has a viable Discharge Plan Medically appropriate; condition is sufficiently stable to participate in intensive rehab program DISCHARGE PLAN: - Estimated Length of Stay (days) 11. - Consensus on plan Discharge plan has not been discussed with primary caregiver. Patient/Family is in agreement with the plan. Primary caregiver is in agreement with the plan. - Patient/Family Goals Return home independently. - Planned Living Setting Upon Discharge Home, to live with Family/Relatives. Transitional Living. CONCLUSION ON REHABILITATION NECESSITY: I have evaluated patient's pre-admission functional status and, comparing it to the patient's post-ad mission functional status now, I conclude that the pre-admission assessment was accurate. Patient's c ondition on admission supports the medical necessity of admission to IR[facility]. It is safe to proceed with patient's therapy program. SIGNATURE PANEL: (CDT)
[2021-02-28] MEDS ORDERED: MAGNES/ALUMIN/SIMET 30ML UCUP PO PRN (18:03)
[2021-02-28] MEDS: ROSUVASTATIN 10 MG TAB PO SCH (20:03)
[2021-02-28] MEDS: GLUCERNA SHAKE 237 ML CAN PO SCH (20:04)
[2021-02-28] MEDS: DOCUSATE NA/SENNA CONC 1 TAB PO PRN (20:04)
[2021-02-28] MEDS: MELATONIN 3 MG TABLET PO PRN (20:04)
[2021-02-28] MEDS: NORTRIPTYLINE HCL 25 MG CAP PO SCH (21:00)
[2021-03-01] MEDS: METOPROLOL TAR 25 MG TAB PO SCH ×2 (05:10→17:39)
[2021-03-01 05:45] VITALS: BMI 21.7
[2021-03-01] MEDS: PANTOPRAZOLE 40MG TABLET PO SCH (06:23)
[2021-03-01] MEDS: INSULIN -REGULAR HUMAN 50 UNIT/0.5 ML ML SQ SCH ×4 (07:06→20:15)
[2021-03-01] MEDS: lisinopriL 20 MG TAB PO SCH (09:13)
[2021-03-01] MEDS: MULTIVITAMIN TAB PO SCH ×2 (09:13→09:14)
[2021-03-01] MEDS: METFORMIN HCL 500 MG TAB PO SCH ×2 (09:14→17:39)
[2021-03-01] MEDS: SITAGLIPTIN PHOS 100 MG TAB PO SCH (09:14)
[2021-03-01] MEDS: GLUCERNA SHAKE 237 ML CAN PO SCH ×2 (09:15→20:29)
[2021-03-01] MEDS: DIPYRIDAMOLE/ASPIRIN CAP ER PO SCH ×2 (09:21→20:00)
--- NOTE | 2021-03-01 11:19 | PN ---
Date of Progress Note: 03/01/2021 Subjective: The patient was seen this morning for followup. No new complaints or problems reported by the patient. He was working with physical therapy. When I saw him this morning, he did not sleep well last night and would like to have something to get some rest at night time. He also uses Rolai ds at home on a p.r.n. basis, which may be once a week or so and he would like to have that ordered i n place. Objective: Vital Signs: Reviewed. HEENT: Unremarkable. Lungs: Clear to auscultation. Heart: Sounds normal. Abdomen: Soft. Bowel sounds normal. No guarding, rigidity, tenderness, or distention. Extremities: No leg edema. Impression: 1.Diabetes mellitus. 2.Hypertension. 3.Hyperlipidemia. 4.Stroke with left-sided hemiparesis. Plan: We will continue current medications. Continue current physical therapy under guidance of Dr. Madrigal. Fingerstick blood sugar readings reviewed. We will continue Januvia and metformin per or sd. I will see him tomorrow for followup. KARIN/MODL Voice ID: [id number] Report ID: [id number]
[2021-03-01] MEDS ORDERED: CHLORTABS PO PRN (16:38)
[2021-03-01] MEDS: ENOXAPARIN 40 MG/0.4 ML SQ SCH (17:03)
[2021-03-01] MEDS: ROSUVASTATIN 10 MG TAB PO SCH (20:13)
[2021-03-01] MEDS: MELATONIN 3 MG TABLET PO PRN (20:24)
[2021-03-01] MEDS ORDERED: NORTRIPTYLINE HCL 25 MG CAP PO SCH (21:00)
[2021-03-02] MEDS: METOPROLOL TAR 25 MG TAB PO SCH ×2 (05:26→16:56)
[2021-03-02] MEDS: INSULIN -REGULAR HUMAN 50 UNIT/0.5 ML ML SQ SCH ×4 (07:30→21:00)
[2021-03-02] MEDS: PANTOPRAZOLE 40MG TABLET PO SCH (07:49)
[2021-03-02] MEDS ORDERED: MULTIVITAMIN TAB PO SCH (08:00)
[2021-03-02] MEDS: DIPYRIDAMOLE/ASPIRIN CAP ER PO SCH ×2 (09:22→20:00)
[2021-03-02] MEDS: SITAGLIPTIN PHOS 100 MG TAB PO SCH (09:23)
[2021-03-02] MEDS: METFORMIN HCL 500 MG TAB PO SCH (09:23)
[2021-03-02] MEDS: lisinopriL 20 MG TAB PO SCH (09:23)
[2021-03-02] MEDS: GLUCERNA SHAKE 237 ML CAN PO SCH ×2 (09:26→20:56)
--- NOTE | 2021-03-02 11:44 | PN ---
Date of Progress Note: 03/02/2021 Subjective: The patient was seen this morning for followup. He slept very well last night. Denies any complaints this morning. Objective: Vital Signs: Reviewed. HEENT: Examination unremarkable. Lungs: Clear to auscultation. Heart: Sounds normal. Abdomen: Soft, bowel sounds normal. No guarding, rigidity, tenderness, or distention. Extremities: No leg edema. Impression: 1.Debility. 2.Generalized weakness. 3.Stroke with left-sided hemiparesis. 4.Hypertension. 5.Diabetes mellitus. Plan: We will continue current medication. Continue home medications per order. The patient's fami ly want him to use his home medication supply, so I have advised nursing staff to go ahead and allow then to use home supply. Currently, he is on metformin 1000 mg twice a day, but at home he uses 850 mg 2 times a day, and we will continue metformin as he takes it at home along with other medications. I will see him tomorrow for followup. KARIN/MODL Voice ID: [id number] Report ID: [id number]
--- NOTE | 2021-03-02 14:22 | FAST ---
[employer] FORM SHIFT START DATE/TIME: 03/02/2021 07:00 (CDT) SHIFT END DATE/TIME: 03/02/2021 19:00 (CDT) NAME SIMON BRANDT DATE OF : 1940 DATE OF ADMISSION: 02/27/2021 19:42 (CDT) PHONE: AGE: 81 SSN# [id number] GENDER: Male ENCOUNTER PHYSICIAN: Dr. Jamaal Madrigal M.D. ADMISSION DIAGNOSIS: - Pulmonary Disorders 10 - Other Pulmonary Disorders (10.9) POST COVID-19. EATING: EATING - STEP 1: Does the patient complete the activity by him/herself with no assistance (physical, verbal/nonverbal cueing, setup/clean-up)? No. EATING - STEP 2: Does the patient need only setup/clean-up assistance from one helper? Yes. 1. [id number] ADMISSION PERFORMANCE: Setup or clean-up assistance CODE: 05 ORAL HYGIENE: ORAL HYGIENE - STEP 1: Does the patient complete the activity by him/herself with no assistance (physical, verbal/nonverbal cueing, setup/clean-up)? No. ORAL HYGIENE - STEP 2: Does the patient need only setup/clean-up assistance from one helper? Yes. 1. [id number] ADMISSION PERFORMANCE: Setup or clean-up assistance CODE: 05 TOILETING HYGIENE: TOILETING HYGIENE - STEP 1: Does the patient complete the activity by him/herself with no assistance (physical, verbal/nonverbal cueing, setup/clean-up)? No. TOILETING HYGIENE - STEP 2: Does the patient need only setup/clean-up assistance from one helper? Yes. 1. [id number] ADMISSION PERFORMANCE: Setup or clean-up assistance CODE: 05 BATHING: Not assessed/no information CODE: - DRESSING - UPPER BODY: DRESSING - UPPER BODY - STEP 1: Does the patient complete the activity by him/herself with no assistance (physical, verbal/nonverbal cueing, setup/clean-up)? No. DRESSING - UPPER BODY - STEP 2: Does the patient need only setup/clean-up assistance from one helper? Yes. 1. [id number] ADMISSION PERFORMANCE: Setup or clean-up assistance CODE: 05 DRESSING - LOWER BODY: DRESSING - LOWER BODY - STEP 1: Does the patient complete the activity by him/herself with no assistance (physical, verbal/nonverbal cueing, setup/clean-up)? No. DRESSING - LOWER BODY - STEP 2: Does the patient need only setup/clean-up assistance from one helper? Yes. 1. [id number] ADMISSION PERFORMANCE: Setup or clean-up assistance CODE: 05 PUTTING ON/TAKING OFF FOOTWEAR: FOOTWEAR - STEP 1: Does the patient complete the activity by him/herself with no assistance (physical, verbal/nonverbal cueing, setup/clean-up)? No. FOOTWEAR - STEP 2: Does the patient need only setup/clean-up assistance from one helper? Yes. 1. [id number] ADMISSION PERFORMANCE: Setup or clean-up assistance CODE: 05 ROLL LEFT AND RIGHT: ROLL LEFT AND RIGHT - STEP 1: Does the patient complete the activity by him/herself with no assistance (physical, verbal/nonverbal cueing, setup/clean-up)? No. ROLL LEFT AND RIGHT - STEP 2: Does the patient need only setup/clean-up assistance from one helper? Yes. 1. [id number] ADMISSION PERFORMANCE: Setup or clean-up assistance CODE: 05 SIT TO LYING: SIT TO LYING - STEP 1: Does the patient complete the activity by him/herself with no assistance (physical, verbal/nonverbal cueing, setup/clean-up)? No. SIT TO LYING - STEP 2: Does the patient need only setup/clean-up assistance from one helper? Yes. 1. [id number] ADMISSION PERFORMANCE: Setup or clean-up assistance CODE: 05 LYING TO SITTING: LYING TO SITTING ON SIDE OF BED - STEP 1: Does the patient complete the activity by him/herself with no assistance (physical, verbal/nonverbal cueing, setup/clean-up)? No. LYING TO SITTING ON SIDE OF BED - STEP 2: Does the patient need only setup/clean-up assistance from one helper? Yes. 1. [id number] ADMISSION PERFORMANCE: Setup or clean-up assistance CODE: 05 SIT TO STAND: SIT TO STAND - STEP 1: Does the patient complete the activity by him/herself with no assistance (physical, verbal/nonverbal cueing, setup/clean-up)? No. SIT TO STAND - STEP 2: Does the patient need only setup/clean-up assistance from one helper? Yes. 1. [id number] ADMISSION PERFORMANCE: Setup or clean-up assistance CODE: 05 TRANSFERS: BED, CHAIR: CHAIR/[id number] TRANSFER - STEP 1: Does the patient complete the activity by him/herself with no assistance (physical, verbal/nonverbal cueing, setup/clean-up)? No. CHAIR/[id number] TRANSFER - STEP 2: Does the patient need only setup/clean-up assistance from one helper? Yes. 1. [id number] ADMISSION PERFORMANCE: Setup or clean-up assistance CODE: 05 TRANSFER TOILET: TOILET TRANSFER - STEP 1: Does the patient complete the activity by him/herself with no assistance (physical, verbal/nonverbal cueing, setup/clean-up)? No. TOILET TRANSFER - STEP 2: Does the patient need only setup/clean-up assistance from one helper? Yes. 1. [id number] ADMISSION PERFORMANCE: Setup or clean-up assistance CODE: 05 TRANSFERS: CAR: Not assessed/no information CODE: - WALK 10 FEET: Not assessed/no information CODE: - 1 STEP (CURB): Not assessed/no information CODE: - PICKING UP OBJECT: Not assessed/no information CODE: - DOES THE PATIENT USE A WHEELCHAIR/SCOOTER? Q1. DOES THE PATIENT USE A WHEELCHAIR/SCOOTER?: Yes CODE: 1 WHEEL 50 FEET WITH TWO TURNS: WHEEL 50 FEET WITH TWO TURNS - STEP 1: Does the patient complete the activity by him/herself with no assistance (physical, verbal/nonverbal cueing, setup/clean-up)? No. WHEEL 50 FEET WITH TWO TURNS - STEP 2: Does the patient need only setup/clean-up assistance from one helper? Yes. 1. [id number] ADMISSION PERFORMANCE: Setup or clean-up assistance CODE: 05 INDICATE THE TYPE OF WHEELCHAIR/SCOOTER USED: RR1. INDICATE THE TYPE OF WHEELCHAIR/SCOOTER USED.: Manual CODE: 1 WHEEL 150 FEET: Not assessed/no information CODE: - INDICATE THE TYPE OF WHEELCHAIR/SCOOTER USED: SS1. INDICATE THE TYPE OF WHEELCHAIR/SCOOTER USED.: Manual CODE: 1 BLADDER AND BOWEL: H350. BLADDER CONTINENCE (3-DAY ASSESSMENT PERIOD): Always continent (no documented incontinence) CODE: 0 H400. BOWEL CONTINENCE (3-DAY ASSESSMENT PERIOD): Always continent CODE: 0 SIGNATURE PANEL: The following modified sections: 1. [id number] Admission Performance, 1. [id number] Admission Performance, 1. [id number] Admission Performance, 1. [id number] Admission Performance, 1. GB1512r Admission Performance, 1. [id number] Admission Performance, 1. [id number] Admission Performance, 1. [id number] Admission Performance , 1. [id number] Admission Performance, 1. [id number] Admission Performance, 1. [id number] Admission Performanc e, 1. [id number] Admission Performance, Q1. Does the patient use a wheelchair/scooter?, 1. [id number] Admis kasey Performance, RR1. Indicate the type of wheelchair/scooter used., Code, SS1. Indicate the type of wheelchair/scooter used., H350. Bladder Continence (3-day assessment period), H400. Bowel Continence (3-day assessment period) were [electronically] signed by Abhinav [email or web address] on WedMar 02 2021 14 :22:02 [facility]-0500 (Central Daylight Time)
[2021-03-02] MEDS ORDERED: CHLORPHENIRAMINE MALEATE 4 MG PO PRN (15:00)
[2021-03-02] MEDS: ENOXAPARIN 40 MG/0.4 ML SQ SCH (16:22)
[2021-03-02] MEDS: METFORMIN HCL 850 MG TAB PO SCH (16:24)
[2021-03-02] MEDS ORDERED: METFORMIN HCL 850 MG TAB PO SCH (17:00)
[2021-03-02] MEDS ORDERED: METFORMIN HYDROCHLORIDE PO SCH (17:00)
[2021-03-02] MEDS ORDERED: DIPYRIDAMOLE PO SCH (20:00)
[2021-03-02] MEDS ORDERED: DIPYRIDAMOLE/ASPIRIN CAP ER PO SCH (20:00)
[2021-03-02] MEDS: NORTRIPTYLINE HCL 25 MG CAP PO SCH (20:58)
[2021-03-02] MEDS: ROSUVASTATIN 10 MG TAB PO SCH (20:59)
[2021-03-02] MEDS: MIRABEGRON 50 MG PO SCH (20:59)
[2021-03-02] MEDS ORDERED: NORTRIPTYLINE HCL 25 MG CAP PO SCH (21:00)
[2021-03-02] MEDS ORDERED: ROSUVASTATIN 10 MG TAB PO SCH (21:00)
[2021-03-02] MEDS: MELATONIN 3 MG TABLET PO PRN (21:16)
[2021-03-03] MEDS: METOPROLOL TAR 25 MG TAB PO SCH (05:30)
[2021-03-03] MEDS: OMEPRAZOLE 20 MG PO SCH (07:25)
[2021-03-03] MEDS: INSULIN -REGULAR HUMAN 50 UNIT/0.5 ML ML SQ SCH ×4 (07:30→19:43)
[2021-03-03] MEDS ORDERED: PANTOPRAZOLE 40MG TABLET PO SCH (07:30)
[2021-03-03] MEDS: GLUCERNA SHAKE 237 ML CAN PO SCH ×2 (07:51→19:13)
[2021-03-03] MEDS: DIPYRIDAMOLE/ASPIRIN CAP ER PO SCH ×2 (07:52→19:15)
[2021-03-03] MEDS: [UNRECOGNIZED DRUG - OTHER] PO SCH (07:53)
[2021-03-03] MEDS: METFORMIN HCL 850 MG TAB PO SCH ×2 (07:53→17:07)
[2021-03-03] MEDS: MULTIVITAMIN PO SCH (07:53)
[2021-03-03] MEDS: lisinopriL 20 MG TAB PO SCH (07:55)
[2021-03-03] MEDS: SITAGLIPTIN PHOS 100 MG TAB PO SCH (07:56)
[2021-03-03] MEDS ORDERED: OMEPRAZOLE 20 MG PO SCH (08:00)
[2021-03-03] MEDS ORDERED: COMPLETE MULTIVITAMIN PO SCH (08:00)
[2021-03-03] MEDS ORDERED: NORTRIPTYLIN PO SCH (08:00)
[2021-03-03] MEDS ORDERED: MULTIVIT W/ MINERAL TAB PO SCH (08:00)
[2021-03-03] MEDS ORDERED: ROSUVASTATIN 10 MG PO SCH (08:00)
--- NOTE | 2021-03-03 14:54 | R.PN ---
PROGRESS NOTES ENCOUNTER DATE AND TIME: 03/03/2021 14:46 (CDT) NAME SIMON BRANDT DATE OF : 1940 DATE OF ADMISSION: 02/27/2021 19:42 (CDT) POST COVID-19SUBJECTIVE: Pt denied any depression. Pt denied any Shortness of Breath. CBC with differential is essential normal. Glucose 131 to 165. Ambulated 300' with contact guard assistance using a right hemiwalker. VITAL SIGNS Temperature: 97.1 F SBP/DBP: 119/58 Pulse: 67 Resp: 16 MEDICATION ALLERGIES: No Known Drug Allergies (NKDA) ENVIRONMENTAL ALLERGIES: - Substance Allergies None Known - Other Allergies None Known NURSING: - Shower allowing shower ACTIVITIES OOB only with supervision THERAPIES: - Dietary and Nutrition Adequate Nutrition. Nutritional Education. Nutritional Supplements. PHYSICAL EXAM - Gen Alert and awake Lying in bed No apparent distress Oriented to: person, time, and place - Skin No skin breakdown. Normacephalic - Eyes No abnormalities - ENMT No abnormalities - Neck No abnormalities - CVS RRR - Chest No abnormalities - Abd + bowel sounds - GI Soft Deferred - No abnormalities - Ext No significant edema - MSK 1/5 weakness in left upper and 4/5 weakness in left lower extremity. - Neuro 1/5 weakness in left upper and 4/5 weakness in left lower extremity. - Psych No abnormalities ASSESSMENT: Pt. is a 81 yo Right-handed male.On 02/16/2021 he was admitted to [facility] diagnosis POST COVID-19.His impairment category is Pulmonary Disorders 10 - Other Pulmonary Disor ders (10.9).Pre-morbidly, Pt. was independent/mod-I in Safety Awareness, Balance, Communication, and Self-Care; and he had good Endurance, Self-Care, Sphincter Control, and Transfers Control.Currently, he has deficits of Locomotion, Safety Awareness, Transfers Control, Self-Care, Communication, and Bal ance.Pt. is now referred to [facility] for acute in-patient rehabilitation in order to maximize patient's functional independence in activities of daily living, strength, ROM, and mobility.- Rehab Goal Patient has realistic goal of being discharged at assistance level 7-Ind to reside at Home with Fami ly/Relatives. MDM/PLAN: - Physical Therapy Gait dysfunction - to improve, our physical therapists will perform initial evaluation of pt's statu s upon admission and devise an individualized program for Gait Training, and Wheel Chair mobility Inability to transfer - to improve, our physical therapists will perform initial evaluation of pt's status upon admission and devise an individualized program for Bed mobility Need for home safety evaluation - to improve, our physical therapists will perform initial evaluatio n of pt's status upon admission and devise an individualized program for Home Evaluation Need in caregiver upon discharge - to improve, our physical therapists will perform initial evaluati on of pt's status upon admission and devise an individualized program for Caregiver Training Edema - to improve, our physical therapists will perform initial evaluation of pt's status upon admis kasey and devise an individualized program for Elevation Training, and Lymphedema Therapy New precaution - to improve, our physical therapists will perform initial evaluation of pt's status upon admission and devise an individualized program for Patient precaution education Poor balance - to improve, our physical therapists will perform initial evaluation of pt's status up on admission and devise an individualized program for Balance Training Weakness - to improve, our physical therapists will perform initial evaluation of pt's status upon a dmission and devise an individualized program for Aquatic Therapy, Neuromuscular Reeducation, and Str engthening Achieving independence - to improve, our physical therapists will perform initial evaluation of pt's status upon admission and devise an individualized program for Community Reintegration Activities - Occupational Therapy ADL deficits - to improve, our occupation therapists will perform initial evaluation of pt's status upon admission and devise an individualized program for Bathing, Bed mobility, Community Reintegratio n, Cooking, Dressing, Eating, Fine Motor Skills, Grooming, Homemaking, Kitchen Mobility, Laundry, Pat ient Education, Safety Awareness, Splinting - Positioning, Transfers(Toilet, Tub, Shower), and Wheel Chair Management Need for care center manager - to improve, our occupation therapists will perform initial evaluation of pt's status upon admission and devise an individualized program for Caregiver Training Weakness - to improve, our occupation therapists will perform initial evaluation of pt's status upon admission and devise an individualized program for Aquatic Therapy, Balance, Endurance, UE ROM, and UE strengthening - Other See attached MAR (Medication Administration Record) - Diet Type Continue Regular - Diet - Liquid Texture Continue Regular - Tube Feed Continue N/A - Diet - Solid Texture Continue Regular - Shower allowing shower FUNCTIONAL STATUS: UPDATED AT WEEKLY TEAM CONFERENCE - Bladder Same accident frequency: 7-Ind - No accidents in the past 7 days - Bowel Same accident frequency: 7-Ind - No accidents in the past 7 days - Walking Same score based on distance walked: 0(N/A) - Wheelchair Same score based on distance traveled: 0(N/A) FUNCTIONAL STATUS: - Self-Care A. Eating Ind B. Grooming Beulah C. Bathing Nick D. Dressing - Upper Nick E. Dressing - Lower modA F. Toileting Nick - Sphincter Control G. Bladder control Beulah H. Bowel control Beulah - Transfers Control I. Bed/Chair/Wheelchair Nick J. Toilet Nick K. Tub/Shower modA - Locomotion L. Walk/Wheelchair (B) Nick M. Stairs ADNO - Communication N. Comprehension (B) Beulah O. Expression (B) Beulah - Social Cognition P. Social Interaction Beulah Q. Problem Solving Beulah R. Memory Beulah - Endurance Fair - Balance Fair - Safety Awareness Fair QI SCORES: - Self-Care A. Eating 03-Partial/moderate assistance B. Oral hygiene 03-Partial/moderate assistance C. Toileting hygiene 03-Partial/moderate assistance E. Shower/bathe self 02-Substantial/maximal assistance F. Upper body dressing 03-Partial/moderate assistance G. Lower body dressing 02-Substantial/maximal assistance H. Putting on/taking off footwear 88-Not attempted due to medical condition or safety concerns - Mobility A. Roll left and right 03-Partial/moderate assistance B. Sit to lying 03-Partial/moderate assistance C. Lying to sitting on side of bed 03-Partial/moderate assistance D. Sit to stand 03-Partial/moderate assistance E. Chair/[id number] transfer 03-Partial/moderate assistance F. Toilet transfer 02-Substantial/maximal assistance G. Car transfer 88-Not attempted due to medical condition or safety concerns I. Walk 10 feet 02-Substantial/maximal assistance J. Walk 50 feet with two turns 88-Not attempted due to medical condition or safety concerns K. Walk 150 feet 88-Not attempted due to medical condition or safety concerns L. Walking 10 feet on uneven surfaces 88-Not attempted due to medical condition or safety concerns M. 1 step (curb) 88-Not attempted due to medical condition or safety concerns N. 4 steps 88-Not attempted due to medical condition or safety concerns O. 12 steps 88-Not attempted due to medical condition or safety concerns P. Picking up object 88-Not attempted due to medical condition or safety concerns R. Wheel 50 feet with two turns 88-Not attempted due to medical condition or safety concerns S. Wheel 150 feet 88-Not attempted due to medical condition or safety concerns - Bladder and Bowel Bladder continence Bowel continence - Endurance Fair - Balance Fair - Safety Awareness Fair CURRENT [facility]. DEFICITS: Self-Care, Mobility, Endurance, Balance, and Safety Awareness SIGNATURE PANEL: (CDT)
[2021-03-03] MEDS: ENOXAPARIN 40 MG/0.4 ML SQ SCH (17:07)
[2021-03-03] MEDS: METOPROLOL 25 MG TABLET PO SCH (17:08)
[2021-03-03] MEDS: MELATONIN 5 MG TABLET PO SCH (19:12)
[2021-03-03] MEDS: DOCUSATE NA/SENNA CONC 1 TAB PO PRN (19:12)
[2021-03-03] MEDS: ROSUVASTATIN 10 MG TAB PO SCH (19:13)
[2021-03-03] MEDS: MIRABEGRON 50 MG PO SCH (19:14)
[2021-03-03] MEDS: NORTRIPTYLINE HCL 25 MG CAP PO SCH (19:16)
[2021-03-04] MEDS: METOPROLOL 25 MG TABLET PO SCH ×2 (05:47→16:46)
[2021-03-04] MEDS: INSULIN -REGULAR HUMAN 50 UNIT/0.5 ML ML SQ SCH ×4 (07:30→19:51)
[2021-03-04] MEDS: OMEPRAZOLE 20 MG PO SCH (07:57)
[2021-03-04] MEDS: GLUCERNA SHAKE 237 ML CAN PO SCH ×2 (08:01→19:11)
[2021-03-04] MEDS: MULTIVITAMIN PO SCH (08:02)
[2021-03-04] MEDS: [UNRECOGNIZED DRUG - OTHER] PO SCH (08:02)
[2021-03-04] MEDS: METFORMIN HCL 850 MG TAB PO SCH ×2 (08:02→16:46)
[2021-03-04] MEDS: SITAGLIPTIN PHOS 100 MG TAB PO SCH (08:02)
[2021-03-04] MEDS: LISINOPRIL 20 MG TABLET PO SCH (08:03)
[2021-03-04] MEDS: DIPYRIDAMOLE/ASPIRIN CAP ER PO SCH ×2 (08:03→19:10)
--- NOTE | 2021-03-04 08:58 | PN ---
Date of Progress Note: 03/03/2021 Subjective: The patient was seen this morning for followup. No new complaints or problems reported by patient. Lying in bed, not in distress. Objective: Vital Signs: Reviewed. HEENT: Examination unremarkable. Lungs: Clear to auscultation. Heart: Sounds normal. Abdomen: Soft. Bowel sounds normal. No guarding, rigidity, tenderness, or distention. Extremities: No leg edema. Impression: 1.Insomnia. 2.Debility. 3.Generalized weakness. 4.Hypertension. 5.Diabetes mellitus. Plan: The patient reported that he did not sleep last night as well as the night before. He is on m elatonin 3 mg at bedtime. We will increase dose to 5 mg at bedtime. Fingerstick blood sugar reading s reviewed. Continue current diabetes medication and antihypertensive medication. Continue Lovenox and physical therapy to be provided under guidance of Dr. Madrigal. KARIN/MODL Voice ID: [id number] Report ID: [id number]
[2021-03-04] MEDS: ENOXAPARIN 40 MG/0.4 ML SQ SCH (16:45)
[2021-03-04] MEDS: MELATONIN 5 MG TABLET PO SCH (19:10)
[2021-03-04] MEDS: MIRABEGRON 50 MG PO SCH (19:10)
[2021-03-04] MEDS: DOCUSATE NA/SENNA CONC 1 TAB PO PRN (19:10)
[2021-03-04] MEDS: NORTRIPTYLINE HCL 25 MG CAP PO SCH (19:11)
[2021-03-04] MEDS: ROSUVASTATIN 10 MG TAB PO SCH (19:11)
[2021-03-05] MEDS: METOPROLOL 25 MG TABLET PO SCH ×2 (05:27→17:06)
[2021-03-05] MEDS: INSULIN -REGULAR HUMAN 50 UNIT/0.5 ML ML SQ SCH ×4 (07:30→21:00)
[2021-03-05] MEDS: DIPYRIDAMOLE/ASPIRIN CAP ER PO SCH ×2 (08:28→21:28)
[2021-03-05] MEDS: SITAGLIPTIN PHOS 100 MG TAB PO SCH (08:28)
[2021-03-05] MEDS: MULTIVITAMIN PO SCH (08:29)
[2021-03-05] MEDS: [UNRECOGNIZED DRUG - OTHER] PO SCH (08:29)
[2021-03-05] MEDS: LISINOPRIL 20 MG TABLET PO SCH (08:30)
[2021-03-05] MEDS: METFORMIN HCL 850 MG TAB PO SCH ×2 (08:30→17:06)
[2021-03-05] MEDS: OMEPRAZOLE 20 MG PO SCH (08:31)
[2021-03-05] MEDS: GLUCERNA SHAKE 237 ML CAN PO SCH ×2 (09:53→21:25)
[2021-03-05] MEDS: ENOXAPARIN 40 MG/0.4 ML SQ SCH (16:39)
[2021-03-05] MEDS: ROSUVASTATIN 10 MG TAB PO SCH (21:25)
[2021-03-05] MEDS: NORTRIPTYLINE HCL 25 MG CAP PO SCH (21:26)
[2021-03-05] MEDS: MIRABEGRON 50 MG PO SCH (21:26)
[2021-03-05] MEDS: MELATONIN 5 MG TABLET PO SCH (21:26)
[2021-03-06] MEDS: METOPROLOL 25 MG TABLET PO SCH ×2 (05:23→17:34)
--- NOTE | 2021-03-06 06:59 | PN ---
Date of Progress Note: 03/05/2021 Subjective: The patient was seen for a followup in the morning. No new complaints or problems repor chen by the patient. Lying in bed, not in any distress. Objective: Vital Signs: Reviewed. HEENT: Examination unremarkable. Lungs: Clear to auscultation. Heart: Sounds normal. Abdomen: Soft. Bowel sounds normal. No guarding, rigidity, tenderness, or distention. Extremity Exam: No leg edema. Impression: 1.Hypertension. 2.Diabetes mellitus. 3.Stroke with left-sided hemiparesis. 4.Generalized weakness. 5.Debility. Plan: We will continue current medications. Continue current diabetes and blood pressure medicine. Continue current physical therapy under guidance of Dr. Madrigal. [facility] dose [facility] mel[facility], and we will continue that. We will see him tomorrow for a follo wup. KARIN/MODL Voice ID: [id number] Report ID: [id number]
[2021-03-06 07:06] LABS: Basophils % 0.4 % (0-1.3); Hematocrit 40.3 % (39.6-49.0); Lymphocytes % 9.9 % (15.3-44.8); MPV 9.6 fL (7.6-11.3); RBC Red Blood Cell Count 4.21 M/uL (4.33-5.43)
[2021-03-06 07:20] LABS: Albumin 2.5 g/dL (3.4-5.0); Magnesium 1.6 mg/dL (1.8-2.4); Potassium 4.1 mmol/L (3.5-5.1); Prealbumin 19.2 mg/dL (20-40)
--- NOTE | 2021-03-06 07:27 | PN ---
Date of Progress Note: 03/04/2021 Subjective: Patient was seen this morning for followup, no new complaints or problems reported by eunice ramachandran. Lying in bed, not in any distress. He is sleeping well at night time with higher dose of aris atonin. Denies any other new complaints. Objective: Vital Signs: Reviewed. HEENT: Examination unremarkable. Lungs: Clear to auscultation. Heart: Sounds normal. Abdomen: Soft, bowel sounds normal. No guarding, rigidity, tenderness, or distention. Extremity Exam: No leg edema. Impression: 1.Constipation. 2.Hypertension. 3.Diabetes mellitus. 4.Debility. 5.Generalized weakness. 6.Insomnia. Plan: The patient responding well to stool softener. We will continue that. Continue current physi neftaly therapy under the guidance of Dr. Madrigal. Continue current diabetes and blood pressure medicat ions. I will see him tomorrow for followup. KARIN/MODL Voice ID: [id number] Report ID: [id number]
[2021-03-06] MEDS: INSULIN -REGULAR HUMAN 50 UNIT/0.5 ML ML SQ SCH ×4 (07:30→20:32)
[2021-03-06] MEDS: DIPYRIDAMOLE/ASPIRIN CAP ER PO SCH ×2 (09:03→20:29)
[2021-03-06] MEDS: MULTIVITAMIN PO SCH (09:04)
[2021-03-06] MEDS: [UNRECOGNIZED DRUG - OTHER] PO SCH (09:04)
[2021-03-06] MEDS: METFORMIN HCL 850 MG TAB PO SCH ×2 (09:04→17:30)
[2021-03-06] MEDS: OMEPRAZOLE 20 MG PO SCH (09:05)
[2021-03-06] MEDS: LISINOPRIL 20 MG TABLET PO SCH (09:05)
[2021-03-06] MEDS: MAGNESIUM OXIDE 400 MG TAB PO SCH ×2 (10:45→20:30)
[2021-03-06] MEDS: SITAGLIPTIN PHOS 100 MG TAB PO SCH (10:45)
[2021-03-06] MEDS: GLUCERNA SHAKE 237 ML CAN PO SCH ×2 (10:46→20:28)
[2021-03-06] MEDS: ENOXAPARIN 40 MG/0.4 ML SQ SCH (16:38)
[2021-03-06] MEDS: NORTRIPTYLINE HCL 25 MG CAP PO SCH (20:30)
[2021-03-06] MEDS: ROSUVASTATIN 10 MG TAB PO SCH (20:31)
[2021-03-06] MEDS: MIRABEGRON 50 MG PO SCH (20:31)
[2021-03-06] MEDS: MELATONIN 5 MG TABLET PO SCH (20:31)
[2021-03-07] MEDS: METOPROLOL 25 MG TABLET PO SCH ×2 (05:18→17:04)
--- NOTE | 2021-03-07 06:39 | PN ---
Date of Progress Note: 03/06/2021 Subjective: Patient was seen this morning for followup. No new complaints or problems reported by h im. Lying in bed, not in distress. Objective: Vital Signs: Reviewed. HEENT: Examination unremarkable. Lungs: Clear to auscultation. Cardiac: Heart sounds normal. Abdomen: Soft, bowel sounds normal. No guarding, rigidity, tenderness, distention. Extremities: No leg edema. Laboratory Data: White count 9.9, hemoglobin 13.6, platelets 304. Sodium 137, potassium 4.1, chlori de 102, bicarb 30, BUN 20, creatinine 1.03, glucose 153, magnesium 1.6. Impression: 1.Generalized weakness. 2.Debility. 3.Hypomagnesemia. 4.Hypertension. 5.Hyperlipidemia. 6.Diabetes mellitus. We will continue current medications. Continue current antihypertensive medication, diabetes managem ent. Physical therapy to be provided under guidance of Dr. Madrigal and replace magnesium. I will s ee him tomorrow for followup. KARIN/MODL Voice ID: [id number] Report ID: [id number]
[2021-03-07] MEDS: OMEPRAZOLE 20 MG PO SCH (07:11)
[2021-03-07] MEDS: INSULIN -REGULAR HUMAN 50 UNIT/0.5 ML ML SQ SCH ×4 (07:30→19:28)
[2021-03-07] MEDS: GLUCERNA SHAKE 237 ML CAN PO SCH ×2 (08:00→19:16)
[2021-03-07] MEDS: METFORMIN HCL 850 MG TAB PO SCH ×2 (08:00→17:04)
[2021-03-07] MEDS: DIPYRIDAMOLE/ASPIRIN CAP ER PO SCH ×2 (08:00→19:15)
[2021-03-07] MEDS: SITAGLIPTIN PHOS 100 MG TAB PO SCH (08:01)
[2021-03-07] MEDS: LISINOPRIL 20 MG TABLET PO SCH (08:01)
[2021-03-07] MEDS: MULTIVITAMIN PO SCH (08:01)
[2021-03-07] MEDS: MAGNESIUM OXIDE 400 MG TAB PO SCH ×2 (08:01→19:15)
[2021-03-07] MEDS: [UNRECOGNIZED DRUG - OTHER] PO SCH (08:01)
--- NOTE | 2021-03-07 08:49 | P.RH.PN ---
Estimated Length of Stay: 13 Expected Discharge Date: 03/11/21 Discharge Disposition Plan: Home Family Support: Yes Half-Way Goal: Mobility Vital Signs: Last Vital Signs Temp 98.2 F 03/07/21 08:22 Pulse 76 03/07/21 08:22 Resp 14 03/07/21 08:22 BP 100/62 03/07/21 08:22 Pulse Ox 92 03/07/21 08:22 Laboratory: Laboratory Last Values WBC 9.90 K/uL (4.3-10.9) 03/06/21 06:27 RBC 4.21 M/uL (4.33-5.43) L 03/06/21 06:27 Hgb 13.6 g/dL (13.6-17.9) 03/06/21 06:27 Hct 40.3 % (39.6-49.0) 03/06/21 06:27 MCV 95.9 fL (80-100) 03/06/21 06:27 MCH 32.4 pg (27.0-35.0) 03/06/21 06:27 MCHC 33.8 g/dL (32.0-36.0) 03/06/21 06:27 RDW 13.0 % (12.1-15.2) 03/06/21 06:27 Plt Count 304 K/uL (152-406) D 03/06/21 06:27 MPV 9.6 fL (7.6-11.3) 03/06/21 06:27 Neutrophils % 73.6 % (41.7-73.7) 03/06/21 06:27 Lymphocytes % 9.9 % (15.3-44.8) L 03/06/21 06:27 Monocytes % 14.6 % (3.3-12.3) H 03/06/21 06:27 Eosinophils % 1.5 % (0-4.4) 03/06/21 06:27 Basophils % 0.4 % (0-1.3) 03/06/21 06:27 Absolute Neutrophils 7.3 K/uL (1.8-8.0) 03/06/21 06:27 Absolute Lymphocytes 1.0 K/uL (0.7-4.9) 03/06/21 06:27 Absolute Monocytes 1.4 K/uL (0.1-1.3) H 03/06/21 06:27 Absolute Eosinophils 0.1 K/uL (0-0.5) 03/06/21 06:27 Absolute Basophils 0.0 K/uL (0-0.5) 03/06/21 06:27 Sodium 137 mmol/L (136-145) 03/06/21 06:27 Potassium 4.1 mmol/L (3.5-5.1) 03/06/21 06:27 Chloride 102 mmol/L (98-107) 03/06/21 06:27 Carbon Dioxide 30 mmol/L (21-32) 03/06/21 06:27 BUN 20 mg/dL (7-18) H 03/06/21 06:27 Creatinine 1.03 mg/dL (0.55-1.3) 03/06/21 06:27 Estimated GFR 69 mL/min (=/>90) L 03/06/21 06:27 Glucose 153 mg/dL (74-106) H 03/06/21 06:27 POC Glucose 147 mg/dL (65-120) H 03/07/21 07:45 Calcium 9.2 mg/dL (8.5-10.1) 03/06/21 06:27 Magnesium 1.6 mg/dL (1.8-2.4) L D 03/06/21 06:27 Albumin 2.5 g/dL (3.4-5.0) L 03/06/21 06:27 Prealbumin 19.2 mg/dL (20-40) L 03/06/21 06:27 Urine Color Yellow (Yellow) 02/27/21 20:00 Urine Appearance Clear (Clear) 02/27/21 20:00 Urine pH 6.0 (5.0-7.0) 02/27/21 20:00 Ur Specific [place] >=1.030 (1.005-1.030) 02/27/21 20:00 Glucose (UA)(Auto) 3+ (Negative) H 02/27/21 20:00 Urine Ketones Negative (Negative) 02/27/21 20:00 Urine Blood Negative (Negative) 02/27/21 20:00 Urine Nitrite Negative (Negative) 02/27/21 20:00 Urine Bilirubin Negative (Negative) 02/27/21 20:00 Urine Urobilinogen 0.2 mg/dL (0.2-1.0) 02/27/21 20:00 Ur Leukocyte Esterase Negative (Negative) 02/27/21 20:00 Urine RBC <5 /HPF (NONE SEEN) 02/27/21 20:00 Urine WBC <5 /HPF (<5) 02/27/21 20:00 Ur Squamous Epith Cells 5-10 /HPF (NONE SEEN) H 02/27/21 20:00 Urine Bacteria <20 /HPF (NONE SEEN) 02/27/21 20:00 Urine Culture Reflexed Not needed 02/27/21 20:00 Urine Total Protein Negative (Negative) 02/27/21 20:00 Weight: 134 lb 14.4 oz Within Defined Parameters: Yes Wound Present: No Closed Surgical Incision Present: No Negative Pressure Wound Therapy Present: No Physician Update: Less o2 DEPENDENT. Ambulating with room air; Continue with supplement Medical Issues: doing better medically Pain Issues: none Nutritional Needs: need to add protein supplement Psychosocial Needs: outpt Functional Improvement: Patient has shown improvement w/ technique for transfers and gait tx. Patient is easily distracted, and fatigues quickly during se ssions. Patient presents w/ good overall work ethic and demeanor. Summary: Patient's care plan and emt intermediate goals have been reviewed and revised as necessary. Please see the Rehabilitation Signature page for all necessary signatures.
[2021-03-07] MEDS: ENOXAPARIN 40 MG/0.4 ML SQ SCH (17:03)
[2021-03-07] MEDS: MIRABEGRON 50 MG PO SCH ×2 (19:14→19:28)
[2021-03-07] MEDS: DOCUSATE NA/SENNA CONC 1 TAB PO PRN (19:14)
[2021-03-07] MEDS: MELATONIN 5 MG TABLET PO SCH (19:15)
[2021-03-07] MEDS: NORTRIPTYLINE HCL 25 MG CAP PO SCH (19:16)
[2021-03-07] MEDS: ROSUVASTATIN 10 MG TAB PO SCH (19:16)
[2021-03-07] MEDS: JUVEN PACKET PO SCH (19:18)
--- NOTE | 2021-03-07 20:48 | PN ---
Date of Progress Note: 03/07/2021 Subjective: The patient was seen for followup this morning. No new complaints or problems reported by the patient. Lying in bed, not in distress. Objective: Vital Signs: Reviewed. HEENT: Unremarkable. Lungs: Clear to auscultation. Heart: Sounds normal. Abdomen: Soft. Bowel sounds normal. No guarding, rigidity, tenderness, or distention. Extremities: No leg edema. Impression: 1.Stroke with left-sided hemiparesis. 2.Hypertension. 3.Diabetes mellitus. 4.Generalized weakness. 5.Debility. Plan: We will continue physical therapy under guidance of Dr. Madrigal. Continue current medical ma nagement for diabetes, hypertension, and continue current DVT prophylaxis. I will see him tomorrow f or followup. KARIN/MODL Voice ID: [id number] Report ID: [id number]
[2021-03-08] MEDS: METOPROLOL 25 MG TABLET PO SCH ×2 (05:15→17:04)
[2021-03-08 07:26] LABS: Absolute Lymphocytes (CBC) 1.4 K/uL (0.7-4.9); Hematocrit 36.4 % (39.6-49.0); Lymphocytes % 17.1 % (15.3-44.8); MPV 9.4 fL (7.6-11.3); RBC Red Blood Cell Count 3.82 M/uL (4.33-5.43)
[2021-03-08 07:30] LABS: Magnesium 1.7 mg/dL (1.8-2.4); Potassium 4.5 mmol/L (3.5-5.1)
[2021-03-08] MEDS: INSULIN -REGULAR HUMAN 50 UNIT/0.5 ML ML SQ SCH ×4 (07:30→19:37)
[2021-03-08] MEDS: LISINOPRIL 20 MG TABLET PO SCH (08:00)
[2021-03-08] MEDS: OMEPRAZOLE 20 MG PO SCH (08:24)
[2021-03-08] MEDS: METFORMIN HCL 850 MG TAB PO SCH ×2 (08:49→17:04)
[2021-03-08] MEDS: MULTIVITAMIN PO SCH (08:49)
[2021-03-08] MEDS: [UNRECOGNIZED DRUG - OTHER] PO SCH (08:49)
[2021-03-08] MEDS: SITAGLIPTIN PHOS 100 MG TAB PO SCH (08:50)
[2021-03-08] MEDS: MAGNESIUM OXIDE 400 MG TAB PO SCH ×2 (08:50→19:36)
[2021-03-08] MEDS: GLUCERNA SHAKE 237 ML CAN PO SCH ×2 (08:51→19:37)
[2021-03-08] MEDS: DIPYRIDAMOLE/ASPIRIN CAP ER PO SCH ×2 (08:51→19:37)
[2021-03-08] MEDS: JUVEN PACKET PO SCH ×2 (08:51→19:37)
[2021-03-08 09:34] LABS: Blood Morphology Comment NOT SEEN (NOT SEEN); Platelet Estimate ADEQ
--- NOTE | 2021-03-08 13:05 | PN ---
Date of Progress Note: 03/08/2021 Subjective: The patient was seen this morning for followup. No new complaints or problems reported by patient. Lying in bed, not in distress. Objective: Vital Signs: Reviewed. HEENT: Unremarkable. Lungs: Clear to auscultation. Heart: Sounds normal. Abdomen: Soft. Bowel sounds normal. No guarding, rigidity, tenderness, or distention. Extremities: No leg edema. Laboratory Data: White count 8.2, hemoglobin 12.5, platelets 260. Sodium 139, potassium 4.5, chlori de 105, bicarb 29, BUN 24, creatinine 1.15, glucose 150, magnesium 1.7. Impression: 1.Generalized weakness. 2.Debility. 3.Stroke with left-sided hemiparesis. 4.Hypomagnesemia. 5.Anemia, unspecified. 6.Hypertension. 7.Diabetes mellitus. Plan: 1.We will continue current medication. 2.Continue to follow with Dr. Madrigal and physical therapy to be provided under guidance of Dr. Carey. 3.Replace magnesium per order. 4.Continue current medications for diabetes and hypertension. KARIN/MODL Voice ID: [id number] Report ID: [id number]
[2021-03-08] MEDS: ENOXAPARIN 40 MG/0.4 ML SQ SCH (17:04)
[2021-03-08] MEDS: MELATONIN 5 MG TABLET PO SCH (19:36)
[2021-03-08] MEDS: DOCUSATE NA/SENNA CONC 1 TAB PO PRN (19:36)
[2021-03-08] MEDS: ROSUVASTATIN 10 MG TAB PO SCH (19:37)
[2021-03-08] MEDS: MIRABEGRON 50 MG PO SCH (19:37)
[2021-03-08] MEDS: NORTRIPTYLINE HCL 25 MG CAP PO SCH (19:37)
[2021-03-09] MEDS: METOPROLOL 25 MG TABLET PO SCH ×2 (05:08→17:10)
[2021-03-09] MEDS: INSULIN -REGULAR HUMAN 50 UNIT/0.5 ML ML SQ SCH ×4 (07:30→19:23)
[2021-03-09] MEDS: JUVEN PACKET PO SCH ×3 (08:00→19:22)
[2021-03-09] MEDS: OMEPRAZOLE 20 MG PO SCH (08:08)
[2021-03-09] MEDS: DIPYRIDAMOLE/ASPIRIN CAP ER PO SCH ×2 (08:45→19:22)
[2021-03-09] MEDS: SITAGLIPTIN PHOS 100 MG TAB PO SCH (08:45)
[2021-03-09] MEDS: MAGNESIUM OXIDE 400 MG TAB PO SCH ×2 (08:45→19:20)
[2021-03-09] MEDS: GLUCERNA SHAKE 237 ML CAN PO SCH ×2 (08:46→19:21)
[2021-03-09] MEDS: MULTIVITAMIN PO SCH (08:46)
[2021-03-09] MEDS: LISINOPRIL 20 MG TABLET PO SCH (08:46)
[2021-03-09] MEDS: [UNRECOGNIZED DRUG - OTHER] PO SCH (08:46)
[2021-03-09] MEDS: METFORMIN HCL 850 MG TAB PO SCH ×2 (08:46→17:10)
[2021-03-09] MEDS: ENOXAPARIN 40 MG/0.4 ML SQ SCH (17:10)
[2021-03-09] MEDS: ROSUVASTATIN 10 MG TAB PO SCH (19:22)
[2021-03-09] MEDS: MIRABEGRON 50 MG PO SCH (19:22)
[2021-03-09] MEDS: NORTRIPTYLINE HCL 25 MG CAP PO SCH (19:22)
[2021-03-09] MEDS: MELATONIN 5 MG TABLET PO SCH (19:22)
[2021-03-10] MEDS: METOPROLOL 25 MG TABLET PO SCH ×2 (05:05→17:10)
[2021-03-10] MEDS: INSULIN -REGULAR HUMAN 50 UNIT/0.5 ML ML SQ SCH ×4 (07:30→20:18)
[2021-03-10] MEDS: SITAGLIPTIN PHOS 100 MG TAB PO SCH (08:46)
[2021-03-10] MEDS: MULTIVITAMIN PO SCH (08:47)
[2021-03-10] MEDS: DIPYRIDAMOLE/ASPIRIN CAP ER PO SCH ×2 (08:47→19:33)
[2021-03-10] MEDS: [UNRECOGNIZED DRUG - OTHER] PO SCH (08:47)
[2021-03-10] MEDS: METFORMIN HCL 850 MG TAB PO SCH ×2 (08:48→17:10)
[2021-03-10] MEDS: MAGNESIUM OXIDE 400 MG TAB PO SCH ×2 (08:48→19:33)
[2021-03-10] MEDS: LISINOPRIL 20 MG TABLET PO SCH (08:48)
[2021-03-10] MEDS: OMEPRAZOLE 20 MG PO SCH (08:49)
[2021-03-10] MEDS: JUVEN PACKET PO SCH ×2 (09:43→19:33)
[2021-03-10] MEDS: GLUCERNA SHAKE 237 ML CAN PO SCH ×2 (09:43→19:31)
[2021-03-10] MEDS: ENOXAPARIN 40 MG/0.4 ML SQ SCH ×2 (16:24→16:27)
--- NOTE | 2021-03-10 17:26 | R.PN ---
PROGRESS NOTES ENCOUNTER DATE AND TIME: 03/10/2021 17:22 (CDT) NAME SIMON BRANDT DATE OF : 1940 DATE OF ADMISSION: 02/27/2021 19:42 (CDT) POST COVID-19CHIEF COMPLAINT: Post COVID-19 syndrome SUBJECTIVE: Pt denied any depression. Pt denied any Shortness of Breath. CBC with differential is essential normal. Glucose 131 to 165. Ambulated 172' with minimum assistance using a right hemiwalker. Self-propelled wheelchair 200' with contact guard assistance. VITAL SIGNS Temperature: 97.9 F SBP/DBP: 109/61 Pulse: 73 Resp: 16 MEDICATION ALLERGIES: No Known Drug Allergies (NKDA) ENVIRONMENTAL ALLERGIES: - Substance Allergies None Known - Other Allergies None Known NURSING: - Shower allowing shower ACTIVITIES OOB only with supervision THERAPIES: - Dietary and Nutrition Adequate Nutrition. Nutritional Education. Nutritional Supplements. PHYSICAL EXAM - Gen Alert and awake Lying in bed No apparent distress Oriented to: person, time, and place - Skin No skin breakdown. Normacephalic - Eyes No abnormalities - ENMT No abnormalities - Neck No abnormalities - CVS RRR - Chest No abnormalities - Abd + bowel sounds - GI Soft Deferred - No abnormalities - Ext No significant edema - MSK 1/5 weakness in left upper and 4/5 weakness in left lower extremity. - Neuro 1/5 weakness in left upper and 4/5 weakness in left lower extremity. - Psych No abnormalities ASSESSMENT: Pt. is a 81 yo Right-handed male.On 02/16/2021 he was admitted to [facility] diagnosis POST COVID-19.His impairment category is Pulmonary Disorders 10 - Other Pulmonary Disor ders (10.9).Pre-morbidly, Pt. was independent/mod-I in Safety Awareness, Balance, Communication, and Self-Care; and he had good Endurance, Self-Care, Sphincter Control, and Transfers Control.Currently, he has deficits of Locomotion, Safety Awareness, Transfers Control, Self-Care, Communication, and Bal ance.Pt. is now referred to [facility] for acute in-patient rehabilitation in order to maximize patient's functional independence in activities of daily living, strength, ROM, and mobility.- Rehab Goal Patient has realistic goal of being discharged at assistance level 7-Ind to reside at Home with Fami ly/Relatives. MDM/PLAN: - Physical Therapy Gait dysfunction - to improve, our physical therapists will perform initial evaluation of pt's statu s upon admission and devise an individualized program for Gait Training, and Wheel Chair mobility Inability to transfer - to improve, our physical therapists will perform initial evaluation of pt's status upon admission and devise an individualized program for Bed mobility Need for home safety evaluation - to improve, our physical therapists will perform initial evaluatio n of pt's status upon admission and devise an individualized program for Home Evaluation Need in caregiver upon discharge - to improve, our physical therapists will perform initial evaluati on of pt's status upon admission and devise an individualized program for Caregiver Training Edema - to improve, our physical therapists will perform initial evaluation of pt's status upon admi ssion and devise an individualized program for Elevation Training, and Lymphedema Therapy New precaution - to improve, our physical therapists will perform initial evaluation of pt's status upon admission and devise an individualized program for Patient precaution education Poor balance - to improve, our physical therapists will perform initial evaluation of pt's status up on admission and devise an individualized program for Balance Training Weakness - to improve, our physical therapists will perform initial evaluation of pt's status upon a dmission and devise an individualized program for Aquatic Therapy, Neuromuscular Reeducation, and Str engthening Achieving independence - to improve, our physical therapists will perform initial evaluation of pt's status upon admission and devise an individualized program for Community Reintegration Activities - Occupational Therapy ADL deficits - to improve, our occupation therapists will perform initial evaluation of pt's status upon admission and devise an individualized program for Bathing, Bed mobility, Community Reintegratio n, Cooking, Dressing, Eating, Fine Motor Skills, Grooming, Homemaking, Kitchen Mobility, Laundry, Pat ient Education, Safety Awareness, Splinting - Positioning, Transfers(Toilet, Tub, Shower), and Wheel Chair Management Need for disabilities caregiver - to improve, our occupation therapists will perform initial evaluation of pt's status upon admission and devise an individualized program for Caregiver Training Weakness - to improve, our occupation therapists will perform initial evaluation of pt's status upon admission and devise an individualized program for Aquatic Therapy, Balance, Endurance, UE ROM, and UE strengthening - Other See attached MAR (Medication Administration Record) - Diet Type Continue Regular - Diet - Liquid Texture Continue Regular - Tube Feed Continue N/A - Diet - Solid Texture Continue Regular - Shower allowing shower FUNCTIONAL STATUS: UPDATED AT WEEKLY TEAM CONFERENCE - Bladder Same accident frequency: 7-Ind - No accidents in the past 7 days - Bowel Same accident frequency: 7-Ind - No accidents in the past 7 days - Walking Same score based on distance walked: 0(N/A) - Wheelchair Same score based on distance traveled: 0(N/A) FUNCTIONAL STATUS: - Self-Care A. Eating Ind B. Grooming Beulah C. Bathing Nick D. Dressing - Upper Nick E. Dressing - Lower modA F. Toileting Nick - Sphincter Control G. Bladder control Beulah H. Bowel control Beulah - Transfers Control I. Bed/Chair/Wheelchair Nick J. Toilet Nick K. Tub/Shower modA - Locomotion L. Walk/Wheelchair (B) Nick M. Stairs ADNO - Communication N. Comprehension (B) Beulah O. Expression (B) Beulah - Social Cognition P. Social Interaction Beulah Q. Problem Solving Beulah R. Memory Beulah - Endurance Fair - Balance Fair - Safety Awareness Fair QI SCORES: - Self-Care A. Eating 03-Partial/moderate assistance B. Oral hygiene 03-Partial/moderate assistance C. Toileting hygiene 03-Partial/moderate assistance E. Shower/bathe self 02-Substantial/maximal assistance F. Upper body dressing 03-Partial/moderate assistance G. Lower body dressing 02-Substantial/maximal assistance H. Putting on/taking off footwear 88-Not attempted due to medical condition or safety concerns - Mobility A. Roll left and right 03-Partial/moderate assistance B. Sit to lying 03-Partial/moderate assistance C. Lying to sitting on side of bed 03-Partial/moderate assistance D. Sit to stand 03-Partial/moderate assistance E. Chair/knh-ap-mwjhl transfer 03-Partial/moderate assistance F. Toilet transfer 02-Substantial/maximal assistance G. Car transfer 88-Not attempted due to medical condition or safety concerns I. Walk 10 feet 02-Substantial/maximal assistance J. Walk 50 feet with two turns 88-Not attempted due to medical condition or safety concerns K. Walk 150 feet 88-Not attempted due to medical condition or safety concerns L. Walking 10 feet on uneven surfaces 88-Not attempted due to medical condition or safety concerns M. 1 step (curb) 88-Not attempted due to medical condition or safety concerns N. 4 steps 88-Not attempted due to medical condition or safety concerns O. 12 steps 88-Not attempted due to medical condition or safety concerns P. Picking up object 88-Not attempted due to medical condition or safety concerns R. Wheel 50 feet with two turns 88-Not attempted due to medical condition or safety concerns S. Wheel 150 feet 88-Not attempted due to medical condition or safety concerns - Bladder and Bowel Bladder continence Bowel continence - Endurance Fair - Balance Fair - Safety Awareness Fair CURRENT [facility]. DEFICITS: Self-Care, Mobility, Endurance, Balance, and Safety Awareness SIGNATURE PANEL: (CDT)
[2021-03-10] MEDS: ROSUVASTATIN 10 MG TAB PO SCH (19:31)
[2021-03-10] MEDS: MIRABEGRON 50 MG PO SCH (19:32)
[2021-03-10] MEDS: MEMANTINE HCL 10 MG TABLET PO SCH (19:32)
[2021-03-10] MEDS: MELATONIN 5 MG TABLET PO SCH (19:32)
[2021-03-10] MEDS: NORTRIPTYLINE HCL 25 MG CAP PO SCH (19:33)
[2021-03-11] MEDS: METOPROLOL 25 MG TABLET PO SCH ×2 (05:00→17:40)
[2021-03-11] MEDS: INSULIN -REGULAR HUMAN 50 UNIT/0.5 ML ML SQ SCH ×4 (07:30→19:57)
[2021-03-11] MEDS: LISINOPRIL 20 MG TABLET PO SCH ×2 (08:00→08:43)
[2021-03-11] MEDS: SITAGLIPTIN PHOS 100 MG TAB PO SCH (08:41)
[2021-03-11] MEDS: MAGNESIUM OXIDE 400 MG TAB PO SCH ×2 (08:41→19:55)
[2021-03-11] MEDS: DIPYRIDAMOLE/ASPIRIN CAP ER PO SCH ×2 (08:42→19:54)
[2021-03-11] MEDS: MULTIVITAMIN PO SCH (08:43)
[2021-03-11] MEDS: METFORMIN HCL 850 MG TAB PO SCH ×2 (08:43→17:41)
[2021-03-11] MEDS: [UNRECOGNIZED DRUG - OTHER] PO SCH (08:43)
[2021-03-11] MEDS: OMEPRAZOLE 20 MG PO SCH (08:44)
[2021-03-11] MEDS: GLUCERNA SHAKE 237 ML CAN PO SCH ×2 (08:45→19:54)
[2021-03-11] MEDS: JUVEN PACKET PO SCH ×2 (08:45→19:54)
--- NOTE | 2021-03-11 10:44 | PN ---
Date of Progress Note: 03/10/2021 Subjective: The patient was seen for followup this morning. Lying in bed, not in distress. No new complaints or problems reported by the patient, lying in bed. Objective: Vital Signs: Reviewed. HEENT: Unremarkable. Lungs: Clear to auscultation. Heart: Sounds normal. Abdomen: Soft. Bowel sounds normal. No guarding, rigidity, tenderness, or distention. Extremities: No leg edema. Neuro: Left-sided hemiparesis unchanged. Impression: 1.Stroke with left-sided hemiparesis. 2.Hypertension. 3.Type 2 diabetes mellitus. 4.Generalized weakness. 5.Debility. 6.Anemia, unspecified. Plan: We will continue current medications. Continue to provide physical therapy under guidance of Dr. Madrigal. Continue current antihypertensive and diabetes medicines. Fingerstick blood sugar mukesh faith reviewed. The patient is on Lovenox for DVT prophylaxis. KARIN/MODL Voice ID: [id number] Report ID: [id number]
[2021-03-11 11:34] LABS: Absolute Lymphocytes (CBC) 1.3 K/uL (0.7-4.9); Basophils % 1.1 % (0-1.3); Hematocrit 40.2 % (39.6-49.0); Lymphocytes % 16.6 % (15.3-44.8); MPV 9.6 fL (7.6-11.3); RBC Red Blood Cell Count 4.12 M/uL (4.33-5.43)
[2021-03-11 11:44] LABS: Potassium 4.3 mmol/L (3.5-5.1)
[2021-03-11 13:42] LABS: Urine Appearance CLEAR (Clear); Urine Bilirubin NEGATIVE (Negative); Urine Blood NEGATIVE (Negative); Urine Color YELLOW (Yellow); Urine Glucose NEGATIVE (Negative); Urine Protein NEGATIVE (Negative); Urine Specific Gravity 1.015 (1.005-1.030); Urine Urobilinogen 0.2 mg/dL (0.2-1.0); Urine pH 7.5 (5.0-7.0)
[2021-03-11 13:49] LABS: Urine Microscopic Reflex NO UMIC
[2021-03-11] MEDS: MIRABEGRON 50 MG PO SCH (19:54)
[2021-03-11] MEDS: DOCUSATE NA/SENNA CONC 1 TAB PO PRN (19:54)
[2021-03-11] MEDS: MEMANTINE HCL 10 MG TABLET PO SCH (19:55)
[2021-03-11] MEDS: NORTRIPTYLINE HCL 25 MG CAP PO SCH (19:56)
[2021-03-11] MEDS: ROSUVASTATIN 10 MG TAB PO SCH (19:56)
[2021-03-11] MEDS: MELATONIN 3 MG TABLET PO SCH (19:56)
--- NOTE | 2021-03-11 20:09 | R.PN ---
PROGRESS NOTES ENCOUNTER DATE AND TIME: 03/11/2021 20:07 (CDT) NAME SIMON BRANDT DATE OF : 1940 DATE OF ADMISSION: 02/27/2021 19:42 (CDT) POST COVID-19CHIEF COMPLAINT: Post COVID-19 syndrome SUBJECTIVE: Pt denied any depression. Pt denied any Shortness of Breath. CBC with differential is essential normal. Glucose 121 to 143. Therapeutic exercises done with supervision. VITAL SIGNS Temperature: 97.9 F SBP/DBP: 120/59 Pulse: 84 Resp: 16 MEDICATION ALLERGIES: No Known Drug Allergies (NKDA) ENVIRONMENTAL ALLERGIES: - Substance Allergies None Known - Other Allergies None Known NURSING: - Shower allowing shower ACTIVITIES OOB only with supervision THERAPIES: - Dietary and Nutrition Adequate Nutrition. Nutritional Education. Nutritional Supplements. PHYSICAL EXAM - Gen Alert and awake Lying in bed No apparent distress Oriented to: person, time, and place - Skin No skin breakdown. Normacephalic - Eyes No abnormalities - ENMT No abnormalities - Neck No abnormalities - CVS RRR - Chest No abnormalities - Abd + bowel sounds - GI Soft Deferred - No abnormalities - Ext No significant edema - MSK 1/5 weakness in left upper and 4/5 weakness in left lower extremity. - Neuro 1/5 weakness in left upper and 4/5 weakness in left lower extremity. - Psych No abnormalities ASSESSMENT: Pt. is a 81 yo Right-handed male.On 02/16/2021 he was admitted to [facility] diagnosis POST COVID-19.His impairment category is Pulmonary Disorders 10 - Other Pulmonary Disor ders (10.9).Pre-morbidly, Pt. was independent/mod-I in Safety Awareness, Balance, Communication, and Self-Care; and he had good Endurance, Self-Care, Sphincter Control, and Transfers Control.Currently, he has deficits of Locomotion, Safety Awareness, Transfers Control, Self-Care, Communication, and Bal ance.Pt. is now referred to [facility] for acute in-patient rehabilitation in order to maximize patient's functional independence in activities of daily living, strength, ROM, and mobility.- Rehab Goal Patient has realistic goal of being discharged at assistance level 7-Ind to reside at Home with Fami ly/Relatives. MDM/PLAN: - Physical Therapy Gait dysfunction - to improve, our physical therapists will perform initial evaluation of pt's statu s upon admission and devise an individualized program for Gait Training, and Wheel Chair mobility Inability to transfer - to improve, our physical therapists will perform initial evaluation of pt's status upon admission and devise an individualized program for Bed mobility Need for home safety evaluation - to improve, our physical therapists will perform initial evaluatio n of pt's status upon admission and devise an individualized program for Home Evaluation Need in caregiver upon discharge - to improve, our physical therapists will perform initial evaluati on of pt's status upon admission and devise an individualized program for Caregiver Training Edema - to improve, our physical therapists will perform initial evaluation of pt's status upon admi ssion and devise an individualized program for Elevation Training, and Lymphedema Therapy New precaution - to improve, our physical therapists will perform initial evaluation of pt's status upon admission and devise an individualized program for Patient precaution education Poor balance - to improve, our physical therapists will perform initial evaluation of pt's status up on admission and devise an individualized program for Balance Training Weakness - to improve, our physical therapists will perform initial evaluation of pt's status upon a dmission and devise an individualized program for Aquatic Therapy, Neuromuscular Reeducation, and Str engthening Achieving independence - to improve, our physical therapists will perform initial evaluation of pt's status upon admission and devise an individualized program for Community Reintegration Activities - Occupational Therapy ADL deficits - to improve, our occupation therapists will perform initial evaluation of pt's status upon admission and devise an individualized program for Bathing, Bed mobility, Community Reintegratio n, Cooking, Dressing, Eating, Fine Motor Skills, Grooming, Homemaking, Kitchen Mobility, Laundry, Pat ient Education, Safety Awareness, Splinting - Positioning, Transfers(Toilet, Tub, Shower), and Wheel Chair Management Need for care director - to improve, our occupation therapists will perform initial evaluation of pt's status upon admission and devise an individualized program for Caregiver Training Weakness - to improve, our occupation therapists will perform initial evaluation of pt's status upon admission and devise an individualized program for Aquatic Therapy, Balance, Endurance, UE ROM, and UE strengthening - Other See attached MAR (Medication Administration Record) - Diet Type Continue Regular - Diet - Liquid Texture Continue Regular - Tube Feed Continue N/A - Diet - Solid Texture Continue Regular - Shower allowing shower FUNCTIONAL STATUS: UPDATED AT WEEKLY TEAM CONFERENCE - Bladder Same accident frequency: 7-Ind - No accidents in the past 7 days - Bowel Same accident frequency: 7-Ind - No accidents in the past 7 days - Walking Same score based on distance walked: 0(N/A) - Wheelchair Same score based on distance traveled: 0(N/A) FUNCTIONAL STATUS: - Self-Care A. Eating Ind B. Grooming Beulah C. Bathing Nick D. Dressing - Upper Nick E. Dressing - Lower modA F. Toileting Nick - Sphincter Control G. Bladder control Beulah H. Bowel control Beulah - Transfers Control I. Bed/Chair/Wheelchair Nick J. Toilet Nick K. Tub/Shower modA - Locomotion L. Walk/Wheelchair (B) Nick M. Stairs ADNO - Communication N. Comprehension (B) Beulah O. Expression (B) Beulah - Social Cognition P. Social Interaction Beulah Q. Problem Solving Beulah R. Memory Beulah - Endurance Fair - Balance Fair - Safety Awareness Fair QI SCORES: - Self-Care A. Eating 03-Partial/moderate assistance B. Oral hygiene 03-Partial/moderate assistance C. Toileting hygiene 03-Partial/moderate assistance E. Shower/bathe self 02-Substantial/maximal assistance F. Upper body dressing 03-Partial/moderate assistance G. Lower body dressing 02-Substantial/maximal assistance H. Putting on/taking off footwear 88-Not attempted due to medical condition or safety concerns - Mobility A. Roll left and right 03-Partial/moderate assistance B. Sit to lying 03-Partial/moderate assistance C. Lying to sitting on side of bed 03-Partial/moderate assistance D. Sit to stand 03-Partial/moderate assistance E. Chair/icq-jw-decaz transfer 03-Partial/moderate assistance F. Toilet transfer 02-Substantial/maximal assistance G. Car transfer 88-Not attempted due to medical condition or safety concerns I. Walk 10 feet 02-Substantial/maximal assistance J. Walk 50 feet with two turns 88-Not attempted due to medical condition or safety concerns K. Walk 150 feet 88-Not attempted due to medical condition or safety concerns L. Walking 10 feet on uneven surfaces 88-Not attempted due to medical condition or safety concerns M. 1 step (curb) 88-Not attempted due to medical condition or safety concerns N. 4 steps 88-Not attempted due to medical condition or safety concerns O. 12 steps 88-Not attempted due to medical condition or safety concerns P. Picking up object 88-Not attempted due to medical condition or safety concerns R. Wheel 50 feet with two turns 88-Not attempted due to medical condition or safety concerns S. Wheel 150 feet 88-Not attempted due to medical condition or safety concerns - Bladder and Bowel Bladder continence Bowel continence - Endurance Fair - Balance Fair - Safety Awareness Fair CURRENT [facility]. DEFICITS: Self-Care, Mobility, Endurance, Balance, and Safety Awareness SIGNATURE PANEL: (CDT)
[2021-03-12] MEDS: METOPROLOL 25 MG TABLET PO SCH ×2 (05:03→17:11)
[2021-03-12] MEDS: INSULIN -REGULAR HUMAN 50 UNIT/0.5 ML ML SQ SCH ×4 (07:30→20:00)
[2021-03-12] MEDS: OMEPRAZOLE 20 MG PO SCH (07:36)
[2021-03-12] MEDS: GLUCERNA SHAKE 237 ML CAN PO SCH ×2 (07:38→19:59)
[2021-03-12] MEDS: METFORMIN HCL 850 MG TAB PO SCH ×2 (07:38→17:11)
[2021-03-12] MEDS: LISINOPRIL 20 MG TABLET PO SCH (07:38)
[2021-03-12] MEDS: [UNRECOGNIZED DRUG - OTHER] PO SCH (07:38)
[2021-03-12] MEDS: MULTIVITAMIN PO SCH (07:38)
[2021-03-12] MEDS: DIPYRIDAMOLE/ASPIRIN CAP ER PO SCH ×2 (07:38→20:01)
[2021-03-12] MEDS: JUVEN PACKET PO SCH ×3 (07:39→19:59)
[2021-03-12] MEDS: MAGNESIUM OXIDE 400 MG TAB PO SCH ×2 (07:39→19:59)
[2021-03-12] MEDS: SITAGLIPTIN PHOS 100 MG TAB PO SCH (07:39)
--- NOTE | 2021-03-12 11:06 | PN ---
Date of Progress Note: 03/11/2021 Subjective: The patient was seen this morning for followup. No new complaints or problems reported by patient. Objective: General: Lying in bed, not in distress. Vital Signs: Reviewed. HEENT: Unremarkable. Lungs: Clear to auscultation. Heart: Sounds normal. Abdomen: Soft. Bowel sounds normal. No guarding, rigidity, tenderness, or distention. Extremities: No leg edema. Impression: 1.Stroke with left-sided hemiparesis. 2.Hypertension. 3.Diabetes mellitus, type 2. 4.Generalized weakness. 5.Debility. Plan: We will continue physical therapy under guidance of Dr. Madrigal. The patient has SCD present for DVT prophylaxis. Continue current antiplatelet therapy, current hypertension and diabetes manag ement. Fingerstick blood sugar readings reviewed. KARIN/MODL Voice ID: [id number] Report ID: [id number]
--- NOTE | 2021-03-12 17:58 | R.PN ---
PROGRESS NOTES ENCOUNTER DATE AND TIME: 03/12/2021 17:51 (CDT) NAME SIMON BRANDT DATE OF : 1940 DATE OF ADMISSION: 02/27/2021 19:42 (CDT) POST COVID-19CHIEF COMPLAINT: Post COVID-19 syndrome SUBJECTIVE: Pt denied any depression. Pt denied any Shortness of Breath. CBC with differential is essential normal. Glucose 121 to 143. Ambulated a total of 460' in the AM and PM sessions with a right hemiwalker and contact guard to mini mum assistance. Memantine 5 mg at bed time for memory loss. VITAL SIGNS Temperature: 97.9 F SBP/DBP: 117/61 Pulse: 73 Resp: 16 O2 Sat: 92-94 % on room air. MEDICATION ALLERGIES: No Known Drug Allergies (NKDA) ENVIRONMENTAL ALLERGIES: - Substance Allergies None Known - Other Allergies None Known NURSING: - Shower allowing shower ACTIVITIES OOB only with supervision THERAPIES: - Dietary and Nutrition Adequate Nutrition. Nutritional Education. Nutritional Supplements. PHYSICAL EXAM - Gen Alert and awake Lying in bed No apparent distress Oriented to: person, time, and place - Skin No skin breakdown. Normacephalic - Eyes No abnormalities - ENMT No abnormalities - Neck No abnormalities - CVS RRR - Chest No abnormalities - Abd + bowel sounds - GI Soft Deferred - No abnormalities - Ext No significant edema - MSK 1/5 weakness in left upper and 4/5 weakness in left lower extremity. - Neuro 1/5 weakness in left upper and 4/5 weakness in left lower extremity. - Psych No abnormalities ASSESSMENT: Pt. is a 81 yo Right-handed male.On 02/16/2021 he was admitted to [facility] diagnosis POST COVID-19.His impairment category is Pulmonary Disorders 10 - Other Pulmonary Disor ders (10.9).Pre-morbidly, Pt. was independent/mod-I in Safety Awareness, Balance, Communication, and Self-Care; and he had good Endurance, Self-Care, Sphincter Control, and Transfers Control.Currently, he has deficits of Locomotion, Safety Awareness, Transfers Control, Self-Care, Communication, and Bal ance.Pt. is now referred to [facility] for acute in-patient rehabilitation in order to maximize patient's functional independence in activities of daily living, strength, ROM, and mobility.- Rehab Goal Patient has realistic goal of being discharged at assistance level 7-Ind to reside at Home with Fami ly/Relatives. MDM/PLAN: - Physical Therapy Gait dysfunction - to improve, our physical therapists will perform initial evaluation of pt's statu s upon admission and devise an individualized program for Gait Training, and Wheel Chair mobility Inability to transfer - to improve, our physical therapists will perform initial evaluation of pt's status upon admission and devise an individualized program for Bed mobility Need for home safety evaluation - to improve, our physical therapists will perform initial evaluatio n of pt's status upon admission and devise an individualized program for Home Evaluation Need in caregiver upon discharge - to improve, our physical therapists will perform initial evaluati on of pt's status upon admission and devise an individualized program for Caregiver Training Edema - to improve, our physical therapists will perform initial evaluation of pt's status upon admi ssion and devise an individualized program for Elevation Training, and Lymphedema Therapy New precaution - to improve, our physical therapists will perform initial evaluation of pt's status upon admission and devise an individualized program for Patient precaution education Poor balance - to improve, our physical therapists will perform initial evaluation of pt's status up on admission and devise an individualized program for Balance Training Weakness - to improve, our physical therapists will perform initial evaluation of pt's status upon a dmission and devise an individualized program for Aquatic Therapy, Neuromuscular Reeducation, and Str engthening Achieving independence - to improve, our physical therapists will perform initial evaluation of pt's status upon admission and devise an individualized program for Community Reintegration Activities - Occupational Therapy ADL deficits - to improve, our occupation therapists will perform initial evaluation of pt's status upon admission and devise an individualized program for Bathing, Bed mobility, Community Reintegratio n, Cooking, Dressing, Eating, Fine Motor Skills, Grooming, Homemaking, Kitchen Mobility, Laundry, Pat ient Education, Safety Awareness, Splinting - Positioning, Transfers(Toilet, Tub, Shower), and Wheel Chair Management Need for customer care coordinator - to improve, our occupation therapists will perform initial evaluation of pt's status upon admission and devise an individualized program for Caregiver Training Weakness - to improve, our occupation therapists will perform initial evaluation of pt's status upon admission and devise an individualized program for Aquatic Therapy, Balance, Endurance, UE ROM, and UE strengthening - Other See attached MAR (Medication Administration Record) - Diet Type Continue Regular - Diet - Liquid Texture Continue Regular - Tube Feed Continue N/A - Diet - Solid Texture Continue Regular - Shower allowing shower FUNCTIONAL STATUS: UPDATED AT WEEKLY TEAM CONFERENCE - Bladder Same accident frequency: 7-Ind - No accidents in the past 7 days - Bowel Same accident frequency: 7-Ind - No accidents in the past 7 days - Walking Same score based on distance walked: 0(N/A) - Wheelchair Same score based on distance traveled: 0(N/A) FUNCTIONAL STATUS: - Self-Care A. Eating Ind B. Grooming Beulah C. Bathing Nick D. Dressing - Upper Nick E. Dressing - Lower modA F. Toileting Nick - Sphincter Control G. Bladder control Beulah H. Bowel control Beulah - Transfers Control I. Bed/Chair/Wheelchair Nick J. Toilet Nick K. Tub/Shower modA - Locomotion L. Walk/Wheelchair (B) Nick M. Stairs ADNO - Communication N. Comprehension (B) Beulah O. Expression (B) Beulah - Social Cognition P. Social Interaction Beulah Q. Problem Solving Beulah R. Memory Beulah - Endurance Fair - Balance Fair - Safety Awareness Fair QI SCORES: - Self-Care A. Eating 03-Partial/moderate assistance B. Oral hygiene 03-Partial/moderate assistance C. Toileting hygiene 03-Partial/moderate assistance E. Shower/bathe self 02-Substantial/maximal assistance F. Upper body dressing 03-Partial/moderate assistance G. Lower body dressing 02-Substantial/maximal assistance H. Putting on/taking off footwear 88-Not attempted due to medical condition or safety concerns - Mobility A. Roll left and right 03-Partial/moderate assistance B. Sit to lying 03-Partial/moderate assistance C. Lying to sitting on side of bed 03-Partial/moderate assistance D. Sit to stand 03-Partial/moderate assistance E. Chair/mfp-im-[id number] transfer 03-Partial/moderate assistance F. Toilet transfer 02-Substantial/maximal assistance G. Car transfer 88-Not attempted due to medical condition or safety concerns I. Walk 10 feet 02-Substantial/maximal assistance J. Walk 50 feet with two turns 88-Not attempted due to medical condition or safety concerns K. Walk 150 feet 88-Not attempted due to medical condition or safety concerns L. Walking 10 feet on uneven surfaces 88-Not attempted due to medical condition or safety concerns M. 1 step (curb) 88-Not attempted due to medical condition or safety concerns N. 4 steps 88-Not attempted due to medical condition or safety concerns O. 12 steps 88-Not attempted due to medical condition or safety concerns P. Picking up object 88-Not attempted due to medical condition or safety concerns R. Wheel 50 feet with two turns 88-Not attempted due to medical condition or safety concerns S. Wheel 150 feet 88-Not attempted due to medical condition or safety concerns - Bladder and Bowel Bladder continence Bowel continence - Endurance Fair - Balance Fair - Safety Awareness Fair CURRENT [facility]. DEFICITS: Self-Care, Mobility, Endurance, Balance, and Safety Awareness SIGNATURE PANEL: (CDT)
--- NOTE | 2021-03-12 19:18 | PN ---
Date of Progress Note: 03/12/2021 Subjective: The patient was seen this morning for followup. No new complaints or problems reported by the patient. He was sleeping, easily arousable, not in distress. Objective: Vital Signs: Reviewed. HEENT: Unremarkable. Lungs: Clear to auscultation. Heart: Sounds normal. Abdomen: Soft. Bowel sounds normal. No guarding, rigidity, tenderness, distention. Extremity: No leg edema. Laboratory Data: Fingerstick blood sugar readings reviewed. Impression: 1.Hypertension. 2.Diabetes mellitus. 3.Debility. 4.Generalized weakness. Plan: We will go ahead and continue current medications, continue physical therapy under guidance of Dr. Madrigal. Continue current blood pressure and diabetes management. I will see him tomorrow for followup. KARIN/MODL Voice ID: [id number] Report ID: [id number]
[2021-03-12] MEDS: MEMANTINE HCL 10 MG TABLET PO SCH (19:59)
[2021-03-12] MEDS: MELATONIN 3 MG TABLET PO SCH (19:59)
[2021-03-12] MEDS: MIRABEGRON 50 MG PO SCH (20:00)
[2021-03-12] MEDS: ROSUVASTATIN 10 MG TAB PO SCH (20:00)
[2021-03-12] MEDS: NORTRIPTYLINE HCL 25 MG CAP PO SCH (20:02)
[2021-03-13] MEDS: METOPROLOL 25 MG TABLET PO SCH ×2 (05:01→17:03)
[2021-03-13] MEDS: OMEPRAZOLE 20 MG PO SCH (07:16)
[2021-03-13 07:22] LABS: Absolute Lymphocytes (CBC) 1.3 K/uL (0.7-4.9); Basophils % 0.9 % (0-1.3); Hematocrit 34.1 % (39.6-49.0); Lymphocytes % 17.5 % (15.3-44.8); MPV 9.1 fL (7.6-11.3); RBC Red Blood Cell Count 3.56 M/uL (4.33-5.43)
[2021-03-13] MEDS: INSULIN -REGULAR HUMAN 50 UNIT/0.5 ML ML SQ SCH ×4 (07:30→19:31)
[2021-03-13 07:41] LABS: Albumin 2.4 g/dL (3.4-5.0); Magnesium 1.8 mg/dL (1.8-2.4); Potassium 3.9 mmol/L (3.5-5.1); Prealbumin 26.1 mg/dL (20-40)
[2021-03-13] MEDS: SITAGLIPTIN PHOS 100 MG TAB PO SCH (08:00)
[2021-03-13] MEDS: DIPYRIDAMOLE/ASPIRIN CAP ER PO SCH ×2 (08:00→19:30)
[2021-03-13] MEDS: MULTIVITAMIN PO SCH (08:00)
[2021-03-13] MEDS: LISINOPRIL 20 MG TABLET PO SCH (08:00)
[2021-03-13] MEDS: JUVEN PACKET PO SCH ×2 (08:00→19:29)
[2021-03-13] MEDS: GLUCERNA SHAKE 237 ML CAN PO SCH ×2 (08:00→19:29)
[2021-03-13] MEDS: [UNRECOGNIZED DRUG - OTHER] PO SCH (08:00)
[2021-03-13] MEDS: METFORMIN HCL 850 MG TAB PO SCH ×2 (08:00→17:03)
[2021-03-13] MEDS: MAGNESIUM OXIDE 400 MG TAB PO SCH ×2 (08:01→19:29)
[2021-03-13 10:34] VITALS: O2SAT 96
--- NOTE | 2021-03-13 17:10 | R.PN ---
PROGRESS NOTES ENCOUNTER DATE AND TIME: 03/13/2021 17:03 (CDT) NAME SIMON BRANDT DATE OF : 1940 DATE OF ADMISSION: 02/27/2021 19:42 (CDT) POST COVID-19CHIEF COMPLAINT: Post COVID-19 syndrome SUBJECTIVE: Pt denied any depression. Pt denied any Shortness of Breath. CBC with differential is essential normal. Glucose 98 to 160, calcium 8.2, prealbumin 26.1. Ambulated a total of 268' in the AM and PM sessions with a right hemiwalker and contact guard to mini mum assistance. Memantine 5 mg at bed time for memory loss. VITAL SIGNS Temperature: 98.2 F SBP/DBP: 114/68 Pulse: 72 Resp: 16 O2 Sat: 96 % on room air. MEDICATION ALLERGIES: No Known Drug Allergies (NKDA) ENVIRONMENTAL ALLERGIES: - Substance Allergies None Known - Other Allergies None Known NURSING: - Shower allowing shower ACTIVITIES OOB only with supervision THERAPIES: - Dietary and Nutrition Adequate Nutrition. Nutritional Education. Nutritional Supplements. PHYSICAL EXAM - Gen Alert and awake Lying in bed No apparent distress Oriented to: person, time, and place - Skin No skin breakdown. Normacephalic - Eyes No abnormalities - ENMT No abnormalities - Neck No abnormalities - CVS RRR - Chest No abnormalities - Abd + bowel sounds - GI Soft Deferred - No abnormalities - Ext No significant edema - MSK 1/5 weakness in left upper and 4/5 weakness in left lower extremity. - Neuro 1/5 weakness in left upper and 4/5 weakness in left lower extremity. - Psych No abnormalities ASSESSMENT: Pt. is a 81 yo Right-handed male.On 02/16/2021 he was admitted to [facility] diagnosis POST COVID-19.His impairment category is Pulmonary Disorders 10 - Other Pulmonary Disor ders (10.9).Pre-morbidly, Pt. was independent/mod-I in Safety Awareness, Balance, Communication, and Self-Care; and he had good Endurance, Self-Care, Sphincter Control, and Transfers Control.Currently, he has deficits of Locomotion, Safety Awareness, Transfers Control, Self-Care, Communication, and Bal ance.Pt. is now referred to [facility] for acute in-patient rehabilitation in order to maximize patient's functional independence in activities of daily living, strength, ROM, and mobility.- Rehab Goal Patient has realistic goal of being discharged at assistance level 7-Ind to reside at Home with Fami ly/Relatives. MDM/PLAN: - Physical Therapy Gait dysfunction - to improve, our physical therapists will perform initial evaluation of pt's statu s upon admission and devise an individualized program for Gait Training, and Wheel Chair mobility Inability to transfer - to improve, our physical therapists will perform initial evaluation of pt's status upon admission and devise an individualized program for Bed mobility Need for home safety evaluation - to improve, our physical therapists will perform initial evaluatio n of pt's status upon admission and devise an individualized program for Home Evaluation Need in caregiver upon discharge - to improve, our physical therapists will perform initial evaluati on of pt's status upon admission and devise an individualized program for Caregiver Training Edema - to improve, our physical therapists will perform initial evaluation of pt's status upon admi ssion and devise an individualized program for Elevation Training, and Lymphedema Therapy New precaution - to improve, our physical therapists will perform initial evaluation of pt's status upon admission and devise an individualized program for Patient precaution education Poor balance - to improve, our physical therapists will perform initial evaluation of pt's status up on admission and devise an individualized program for Balance Training Weakness - to improve, our physical therapists will perform initial evaluation of pt's status upon a dmission and devise an individualized program for Aquatic Therapy, Neuromuscular Reeducation, and Str engthening Achieving independence - to improve, our physical therapists will perform initial evaluation of pt's status upon admission and devise an individualized program for Community Reintegration Activities - Occupational Therapy ADL deficits - to improve, our occupation therapists will perform initial evaluation of pt's status upon admission and devise an individualized program for Bathing, Bed mobility, Community Reintegratio n, Cooking, Dressing, Eating, Fine Motor Skills, Grooming, Homemaking, Kitchen Mobility, Laundry, Pat ient Education, Safety Awareness, Splinting - Positioning, Transfers(Toilet, Tub, Shower), and Wheel Chair Management Need for career technical education instructor - to improve, our occupation therapists will perform initial evaluation of pt's status upon admission and devise an individualized program for Caregiver Training Weakness - to improve, our occupation therapists will perform initial evaluation of pt's status upon admission and devise an individualized program for Aquatic Therapy, Balance, Endurance, UE ROM, and UE strengthening - Other See attached MAR (Medication Administration Record) - Diet Type Continue Regular - Diet - Liquid Texture Continue Regular - Tube Feed Continue N/A - Diet - Solid Texture Continue Regular - Shower allowing shower FUNCTIONAL STATUS: UPDATED AT WEEKLY TEAM CONFERENCE - Bladder Same accident frequency: 7-Ind - No accidents in the past 7 days - Bowel Same accident frequency: 7-Ind - No accidents in the past 7 days - Walking Same score based on distance walked: 0(N/A) - Wheelchair Same score based on distance traveled: 0(N/A) FUNCTIONAL STATUS: - Self-Care A. Eating Ind B. Grooming Beulah C. Bathing Nick D. Dressing - Upper Nick E. Dressing - Lower modA F. Toileting Nick - Sphincter Control G. Bladder control Beulah H. Bowel control Beulah - Transfers Control I. Bed/Chair/Wheelchair Nick J. Toilet Nick K. Tub/Shower modA - Locomotion L. Walk/Wheelchair (B) Nick M. Stairs ADNO - Communication N. Comprehension (B) Beulah O. Expression (B) Beulah - Social Cognition P. Social Interaction Beulah Q. Problem Solving Beulah R. Memory Beulah - Endurance Fair - Balance Fair - Safety Awareness Fair QI SCORES: - Self-Care A. Eating 03-Partial/moderate assistance B. Oral hygiene 03-Partial/moderate assistance C. Toileting hygiene 03-Partial/moderate assistance E. Shower/bathe self 02-Substantial/maximal assistance F. Upper body dressing 03-Partial/moderate assistance G. Lower body dressing 02-Substantial/maximal assistance H. Putting on/taking off footwear 88-Not attempted due to medical condition or safety concerns - Mobility A. Roll left and right 03-Partial/moderate assistance B. Sit to lying 03-Partial/moderate assistance C. Lying to sitting on side of bed 03-Partial/moderate assistance D. Sit to stand 03-Partial/moderate assistance E. Chair/[id number]-ct-hshqq transfer 03-Partial/moderate assistance F. Toilet transfer 02-Substantial/maximal assistance G. Car transfer 88-Not attempted due to medical condition or safety concerns I. Walk 10 feet 02-Substantial/maximal assistance J. Walk 50 feet with two turns 88-Not attempted due to medical condition or safety concerns K. Walk 150 feet 88-Not attempted due to medical condition or safety concerns L. Walking 10 feet on uneven surfaces 88-Not attempted due to medical condition or safety concerns M. 1 step (curb) 88-Not attempted due to medical condition or safety concerns N. 4 steps 88-Not attempted due to medical condition or safety concerns O. 12 steps 88-Not attempted due to medical condition or safety concerns P. Picking up object 88-Not attempted due to medical condition or safety concerns R. Wheel 50 feet with two turns 88-Not attempted due to medical condition or safety concerns S. Wheel 150 feet 88-Not attempted due to medical condition or safety concerns - Bladder and Bowel Bladder continence Bowel continence - Endurance Fair - Balance Fair - Safety Awareness Fair CURRENT [facility]. DEFICITS: Self-Care, Mobility, Endurance, Balance, and Safety Awareness SIGNATURE PANEL: (CDT)
[2021-03-13] MEDS: MELATONIN 3 MG TABLET PO SCH (19:29)
[2021-03-13] MEDS: MEMANTINE HCL 10 MG TABLET PO SCH (19:29)
[2021-03-13] MEDS: NORTRIPTYLINE HCL 25 MG CAP PO SCH (19:30)
[2021-03-13] MEDS: MIRABEGRON 50 MG PO SCH (19:30)
[2021-03-13] MEDS: ROSUVASTATIN 10 MG TAB PO SCH (19:30)
--- NOTE | 2021-03-14 01:22 | PN ---
Date of Progress Note: 03/13/2021 Subjective: The patient was seen this morning for followup. Lying in bed. Not in distress. No new complaints or problems reported. Objective: Vital Signs: Reviewed. HEENT: Unremarkable. Lungs: Clear to auscultation. Heart: Sounds normal. Abdomen: Soft. Bowel sounds normal. No guarding, rigidity, tenderness, or distention. Extremities: No leg edema. Laboratory Data: Sodium 140, potassium 3.9, chloride 109, bicarb 29, BUN 24, creatinine 0.98, glucos e 141. White count 7.5, hemoglobin 11.7, platelets 195. Impression: 1.Stroke with left-sided hemiparesis. 2.Hypertension. 3.Diabetes mellitus. 4.Generalized weakness. 5.Debility. Plan: We will continue current medication. Continue current diabetes and blood pressure medications . Continue physical therapy under guidance of Dr. Madrigal. The patient is scheduled to go home [facility]. I will see him tomorrow morning for followup. KARIN/MODL Voice ID: [id number] Report ID: [id number]
[2021-03-14] MEDS: METOPROLOL 25 MG TABLET PO SCH (06:41)
[2021-03-14 07:13] VITALS: TEMP 98.3
[2021-03-14] MEDS: INSULIN -REGULAR HUMAN 50 UNIT/0.5 ML ML SQ SCH ×2 (07:13→11:23)
[2021-03-14] MEDS: JUVEN PACKET PO SCH (08:00)
[2021-03-14] MEDS: SITAGLIPTIN PHOS 100 MG TAB PO SCH (08:12)
[2021-03-14] MEDS: DIPYRIDAMOLE/ASPIRIN CAP ER PO SCH (08:13)
[2021-03-14] MEDS: [UNRECOGNIZED DRUG - OTHER] PO SCH (08:14)
[2021-03-14] MEDS: MULTIVITAMIN PO SCH (08:14)
[2021-03-14] MEDS: METFORMIN HCL 850 MG TAB PO SCH (08:15)
[2021-03-14] MEDS: OMEPRAZOLE 20 MG PO SCH (08:15)
[2021-03-14] MEDS: LISINOPRIL 20 MG TABLET PO SCH (08:23)
[2021-03-14 08:24] VITALS: BP 120/63
[2021-03-14] MEDS: GLUCERNA SHAKE 237 ML CAN PO SCH (09:28)
[2021-03-14] MEDS: MAGNESIUM OXIDE 400 MG TAB PO SCH (09:28)
--- NOTE | 2021-03-14 09:48 | P.RH.PN ---
Estimated Length of Stay: 15 Expected Discharge Date: 03/14/21 Discharge Disposition Plan: Home Family Support: Yes Halfway Goal: Mobility, Transfers, Self Care Vital Signs: Last Vital Signs Temp 98.3 F 03/14/21 07:12 Pulse 76 03/14/21 08:24 Resp 14 03/14/21 07:12 BP 120/63 03/14/21 08:24 Pulse Ox 91 03/14/21 07:12 Laboratory: Laboratory Last Values WBC 7.50 K/uL (4.3-10.9) 03/13/21 07:08 RBC 3.56 M/uL (4.33-5.43) L 03/13/21 07:08 Hgb 11.7 g/dL (13.6-17.9) L 03/13/21 07:08 Hct 34.1 % (39.6-49.0) L D 03/13/21 07:08 MCV 95.9 fL (80-100) 03/13/21 07:08 MCH 32.8 pg (27.0-35.0) 03/13/21 07:08 MCHC 34.2 g/dL (32.0-36.0) 03/13/21 07:08 RDW 13.2 % (12.1-15.2) 03/13/21 07:08 Plt Count 195 K/uL (152-406) 03/13/21 07:08 MPV 9.1 fL (7.6-11.3) 03/13/21 07:08 Neutrophils % 65.3 % (41.7-73.7) 03/13/21 07:08 Lymphocytes % 17.5 % (15.3-44.8) 03/13/21 07:08 Monocytes % 11.5 % (3.3-12.3) 03/13/21 07:08 Eosinophils % 4.8 % (0-4.4) H 03/13/21 07:08 Basophils % 0.9 % (0-1.3) 03/13/21 07:08 Absolute Neutrophils 4.9 K/uL (1.8-8.0) 03/13/21 07:08 Segmented Neutrophils 68 % (40-80) 03/08/21 06:53 Absolute Lymphocytes 1.3 K/uL (0.7-4.9) 03/13/21 07:08 Lymphocytes 18 % (15-42) 03/08/21 06:53 Monocytes 10 % (0-10) 03/08/21 06:53 Absolute Monocytes 0.9 K/uL (0.1-1.3) 03/13/21 07:08 Eosinophils 4 % (0-3) H 03/08/21 06:53 Absolute Eosinophils 0.4 K/uL (0-0.5) 03/13/21 07:08 Absolute Basophils 0.1 K/uL (0-0.5) 03/13/21 07:08 Platelet Estimate Adeq 03/08/21 06:53 Morphology Comment Not seen (NOT SEEN) 03/08/21 06:53 Sodium 140 mmol/L (136-145) 03/13/21 07:08 Potassium 3.9 mmol/L (3.5-5.1) 03/13/21 07:08 Chloride 109 mmol/L (98-107) H 03/13/21 07:08 Carbon Dioxide 29 mmol/L (21-32) 03/13/21 07:08 BUN 24 mg/dL (7-18) H 03/13/21 07:08 Creatinine 0.98 mg/dL (0.55-1.3) 03/13/21 07:08 Estimated GFR 74 mL/min (=/>90) L 03/13/21 07:08 Glucose 141 mg/dL (74-106) H 03/13/21 07:08 POC Glucose 130 mg/dL (65-120) H 03/14/21 07:00 Calcium 8.2 mg/dL (8.5-10.1) L D 03/13/21 07:08 Magnesium 1.8 mg/dL (1.8-2.4) 03/13/21 07:08 Albumin 2.4 g/dL (3.4-5.0) L 03/13/21 07:08 Prealbumin 26.1 mg/dL (20-40) 03/13/21 07:08 Urine Color Yellow (Yellow) 03/11/21 12:30 Urine Appearance Clear (Clear) 03/11/21 12:30 Urine pH 7.5 (5.0-7.0) H 03/11/21 12:30 Ur Specific [place] 1.015 (1.005-1.030) 03/11/21 12:30 Glucose (UA)(Auto) Negative (Negative) 03/11/21 12:30 Urine Ketones Negative (Negative) 03/11/21 12:30 Urine Blood Negative (Negative) 03/11/21 12:30 Urine Nitrite Negative (Negative) 03/11/21 12:30 Urine Bilirubin Negative (Negative) 03/11/21 12:30 Urine Urobilinogen 0.2 mg/dL (0.2-1.0) 03/11/21 12:30 Ur Leukocyte Esterase Negative (Negative) 03/11/21 12:30 Urine RBC <5 /HPF (NONE SEEN) 02/27/21 20:00 Urine WBC <5 /HPF (<5) 02/27/21 20:00 Ur Squamous Epith Cells 5-10 /HPF (NONE SEEN) H 02/27/21 20:00 Urine Bacteria <20 /HPF (NONE SEEN) 02/27/21 20:00 Urine Culture Reflexed Not needed 02/27/21 20:00 Urine Total Protein Negative (Negative) 03/11/21 12:30 Weight: 134 lb 6.4 oz Within Defined Parameters: Yes Wound Present: No Closed Surgical Incision Present: No Negative Pressure Wound Therapy Present: No Physician Update: He is doing fairly well with contact guard with transfers, walking and ADLs. He does well with ambulation wiith his daughter and . He will have home health for discharge today. Medical Issues: doing better medically Pain Issues: none Nutritional Needs: need to add protein supplement Psychosocial Needs: outpt Functional Improvement: Patient has progressed well in all aspects of PT services, including transfers, posture, balance, gait tx., etc. Patient presents w/ good work ethic, and attitude toward therapy. Summary: Patient's care plan and senior care goals have been reviewed and revised as necessary. Please see the Rehabilitation Signature page for all necessary signatures.
--- NOTE | 2021-03-15 04:15 | DS ---
Date of Discharge: 03/14/2021 Disposition: Discharged to go home. Physical Examination: HEENT: Unremarkable. Lungs: Clear to auscultation. Heart: Sounds normal. Abdomen: Soft. Bowel sounds normal. No guarding, rigidity, tenderness, or distention. Extremities: No leg edema. Neurologic: Left-sided hemiparesis, unchanged from before. Laboratory Data: Last CBC from yesterday, white count 7.5, hemoglobin 11.7, platelets 195. Upon adm ission, white count 10.8, hemoglobin 13.8, platelets 389. Last chemistry from yesterday, sodium 140, potassium 3.9, chloride 109, bicarb 29, BUN 24, creatinine 0.98, glucose 141, albumin 2.4. Upon adm ission, sodium 139, potassium 3.7, chloride 105, bicarb 29, BUN 24, creatinine 1.12, glucose 210. Hospital Course: This is an 81-year-old very pleasant male patient admitted to rehab floor with gene ralized weakness. Please see dictated H and P for more information. The patient was admitted to [facility] from outside hospital and he was admitted to outside hospital because of the COVID-19 infect ion. Here on rehab floor, he received physical therapy, occupational therapy, and consultation with Dr. Madrigal, who managed the patient's rehab aspect. Medically, he was stable. His home medication s were continued. He did have 1 episode of fall without any injury and during this time, he was actu ally sitting in a wheelchair and tried to get up unassisted and slipped and went down to the floor, b ut did not have any injury. Overall, his condition has improved and today he was discharged to [facility] with his and stable and improved condition. Final Diagnoses: 1.Generalized weakness. 2.Debility. 3.Type 2 diabetes mellitus. 4.Hypertension. 5.Mixed hyperlipidemia. 6.Stroke with left-sided hemiparesis. 7.Carotid artery stenosis. 8.Gastroesophageal reflux disease. 9.Benign prostatic hypertrophy. 10.Overactive bladder. Discharge Medications And Instructions: 1.Continue prior home medications. 2.Follow up at my office next week on at 10 a.m., which is on 03/20/2021. KARIN/MODL Voice ID: [id number] Report ID: [id number]
== END 2021-03-14 14:00 | disposition home health service (06) | DRG 948 ==
LOC: 5TH 02-27 19:42
PROVIDERS: ADMIT Internal Medicine; ATTEND Internal Medicine
DX: R53.1 Weakness (principal); I69.354 Hemiplegia and hemiparesis following cerebral infarction affecting left non-dominant side; R53.81 Other malaise; E11.9 Type 2 diabetes mellitus without complications; I10 Essential (primary) hypertension; E78.2 Mixed hyperlipidemia; I65.29 Occlusion and stenosis of unspecified carotid artery; K21.9 Gastro-esophageal reflux disease without esophagitis; N40.0 Benign prostatic hyperplasia without lower urinary tract symptoms; N32.81 Overactive bladder; Z86.16 Personal history of COVID-19; E83.42 Hypomagnesemia; D64.9 Anemia, unspecified; K59.00 Constipation, unspecified; G47.00 Insomnia, unspecified
CPT/HCPCS: 36415; 80048; 81001; 81003; 82040; 82947; 83735; 84134; 85025; 87086; 87088; 92523; 97110; 97116; 97127; 97161; 97165; 97530; 97542; J1650

== ENCOUNTER 2021-04-30 13:32 | Emergency (ER) | payer OTHER ==
--- NOTE | 2021-04-30 14:03 | RAD REPORT ---
EXAM DESCRIPTION: CT - Head Brain Wo Cont - 04/30/2021 1:38 pm CLINICAL HISTORY: AMS,fall Headache, drowsiness COMPARISON: Head Brain Wo Cont dated 02/15/2021; Head Brain Wo Cont dated 07/28/2016 TECHNIQUE: All CT scans are performed using dose optimization technique as appropriate and may inclu de automated exposure control or mA/KV adjustment according to patient size. FINDINGS: 20 mm thick left acute subdural hematoma is present.This results in pcct-gr-epbtg midline shift of approximately 11-12 mm. No depressed skull fractures seen. Paranasal sinuses and mastoids are clear. IMPRESSION: 20 mm thick left acute subdural hematoma with rpgt-vs-tqeub midline shift of 11-12 mm. The findings were discussed with Samuel Colin in the ER on 04/30/2021 at 1:15 p.m. by telephone.
[2021-04-30 14:04] LABS: Potassium 3.7 mmol/L (3.5-5.1)
[2021-04-30] MEDS ORDERED: LEVETIRACETAM 500 MG/5 ML VIAL IV ONE (14:09)
[2021-04-30] MEDS ORDERED: NA CHLORIDE 0.9% 100 ML ONE (14:09)
[2021-04-30] MEDS ORDERED: Nicardipine/NS 25 MG/250 ML KIT IV ONE (14:17)
[2021-04-30 14:19] LABS: Protime INR 0.97
[2021-04-30 14:27] LABS: Absolute Lymphocytes (CBC) 2.7 K/uL (0.7-4.9); Basophils % 0.8 % (0-1.3); Hematocrit 39.2 % (39.6-49.0); Lymphocytes % 28.4 % (15.3-44.8); MPV 10.3 fL (7.6-11.3); RBC Red Blood Cell Count 4.04 M/uL (4.33-5.43)
[2021-04-30] MEDS ORDERED: ONDANSETRON 4 MG/2 ML VIAL ONE (14:34)
[2021-04-30] MEDS ORDERED: MANNITOL 20% 500 ML IV ONE (14:34)
--- NOTE | 2021-04-30 14:53 | EDPHYS ---
Physician Documentation [facility] Name: Ruel Kumari Age: 81 yrs Sex: Male : 1940 Arrival Date: 04/30/2021 Time: : Bed 4 Private MD: ED Physician Andrey Perez HPI: 04/30 15:40 This 81 yrs old Male presents to ER via EMS with complaints of Altered Mental kdr Status, Fall Injury. 15:40 The patient presents with decreased mental status, decreased responsiveness. Onset: The kdr symptoms/episode began/occurred suddenly, just prior to arrival. Possible causes: head injury, a fall, from a standing position. Associated signs and symptoms: Pertinent positives: agitation, confusion, weakness, AMS. Current symptoms: In the emergency department the patient's symptoms are unchanged from the initial presentation, Patient continues to be poorly responsive. On initial exam, the patient was able to follow commands on a limited basis.. Patient's baseline: Neuro: alert and fully oriented, Motor: no deficits, Ambulation: walks without assistance, Speech: normal for age. The patient has not experienced similar symptoms in the past. The patient had fallen last week and hit his head.. Historical: - Allergies: 13:36 Bactrim; ap3 - Home Meds: 13:36 Aggrenox 25-200 mg Oral CM12 1 cap 2 times per day [Active]; Januvia 100 mg Oral tab 1 ap3 tab once daily [Active]; lisinopril 20 mg Oral tab 1 tab once daily [Active]; metoprolol tartrate 25 mg Oral tab 1 tab 2 times per day [Active]; Myrbetriq 50 mg Oral Tb24 1 tab once daily [Active]; metformin 850 mg Oral tab 1 tab 2 times per day [Active]; nortriptyline 25 mg Oral cap 1 cap once daily [Active]; rosuvastatin 10 mg oral cpSP 1 cap once daily [Active]; - PMHx: 13:36 carotid artery sx; Diabetes - NIDDM; Hernia; High Cholesterol; Hypertension; Kidney ap3 stones; left side impairment; stroke; 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 - Social history:: Smoking status: unknown. ROS: 15:40 Constitutional: Unobtainable secondary to altered mental status kdr 15:40 Unable to obtain ROS due to altered mental status, obtunded state. Exam: 15:40 Constitutional: This is a well developed, well nourished patient who is poorly kdr responsive but in no acute distress. 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 He is though moving all extremities to minimal stimuli. Head/Face: Normocephalic, atraumatic. Neck: Trachea midline, no thyromegaly or masses palpated, and no cervical lymphadenopathy. Supple, full range of motion without nuchal rigidity, or vertebral point tenderness. No Meningismus. Chest/axilla: Normal chest wall appearance and motion. Nontender with no deformity. No lesions are appreciated. Cardiovascular: Regular rate and rhythm with a normal S1 and S2. No gallops, murmurs, or rubs. Normal PMI, no JVD. No pulse deficits. Respiratory: Lungs have equal breath sounds bilaterally, clear to auscultation and percussion. No rales, rhonchi or wheezes noted. No increased work of breathing, no retractions or nasal flaring. Abdomen/GI: Soft, non-tender, with normal bowel sounds. No distension or tympany. No guarding or rebound. No evidence of tenderness throughout. Back: No spinal tenderness. No costovertebral tenderness. Full range of motion. Skin: Warm, dry with normal turgor. Normal color with no rashes, no lesions, and no evidence of cellulitis. MS/ Extremity: Pulses equal, no cyanosis. Neurovascular intact. Full, normal range of motion. 15:40 Neuro: Patient responds to stimuli does not show decorticate or decerebrate movements. Vital Signs: 13:33 BP 200 / 97; Pulse 73; Resp 21; Temp 97.3; Pulse Ox 95% on R/A; ap3 13:47 BP 197 / 95; Pulse 90; Pulse Ox 95% on R/A; ap3 MDM: 14:53 Patient medically screened. kdr 15:40 Data reviewed: vital signs, nurses notes, lab test result(s), radiologic studies. kdr Counseling: I had a detailed discussion with the patient and/or guardian regarding: the historical points, exam findings, and any diagnostic results supporting the discharge/admit diagnosis, lab results, radiology results, the need to transfer to another facility. ED course: Patient was transferred in stable but critical condition via [facility] to [place]. 04/30 13:36 Order name: CBC with Diff ss 04/30 13:36 Order name: Chem 7 ss 04/30 13:36 Order name: PT-INR ss 04/30 13:36 Order name: Type And Screen ss 04/30 13:37 Order name: Type and Screen EDMS 04/30 13:35 Order name: CT Head Brain wo Cont ss Administered Medications: 13:51 Drug: niCARdipine (25mg/250ml) 5 mg/hr Route: IV; Rate: calculated rate; Site: left ap3 hand; 13:52 Drug: Keppra (levETIRAcetam) 1000 mg Route: IV; Rate: calculated rate; Site: right vg1 antecubital; Disposition Summary: 04/30/21 14:53 Transfer Ordered Transfer Location: [facility] kdr Reason: Higher level of care kdr Condition: Serious kdr Problem: new kdr Symptoms: are unchanged kdr Accepting Physician: Neurosurgical attending(04/30/21 14:59) ap3 Diagnosis - Acute subdural hematoma, closed head injury, altered mental status kdr Discharge Instructions: - Discharge Summary Sheet bd Forms: - SBAR form bd - Medication Reconciliation Form kdr Signatures: Dispatcher [employer] EDAndrey Babcock MD MD kdr Samuel Colin PA PA jmm Prokisch, Amanda RN RN ap3 Elvia Lantigua RN RN vg1 Corrections: (The following items were deleted from the chart) 13:38 13:36 PSHx: triple bypass; ap3 ap3 13:38 13:36 PSHx: hernia repair; ap3 ap3 13:38 13:36 PSHx: R carotid SX; ap3 ap3 14:01 13:36 CORONAVIRUS+MRBandarLAB.BRZ ordered. EDMS EDMS 14:59 14:53 Neurosurgical attending kdr ap3
--- NOTE | 2021-04-30 14:53 | ER ---
Nurse's Notes [facility] Name: Ruel Kumari Age: 81 yrs Sex: Male : 1940 Arrival Date: 04/30/2021 Time: 13:29 Bed 4 Private MD: Diagnosis: Acute subdural hematoma, closed head injury, altered mental status Presentation: 04/30 13:33 Chief complaint: EMS states: patient fell today for the second time in a week. Patient ap3 is reported to have severe nausea/vomiting and altered mental status. Coronavirus screen: At this time, the client does not indicate any symptoms associated with coronavirus-19. Ebola Screen: No symptoms or risks identified at this time. Initial Sepsis Screen: Does the patient meet any 2 criteria? RR > 20 per min. Altered Mental Status. Yes Does the patient have a suspected source of infection? No. Patient's initial sepsis screen is negative. Risk Assessment: Do you want to hurt yourself or someone else? Patient reports no desire to harm self or others. Onset of symptoms was April 30, 2021. 13:33 Method Of Arrival: EMS: [facility] ap3 13:33 Acuity: MARLIN 1 ap3 Triage Assessment: 13:44 General: Appears comfortable, Behavior is flat. Pain: Unable to use pain scale. Neuro: ap3 Oriented to person. Neuro: patient shakes head no when asked if he knows his birthday. Cardiovascular: Patient's skin is warm and dry. Respiratory: Airway is patent. GI: Parent/caregiver reports the patient having nausea, vomiting. Historical: - Allergies: 13:36 Bactrim; ap3 - Home Meds: 13:36 Aggrenox 25-200 mg Oral CM12 1 cap 2 times per day [Active]; Januvia 100 mg Oral tab 1 ap3 tab once daily [Active]; lisinopril 20 mg Oral tab 1 tab once daily [Active]; metoprolol tartrate 25 mg Oral tab 1 tab 2 times per day [Active]; Myrbetriq 50 mg Oral Tb24 1 tab once daily [Active]; metformin 850 mg Oral tab 1 tab 2 times per day [Active]; nortriptyline 25 mg Oral cap 1 cap once daily [Active]; rosuvastatin 10 mg oral cpSP 1 cap once daily [Active]; - PMHx: 13:36 carotid artery sx; Diabetes - NIDDM; Hernia; High Cholesterol; Hypertension; Kidney ap3 stones; left side impairment; stroke; 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 - Social history:: Smoking status: unknown. Screenin:38 Abuse screen: Denies threats or abuse. Nutritional screening: No deficits noted. ap3 Tuberculosis screening: No symptoms or risk factors identified. Fall Risk Fall in past 12 months (25 points). Secondary diagnosis (15 points) impaired mobility, CVA, IV access (20 points). Ambulatory Aid- None/Bed Rest/Nurse Assist (0 pts). Gait- Impaired (20 pts.). Mental Status- Overestimates/Forgets Limitations (15 pts.). Total Reeves Fall Scale indicates High Risk Score (45 or more points). Fall prevention measures have been instituted. Side Rails Up X 2 Placed Close to Nursing Station Frequent Obs/Assessments Occuring As available patient and family educated on Fall Prevention Program and Strategies. Assessment: 13:47 Reassessment: patients primary care doctor is Vishnu Grewal . ap3 13:48 Reassessment: let it be noted EMS was informed the patient fell April 24, ap3 2020. Then again, today April 30, 2021 at approx 1130. The family states that the patient was disoriented after todays fall, and began vomiting. This is when the family called 911. 13:50 Reassessment: [facility] arrived and intubated patient at the bedside. ap3 Vital Signs: 13:33 BP 200 / 97; Pulse 73; Resp 21; Temp 97.3; Pulse Ox 95% on R/A; ap3 13:47 BP 197 / 95; Pulse 90; Pulse Ox 95% on R/A; ap3 ED Course: 13:29 Patient arrived in ED. ss 13:32 Patient has correct armband on for positive identification. Placed in gown. Bed in low mh5 position. Call light in reach. Side rails up X2. Warm blanket given. Pillow given. front desk monitor on. Pulse ox on. Pulse ox on. 13:32 Initial lab(s) drawn, by ED staff, sent to lab. EKG done, by ED staff, reviewed by [facility] Andrey Perez MD. Inserted saline lock: 18 gauge in right wrist, using aseptic technique. Blood collected. Maintain EMS IV. Dressing intact. Good blood return noted. Site clean \T\ dry. 13:33 Samantha Levin, RN is Primary Nurse. ap3 13:34 Triage completed. ap3 13:34 COVID swab sent to lab. mh5 13:37 CT Head Brain wo Cont In Process Unspecified. EDMS 13:41 Andrey Perez MD is Attending Physician. kdr 13:46 Arm band placed on right wrist. ap3 13:46 Welch cath inserted, using sterile technique, 16 Fr., by ED staff, balloon inflated, to ap3 gravity drainage, clamped. 13:51 PT-INR Sent. 5 13:51 CBC with Diff Sent. [facility] 13:51 Chem 7 Sent. [facility] 13:51 Type And Screen Sent. 5 13:51 Type and Screen Sent. 5 13:51 T\T\S collected, blood band applied to patient. mh5 14:28 No provider procedures requiring assistance completed. Patient transferred, IV remains ap3 in place. Administered Medications: 13:51 Drug: niCARdipine (25mg/250ml) 5 mg/hr Route: IV; Rate: calculated rate; Site: left ap3 hand; 13:52 Drug: Keppra (levETIRAcetam) 1000 mg Route: IV; Rate: calculated rate; Site: right vg1 antecubital; Outcome: 14:28 Transferred by helicopter to [facility]. ap3 14:28 Condition: stable 14:28 Instructed on the need for transfer. 14:53 ER care complete, transfer ordered by . kdr 14:59 Patient left the ED. ap3 Signatures: Dispatcher [employer] EDND Andrey Perez MD MD kdr Sheyla Palomino RN RN ss Martinez, Maria [facility] Samantha Levin, RN RN ap3 Elvia Lantigua RN RN vg1 Corrections: (The following items were deleted from the chart) 13:38 13:36 PSHx: triple bypass; ap3 ap3 13:38 13:36 PSHx: hernia repair; ap3 ap3 13:38 13:36 PSHx: R carotid SX; ap3 ap3 13:39 13:38 General: Appears ap3 ap3 14:01 13:51 CORONAVIRUS+MR.LAB.BRZ drawn and sent. mh5 EDND
[2021-04-30 15:11] VITALS: TEMP 97.3; O2SAT 95
[2021-04-30 15:12] VITALS: BP 197/95
--- NOTE | 2021-05-01 15:58 | EKG ---
Test Date: 2021-04-30 Test Time: 13:14:08 Bench Jeweler: MEASUREMENT RESULTS: Intervals: Rate: 69 OR: 176 QRSD: 142 QT: 460 QTc: 492 Wheeler: P: 69 OR: 176 QRS: -38 T: 23 INTERPRETIVE STATEMENTS: Normal sinus rhythm Left axis deviation Right bundle branch block Abnormal ECG Compared to ECG 02/15/2021 20:44:05 Left-axis deviation now present Electronically Signed On 05-01-21 15:56:29 CDT by Fuentes Cruz
== END 2021-04-30 14:59 | disposition short-term general hospital (02) ==
LOC: ER 13:32
DX: S06.5X0A Traumatic subdural hemorrhage without loss of consciousness, initial encounter (principal); W19.XXXA Unspecified fall, initial encounter; I10 Essential (primary) hypertension; E11.9 Type 2 diabetes mellitus without complications; Z88.1 Allergy status to other antibiotic agents; Z86.73 Personal history of transient ischemic attack (TIA), and cerebral infarction without residual deficits; Z20.822 Contact with and (suspected) exposure to COVID-19
CPT/HCPCS: 93005; 85025; 80048; 36415; 86900; 86850; 85610; 86901; 70450; 51702; 99291; U0003; J1953; J2405